=== PATIENT | male | born 1960 | race Two or more races ===

== ENCOUNTER → 2019-08-31 | Outpatient (CLI) | payer MEDICAID ==
[~2019-08-31] MED LIST: ASP81EC PO; ASPI-404 PO; BLOO1KIT60 XX; CHOL1CAP PO; COLC0.6T56 PO; DOCU100C8 PO; ERGO1CAP23 PO; ERGO50003 PO; FAM20T PO; FEBU40TA PO; FLU01T GT; FLU01T PO; GABA100C9 PO; GABA300C10 PO; HYDR-4833 PO; INSUINJ37 SC; LINE1TAB5 PO; MAGN400T21 PO; MAGN400T26 PO; MYCO250C PO; MYCO500T3 PO; PATI1POW PO; PRED20TA2 PO; SITA50TA PO; SODIPOW32 OR; SPECTAB OR; TACR1GRA PO; TACR1TAB2 PO; [UNRECOGNIZED DRUG - CODE] PO
[2019-08-31 15:15] LABS: Eosinophils # (auto) 0.2 uL; Eosinophils % (auto) 2.8 % (0.0-7.0); Lymphocytes # (auto) 0.5 uL; Monocytes # (auto) 0.4 uL
[2019-08-31 15:16] LABS: Basophils # (auto) 0 uL; Basophils % (auto) 0.5 % (0.0-2.0); Hematocrit 34.2 % (41.0-53.0); Hemoglobin 11.1 g/dL (13.5-17.5); Lymphocytes % (auto) 7.6 % (10.0-50.0); Mean Corpuscular Hemoglobin 27.4 pg (28.0-32.0); Mean Corpuscular Hgb Conc. 32.5 g/dL (32.0-36.0); Monocytes % (auto) 5.1 % (0.0-12.0); Neutrophils # (auto) 5.9 uL; Nucleated Red Blood Cells % 0.2 %; Platelet Count (auto) 89 10^3/uL (140-450); Red Blood Cells 4.07 10^6/uL (4.5-5.90); Red Cell Distribution Width 18.6 % (11.8-14.3)
[2019-08-31 15:32] LABS: Albumin 3.6 g/dL (3.4-5.0); Potassium 4.7 mmol/L (3.5-5.1)
[2019-08-31 15:36] LABS: BUN/Creatinine Ratio 25.6; Bilirubin, Total 0.3 mg/dL (0.2-1.0); Total Protein 7.7 g/dL (6.4-8.2); Uric Acid 4.8 mg/dL (3.5-7.2)
== END | disposition home or self-care (01) ==
LOC: LAB 14:43
PROVIDERS: ATTEND Internal Medicine
DX: E11.22 Type 2 diabetes mellitus with diabetic chronic kidney disease (principal); N18.3 Chronic kidney disease, stage 3 (moderate); M10.9 Gout, unspecified; D64.9 Anemia, unspecified
CPT/HCPCS: 36415; 80053; 84550; 85025

== ENCOUNTER 2019-09-07 10:51 | Emergency (ER) | payer MEDICAID ==
[~2019-09-07] VITALS: Ht 172.7 cm; Wt 84.8 kg
[2019-09-07 13:25] VITALS: BP 126/81
== END 2019-09-07 13:50 | disposition home or self-care (01) ==
LOC: ER 10:51
DX: S20.212A Contusion of left front wall of thorax, initial encounter (principal); E11.22 Type 2 diabetes mellitus with diabetic chronic kidney disease; N18.9 Chronic kidney disease, unspecified; Z94.4 Liver transplant status; Z79.899 Other long term (current) drug therapy; Z79.82 Long term (current) use of aspirin; V48.5XXA Car driver injured in noncollision transport accident in traffic accident, initial encounter; Y93.I9 Activity, other involving external motion; Y92.488 Other paved roadways as the place of occurrence of the external cause; Y99.8 Other external cause status
CPT/HCPCS: 71046; 93005

== ENCOUNTER → 2019-11-25 | Outpatient (CLI) | payer MEDICAID ==
[2019-11-25 09:13] LABS: Hemoglobin 12.9 g/dL (13.5-17.5); Lymphocytes # (auto) 0.7 10 ^3/uL (0.4-5.4); Monocytes # (auto) 0.3 10 ^3/uL (0-1.3); White Blood Cell 5.2 10^3/uL (4.4-10.8)
[2019-11-25 09:15] LABS: Basophils # (auto) 0.1 10 ^3/uL (0-0.2); Eosinophils # (auto) 0.2 10 ^3/uL (0-0.8); Eosinophils % (auto) 3.8 % (0.0-7.0); Hematocrit 38.7 % (41.0-53.0); Lymphocytes % (auto) 13.4 % (10.0-50.0); Mean Corpuscular Hemoglobin 28.1 pg (28.0-32.0); Mean Corpuscular Hgb Conc. 33.3 g/dL (32.0-36.0); Mean Corpuscular Volume 84.4 fL (80.0-100.0); Monocytes % (auto) 5.5 % (0.0-12.0); Neutrophils % (auto) 76.3 % (37.0-80.0); Nucleated Red Blood Cells % 0.4 %; Red Blood Cells 4.59 10^6/uL (4.5-5.90); Red Cell Distribution Width 16.5 % (11.8-14.3)
[2019-11-25 09:17] LABS: Platelet Count (auto) 55 10^3/uL (140-450)
[2019-11-25 09:36] LABS: INR 1.04 (0.9-1.15); Partial Thromboplastin Time 27.3 sec (23.64-32.05)
[2019-11-25 09:38] LABS: Albumin 3.9 g/dL (3.4-5.0); Calcium 8.7 mg/dL (8.5-10.1); Potassium 4.5 mmol/L (3.5-5.1)
[2019-11-25 09:44] LABS: BUN/Creatinine Ratio 23.6; Bilirubin, Total 0.5 mg/dL (0.2-1.0); Total Protein 7.5 g/dL (6.4-8.2)
== END | disposition home or self-care (01) ==
LOC: LAB 08:41
PROVIDERS: ATTEND Internal Medicine
DX: Z01.818 Encounter for other preprocedural examination (principal); M10.9 Gout, unspecified; E11.22 Type 2 diabetes mellitus with diabetic chronic kidney disease; N18.3 Chronic kidney disease, stage 3 (moderate); Z12.5 Encounter for screening for malignant neoplasm of prostate; Z12.11 Encounter for screening for malignant neoplasm of colon
CPT/HCPCS: 36415; 80053; 80061; 82043; 83036; 84153; 85025; 85610; 85730; 87086

== ENCOUNTER 2019-12-21 10:18 | Emergency (ER) | payer MEDICAID ==
[~2019-12-21] VITALS: Ht 152.4 cm; Wt 81.6 kg
[2019-12-21 11:11] LABS: Urine Bacteria NONE SEEN /hpf (None Seen); Urine Blood 1+ /uL (Negative); Urine Specific Gravity 1.019 (1.001-1.035); Urine WBC 2 /hpf (0 - 3)
[2019-12-21 11:21] LABS: Basophils # (auto) 0.1 10 ^3/uL (0-0.2); Basophils % (auto) 0.6 % (0.0-2.0); Eosinophils # (auto) 0.3 10 ^3/uL (0-0.8); Eosinophils % (auto) 3.4 % (0.0-7.0); Hematocrit 38.3 % (41.0-53.0); Hemoglobin 12.7 g/dL (13.5-17.5); Lymphocytes # (auto) 0.7 10 ^3/uL (0.4-5.4); Lymphocytes % (auto) 7.2 % (10.0-50.0); Mean Corpuscular Hemoglobin 28.3 pg (28.0-32.0); Mean Corpuscular Hgb Conc. 33.1 g/dL (32.0-36.0); Mean Corpuscular Volume 85.4 fL (80.0-100.0); Monocytes # (auto) 0.6 10 ^3/uL (0-1.3); Monocytes % (auto) 6.2 % (0.0-12.0); Neutrophils # (auto) 7.5 10 ^3/uL (1.6-8.6); Neutrophils % (auto) 82.6 % (37.0-80.0); Nucleated Red Blood Cells % 0.1 %; Platelet Count (auto) 77 10^3/uL (140-450); Red Blood Cells 4.49 10^6/uL (4.5-5.90); Red Cell Distribution Width 15.6 % (11.8-14.3); White Blood Cell 9.1 10^3/uL (4.4-10.8)
[2019-12-21 11:40] LABS: Albumin 3.7 g/dL (3.4-5.0); Calcium 9.2 mg/dL (8.5-10.1); Potassium 4.1 mmol/L (3.5-5.1)
[2019-12-21 11:42] LABS: BUN/Creatinine Ratio 20.6; Bilirubin, Total 0.3 mg/dL (0.2-1.0); Total Protein 7.9 g/dL (6.4-8.2)
[2019-12-21] MEDS ORDERED: LIDOCAINE 1% (LOCAL ANESTH.) PF 5ml SDV ID ONE (12:00)
[2019-12-21] MEDS ORDERED: LIDOCAINE 2% (LOCAL ANESTH.) PF 5ml SDV ONE (13:39)
[2019-12-21 14:56] VITALS: BP 142/84
== END 2019-12-21 15:06 | disposition home or self-care (01) ==
LOC: ER 10:18
DX: M25.462 Effusion, left knee (principal); R10.9 Unspecified abdominal pain; E11.22 Type 2 diabetes mellitus with diabetic chronic kidney disease; N18.9 Chronic kidney disease, unspecified
CPT/HCPCS: 20610; 36415; 73562; 74176; 80053; 81001; 84550; 85025; 99285; J2001

== ENCOUNTER → 2019-12-23 | Outpatient (CLI) | payer MEDICAID ==
[2019-12-23 11:35] LABS: Potassium 4.9 mmol/L (3.5-5.1)
[2019-12-23 11:40] LABS: BUN/Creatinine Ratio 20.6; Calcium 8.9 mg/dL (8.5-10.1)
[2019-12-23 11:49] LABS: CRP High Sensitivity 17.1 mg/dL (< 0.3)
== END | disposition home or self-care (01) ==
LOC: LAB 10:54
PROVIDERS: ATTEND Internal Medicine
DX: E11.21 Type 2 diabetes mellitus with diabetic nephropathy (principal); I27.20 Pulmonary hypertension, unspecified; D69.6 Thrombocytopenia, unspecified
CPT/HCPCS: 36415; 80048; 85652; 86141

== ENCOUNTER → 2020-01-06 | Outpatient (CLI) | payer MEDICAID ==
[2020-01-06 14:27] LABS: Calcium 8.4 mg/dL (8.5-10.1); Potassium 3.6 mmol/L (3.5-5.1)
[2020-01-06 14:29] LABS: BUN/Creatinine Ratio 23.6; Uric Acid 2.9 mg/dL (3.5-7.2)
== END | disposition home or self-care (01) ==
LOC: LAB 13:16
PROVIDERS: ATTEND Internal Medicine
DX: E11.9 Type 2 diabetes mellitus without complications (principal); M17.10 Unilateral primary osteoarthritis, unspecified knee
CPT/HCPCS: 36415; 80048; 84550

== ENCOUNTER → 2020-01-17 | Outpatient (CLI) | payer MEDICAID ==
[~2020-01-17] MED LIST changes: -ASP81EC PO; +ASPI-394 PO; -FAM20T PO; +FAMO20TA10 PO
[2020-01-17 09:55] LABS: Potassium 3.4 mmol/L (3.5-5.1)
[2020-01-17 10:06] LABS: BUN/Creatinine Ratio 18.8; Calcium 8.9 mg/dL (8.5-10.1)
== END | disposition home or self-care (01) ==
LOC: LAB 09:10
PROVIDERS: ATTEND Internal Medicine
DX: E11.9 Type 2 diabetes mellitus without complications (principal)
CPT/HCPCS: 36415; 80048

== ENCOUNTER 2020-02-13 10:36 | Inpatient (IN) | payer MEDICAID ==
[~2020-02-13] VITALS: Ht 172.7 cm; Wt 97.5 kg
[~2020-02-13 10:36] MED LIST changes: -ASPI-404 PO; +ASPI-543 PO
[2020-02-13 11:45] LABS: Basophils # (auto) 0 10 ^3/uL (0-0.2); Basophils % (auto) 0.6 % (0.0-2.0); Eosinophils # (auto) 0.3 10 ^3/uL (0-0.8); Eosinophils % (auto) 4.7 % (0.0-7.0); Hematocrit 38.2 % (41.0-53.0); Hemoglobin 12.5 g/dL (13.5-17.5); Lymphocytes # (auto) 0.8 10 ^3/uL (0.4-5.4); Lymphocytes % (auto) 13.4 % (10.0-50.0); Mean Corpuscular Hemoglobin 27.4 pg (28.0-32.0); Mean Corpuscular Hgb Conc. 32.8 g/dL (32.0-36.0); Mean Corpuscular Volume 83.5 fL (80.0-100.0); Monocytes # (auto) 0.3 10 ^3/uL (0-1.3); Monocytes % (auto) 5.7 % (0.0-12.0); Neutrophils # (auto) 4.6 10 ^3/uL (1.6-8.6); Neutrophils % (auto) 75.6 % (37.0-80.0); Nucleated Red Blood Cells % 0.1 %; Platelet Count (auto) 65 10^3/uL (140-450); Red Blood Cells 4.58 10^6/uL (4.5-5.90); Red Cell Distribution Width 17.1 % (11.8-14.3)
[2020-02-13 12:08] LABS: Potassium 5.2 mmol/L (3.5-5.1)
[2020-02-13 12:16] LABS: Albumin 3.8 g/dL (3.4-5.0); BUN/Creatinine Ratio 24.4; Bilirubin, Total 0.3 mg/dL (0.2-1.0); Calcium 9.1 mg/dL (8.5-10.1); Total Protein 7.4 g/dL (6.4-8.2)
[2020-02-13 13:54] LABS: Magnesium 2.1 mg/dL (1.6-2.6)
[2020-02-13] MEDS ORDERED: MORPHINE SULF INJ 2 MG/ML SYRINGE 1ML IV PRN ×2 (14:15→15:15)
[2020-02-13] MEDS ORDERED: NITROGLYCERIN 0.4 MG SL TAB SL PRN (14:15)
[2020-02-13] MEDS ORDERED: PROMETHAZINE HCL 25 MG/ML 1ML IV PRN (15:15)
[2020-02-13] MEDS ORDERED: FUROSEMIDE 20 MG/2 ML VIAL IV ONE (15:15)
[2020-02-13] MEDS ORDERED: TEMAZEPAM 15 MG CAP PO PRN (15:15)
[2020-02-13] MEDS ORDERED: DEXTROSE (50%) 50ML SYRG IV PRN (15:15)
[2020-02-13] MEDS ORDERED: SODIUM CHLORIDE 0.9% 1,000 ML IV ONE (15:15)
[2020-02-13] MEDS: SODIUM CHLORIDE 0.9% 1,000 ML IV SCH (16:06)
[2020-02-13 17:38] VITALS: BP 131/89
[2020-02-13] MEDS: InsuLIN REG 1unit/0.01ml Soln (100units/ml) SC SCH ×2 (17:40→21:59)
[2020-02-13] MEDS: ACCU-CHEK COMFORT CURVE STRIP VI SCH ×2 (17:40→21:58)
--- NOTE | 2020-02-13 19:20 | NUR ---
OPENING SHIFT NOTE: Assumed care of patient. Patient awake, alert and oriented x 4. No s/s of SOB or distress, patient denies pain. Bed in lowest locked position with two side rails raised and call black within reach. Instructed on POC and encouraged to call for assistance, all questions and concerns addressed, patient verbalizes understanding. Will continue to monitor Q1 hr and PRN.
[2020-02-13 20:00] VITALS: BP 119/86
[2020-02-13] MEDS: MYCOPHENOLATE 500 MG TAB PO SCH (21:35)
[2020-02-13] MEDS: DOCUSATE SOD 100 MG CAP PO SCH (21:36)
[2020-02-13] MEDS: COLCHICINE 0.6 MG CAP PO SCH (21:36)
[2020-02-13] MEDS: MAGNESIUM OXIDE 400 MG TAB PO SCH (21:37)
[2020-02-13] MEDS: GABAPENTIN 300 MG CAP PO SCH (21:37)
[2020-02-13] MEDS: INSULIN LANTUS (GLARGINE) 1 /0.01ml (100units/ml) SC SCH (21:58)
[2020-02-13 22:00] VITALS: BP 119/86
[2020-02-14] MEDS: SODIUM CHLORIDE 0.9% 1,000 ML IV SCH ×3 (01:12→21:41)
[2020-02-14 05:00] VITALS: BP 92/59
[2020-02-14] MEDS: ACCU-CHEK COMFORT CURVE STRIP VI SCH ×4 (06:07→22:28)
[2020-02-14] MEDS: InsuLIN REG 1unit/0.01ml Soln (100units/ml) SC SCH ×4 (06:07→22:29)
[2020-02-14] MEDS: SUCRALFATE 1 GM/10 ML ORAL SUSP PO SCH ×4 (06:26→22:27)
[2020-02-14] MEDS: MAGNESIUM OXIDE 400 MG TAB PO SCH ×4 (06:26→22:27)
[2020-02-14] MEDS: GABAPENTIN 300 MG CAP PO SCH ×3 (06:26→22:28)
[2020-02-14 08:00] VITALS: BP 110/72
[2020-02-14 08:21] LABS: Albumin 3.6 g/dL (3.4-5.0); Calcium 8.6 mg/dL (8.5-10.1); Potassium 4.4 mmol/L (3.5-5.1)
[2020-02-14 08:24] LABS: Bilirubin, Total 0.6 mg/dL (0.2-1.0); Total Protein 6.9 g/dL (6.4-8.2)
[2020-02-14 08:50] LABS: Urine Bacteria NONE SEEN /hpf (None Seen); Urine Blood 1+ /uL (Negative); Urine Specific Gravity 1.013 (1.001-1.035); Urine WBC 1 /hpf (0 - 3)
[2020-02-14 09:00] VITALS: BP 110/72
[2020-02-14] MEDS: PANTOPRAZOLE 40 MG/10 ML VIAL INJ IV SCH (09:31)
[2020-02-14] MEDS: predniSONE 5 MG TAB PO SCH (09:32)
[2020-02-14] MEDS: PATIROMER PO SCH (09:32)
[2020-02-14] MEDS: SITAGLIPTIN PHOSPHATE 50 MG PO SCH (09:32)
[2020-02-14] MEDS: SODIUM POLYSTYRENE SULF 15 GM POWDER PO SCH (09:35)
[2020-02-14] MEDS: DOCUSATE SOD 100 MG CAP PO SCH ×2 (09:35→22:27)
[2020-02-14] MEDS: FAMOTIDINE 20 MG TAB PO SCH (09:36)
[2020-02-14] MEDS: COLCHICINE 0.6 MG CAP PO SCH ×2 (09:36→22:27)
[2020-02-14] MEDS: CHOLECALCIFEROL (VITD3) 1,000UNIT=25mCg TAB PO SCH (09:37)
[2020-02-14] MEDS ORDERED: FLUDROCORTISONE ACETATE 0.1 MG TAB GT SCH (10:00)
[2020-02-14] MEDS: MYCOPHENOLATE 500 MG TAB PO SCH ×2 (10:00→11:04)
[2020-02-14] MEDS ORDERED: ATOVAQUONE 750 MG PO SCH (10:00)
--- NOTE | 2020-02-14 10:40 | NUR ---
Dr Townsend bedside with patient discussing plan of care. Orders received and carried out
[2020-02-14] MEDS ORDERED: TACROLIMUS 1 MG CAP PO SCH ×2 (11:15→22:00)
[2020-02-14] MEDS ORDERED: PRE1T PO (11:20)
[2020-02-14] MEDS ORDERED: PANT40TA2 PO (11:20)
[2020-02-14] MEDS ORDERED: ZINC100T5 PO (11:20)
--- NOTE | 2020-02-14 11:20 | NUR ---
Med Rec Patient provided me with a list of all home meds, updated in Med Rec and notified Dr Townsend of corrected dosages. Mycophenolate medication held due to wrong dosage, aware.
[2020-02-14 13:00] VITALS: BP 116/77
[2020-02-14] MEDS: SULFAMETHOX W/TRIMETH(800/160MG) DS TAB PO SCH (13:10)
--- NOTE | 2020-02-14 16:58 | NUR ---
Pharmacy Spoke with pharmacist and informed her medications and dosages have been updated in med rec. Patients Cellcept medication dose needs to be adjusted to correct dose so patient can receive med today. Per pharmacist, she will contact Dr. Townsend
[2020-02-14 17:00] VITALS: BP 131/83
[2020-02-14] MEDS: MYCOPHENOLATE 250 MG CAP PO SCH (18:35)
[2020-02-14] MEDS: TACROLIMUS 1 MG CAP PO SCH (18:35)
[2020-02-14 22:00] VITALS: BP 115/75
[2020-02-14] MEDS: INSULIN LANTUS (GLARGINE) 1 /0.01ml (100units/ml) SC SCH (22:29)
[2020-02-14] MEDS: MORPHINE SULF INJ 2 MG/ML SYRINGE 1ML IV PRN (22:39)
[2020-02-15] MEDS: MORPHINE SULF INJ 2 MG/ML SYRINGE 1ML IV PRN (04:27)
[2020-02-15 05:00] VITALS: BP 109/75
[2020-02-15] MEDS: GABAPENTIN 300 MG CAP PO SCH ×2 (06:28→13:49)
[2020-02-15] MEDS: MAGNESIUM OXIDE 400 MG TAB PO SCH ×3 (06:28→13:49)
[2020-02-15] MEDS: SUCRALFATE 1 GM/10 ML ORAL SUSP PO SCH ×2 (06:28→11:34)
[2020-02-15] MEDS: ACCU-CHEK COMFORT CURVE STRIP VI SCH ×2 (06:29→11:34)
[2020-02-15] MEDS: InsuLIN REG 1unit/0.01ml Soln (100units/ml) SC SCH ×2 (06:29→11:34)
[2020-02-15] MEDS: SODIUM CHLORIDE 0.9% 1,000 ML IV SCH (06:52)
[2020-02-15 07:07] LABS: Basophils # (auto) 0 10 ^3/uL (0-0.2); Basophils % (auto) 0.6 % (0.0-2.0); Lymphocytes # (auto) 0.9 10 ^3/uL (0.4-5.4); Monocytes # (auto) 0.3 10 ^3/uL (0-1.3); Neutrophils # (auto) 3.8 10 ^3/uL (1.6-8.6); Nucleated Red Blood Cells % 0.2 %; White Blood Cell 5.3 10^3/uL (4.4-10.8)
[2020-02-15 07:10] LABS: Eosinophils # (auto) 0.2 10 ^3/uL (0-0.8); Eosinophils % (auto) 4.4 % (0.0-7.0); Hematocrit 36.6 % (41.0-53.0); Lymphocytes % (auto) 16.7 % (10.0-50.0); Mean Corpuscular Hemoglobin 27.2 pg (28.0-32.0); Mean Corpuscular Hgb Conc. 32.9 g/dL (32.0-36.0); Mean Corpuscular Volume 82.7 fL (80.0-100.0); Monocytes % (auto) 6.4 % (0.0-12.0); Neutrophils % (auto) 71.9 % (37.0-80.0); Platelet Count (auto) 56 10^3/uL (140-450); Red Blood Cells 4.43 10^6/uL (4.5-5.90); Red Cell Distribution Width 17.2 % (11.8-14.3)
[2020-02-15 07:18] LABS: BUN/Creatinine Ratio 23.2; Calcium 8.2 mg/dL (8.5-10.1); Potassium 4.5 mmol/L (3.5-5.1)
--- NOTE | 2020-02-15 08:00 | NUR ---
Opening Shift Note Assumed care of patient, awake, alert and oriented X4. No S/S of distress/SOB, complains of right posterior flank pain, 01/13. Tele# 87, sinus rhythm @ 64 bpm. IV to right antecubital, 20 gauge, patent and infusing 0.9% NS @ 100 ml/hr. Instructed on POC and to call for assist PRN, verbalized understanding. Bed locked, in lowest position, call light within reach, will continue to monitor for changes Q1hr and PRN.
[2020-02-15 09:00] VITALS: BP 114/71
--- NOTE | 2020-02-15 09:30 | NUR ---
ROUNDS' Dr Townsend at bedside for rounds, new orders received and followed through. Patient updated on plan of care. verbalized understanding.
[2020-02-15] MEDS: PATIROMER PO SCH (10:00)
[2020-02-15] MEDS: SITAGLIPTIN PHOSPHATE 50 MG PO SCH (10:00)
[2020-02-15] MEDS: SODIUM POLYSTYRENE SULF 15 GM POWDER PO SCH (10:00)
[2020-02-15] MEDS ORDERED: PANT40TA2 PO (10:03)
[2020-02-15] MEDS ORDERED: SUCR1SUS10 PO (10:03)
[2020-02-15] MEDS: PANTOPRAZOLE 40 MG/10 ML VIAL INJ IV SCH (10:35)
[2020-02-15] MEDS: SULFAMETHOX W/TRIMETH(800/160MG) DS TAB PO SCH (10:36)
[2020-02-15] MEDS: predniSONE 5 MG TAB PO SCH (10:36)
[2020-02-15] MEDS: FAMOTIDINE 20 MG TAB PO SCH (10:37)
[2020-02-15] MEDS: CHOLECALCIFEROL (VITD3) 1,000UNIT=25mCg TAB PO SCH (10:37)
[2020-02-15] MEDS: DOCUSATE SOD 100 MG CAP PO SCH (10:37)
[2020-02-15] MEDS ORDERED: FLUDROCORTISONE ACETATE 0.1 MG TAB PO SCH (10:45)
[2020-02-15] MEDS: MYCOPHENOLATE 250 MG CAP PO SCH (11:32)
[2020-02-15] MEDS: COLCHICINE 0.6 MG CAP PO SCH (11:32)
[2020-02-15] MEDS: TACROLIMUS 1 MG CAP PO SCH (11:34)
[2020-02-15 11:57] VITALS: BP 114/71
[2020-02-15 12:00] VITALS: BP 130/79
--- NOTE | 2020-02-15 15:09 | NUR ---
GI Follow Up Dr Asif Boswell at bedside for GI follow up. No new orders received at this time.
--- NOTE | 2020-02-15 15:45 | NUR ---
Discharge instructions given as ordered. Encourage to follow up with PMD as instructed. All questions and concerns addressed. Patient verbalized understanding. Medication reconciliation form completed and copy given to patient. IV removed with catheter intact, pressure dressing applied. Telemetry unit returned to ICU. Patient taken to vehicle via wheelchair with all personal belongings, accompanied by staff member. No distress noted at time of departure.
== END 2020-02-15 16:00 | disposition home or self-care (01) | DRG 241 ==
LOC: ER 10:36 → TELE 10:37 → TELE-WESTW 17:17
PROVIDERS: ADMIT Internal Medicine; ATTEND Internal Medicine Pulmonary Disease
DX: K29.90 Gastroduodenitis, unspecified, without bleeding (principal); E11.40 Type 2 diabetes mellitus with diabetic neuropathy, unspecified; N18.3 Chronic kidney disease, stage 3 (moderate); E11.22 Type 2 diabetes mellitus with diabetic chronic kidney disease; D69.6 Thrombocytopenia, unspecified; E78.5 Hyperlipidemia, unspecified; Z94.4 Liver transplant status; E87.5 Hyperkalemia; M10.9 Gout, unspecified; E11.65 Type 2 diabetes mellitus with hyperglycemia; N28.9 Disorder of kidney and ureter, unspecified; E66.01 Morbid (severe) obesity due to excess calories; Z68.35 Body mass index [BMI] 35.0-35.9, adult; Z82.49 Family history of ischemic heart disease and other diseases of the circulatory system; Z83.3 Family history of diabetes mellitus
CPT/HCPCS: 36415; 71045; 74176; 80048; 80053; 81001; 82150; 82962; 83036; 83690; 83735; 85025; 85652; 86141; 96361; 96374; 96375; C9113; G0378; J1815; J7507; J7517

== ENCOUNTER → 2020-02-21 | Outpatient (CLI) | payer MEDICAID ==
[~2020-02-21] MED LIST changes: +PANT40TA2 PO; +PRE1T PO; +SUCR1SUS10 PO; +ZINC100T5 PO
[2020-02-21 10:05] LABS: CRP High Sensitivity 0.09 mg/dL (< 0.3); Calcium 8.8 mg/dL (8.5-10.1); Potassium 4.1 mmol/L (3.5-5.1); Uric Acid 3.7 mg/dL (3.5-7.2)
== END | disposition home or self-care (01) ==
LOC: LAB 08:58
PROVIDERS: ATTEND Internal Medicine
DX: M79.671 Pain in right foot (principal); E87.6 Hypokalemia
CPT/HCPCS: 36415; 80048; 84550; 85652; 86141

== ENCOUNTER → 2020-02-22 | Outpatient (CLI) | payer MEDICAID ==
[2020-02-22 15:38] LABS: Eosinophils # (auto) 0.3 10 ^3/uL (0-0.8); Monocytes # (auto) 0.4 10 ^3/uL (0-1.3); Neutrophils # (auto) 5.9 10 ^3/uL (1.6-8.6); Platelet Count (auto) 64 10^3/uL (140-450); White Blood Cell 7.2 10^3/uL (4.4-10.8)
[2020-02-22 15:41] LABS: Basophils # (auto) 0 10 ^3/uL (0-0.2); Basophils % (auto) 0.6 % (0.0-2.0); Eosinophils % (auto) 4.2 % (0.0-7.0); Hematocrit 38.9 % (41.0-53.0); Hemoglobin 12.6 g/dL (13.5-17.5); INR 1.04 (0.9-1.15); Lymphocytes # (auto) 0.6 10 ^3/uL (0.4-5.4); Lymphocytes % (auto) 7.7 % (10.0-50.0); Mean Corpuscular Hemoglobin 27.6 pg (28.0-32.0); Mean Corpuscular Hgb Conc. 32.5 g/dL (32.0-36.0); Monocytes % (auto) 5.5 % (0.0-12.0); Red Blood Cells 4.57 10^6/uL (4.5-5.90); Red Cell Distribution Width 17.9 % (11.8-14.3)
[2020-02-22 15:45] LABS: Urine Bacteria NONE SEEN /hpf (None Seen); Urine Blood 2+ /uL (Negative); Urine Hyaline Cast FEW /lpf (0 - 2); Urine Mucus FEW (None Seen); Urine Specific Gravity 1.023 (1.001-1.035); Urine Sperm PRESENT /hpf (None Seen); Urine WBC 2 /hpf (0 - 3)
[2020-02-22 16:06] LABS: Calcium 8.9 mg/dL (8.5-10.1); Potassium 4.9 mmol/L (3.5-5.1)
[2020-02-22 16:09] LABS: BUN/Creatinine Ratio 21.6; Bilirubin, Total 0.6 mg/dL (0.2-1.0); Total Protein 7.5 g/dL (6.4-8.2)
== END | disposition home or self-care (01) ==
LOC: LAB 15:08
PROVIDERS: ATTEND Internal Medicine
DX: Z01.818 Encounter for other preprocedural examination (principal); E11.9 Type 2 diabetes mellitus without complications; D69.6 Thrombocytopenia, unspecified
CPT/HCPCS: 36415; 80053; 81001; 83036; 85025; 85610; 85730; 86803

== ENCOUNTER 2020-04-10 14:21 | Emergency (ER) | payer MEDICAID ==
[~2020-04-10] VITALS: Ht 170.2 cm; Wt 79.4 kg
[2020-04-10 14:47] VITALS: BP 130/94
== END 2020-04-10 16:58 | disposition home or self-care (01) ==
LOC: ER 14:21
DX: F41.9 Anxiety disorder, unspecified (principal); E11.22 Type 2 diabetes mellitus with diabetic chronic kidney disease; N18.9 Chronic kidney disease, unspecified; Z79.82 Long term (current) use of aspirin; Z79.899 Other long term (current) drug therapy
CPT/HCPCS: 71045

== ENCOUNTER 2020-05-03 11:31 | Emergency (ER) | payer MEDICAID ==
[~2020-05-03] VITALS: Ht 172.7 cm; Wt 95.3 kg
[2020-05-03 11:41] VITALS: BP 147/79
[2020-05-03 13:12] LABS: Basophils # (auto) 0 10 ^3/uL (0-0.2); Basophils % (auto) 0.8 % (0.0-2.0); Eosinophils # (auto) 0.1 10 ^3/uL (0-0.8); Eosinophils % (auto) 1.5 % (0.0-7.0); Hematocrit 31.2 % (41.0-53.0); Hemoglobin 10.6 g/dL (13.5-17.5); Lymphocytes # (auto) 0.5 10 ^3/uL (0.4-5.4); Lymphocytes % (auto) 7.8 % (10.0-50.0); Mean Corpuscular Hemoglobin 27.9 pg (28.0-32.0); Mean Corpuscular Hgb Conc. 34.2 g/dL (32.0-36.0); Mean Corpuscular Volume 81.8 fL (80.0-100.0); Monocytes # (auto) 0.5 10 ^3/uL (0-1.3); Monocytes % (auto) 7.9 % (0.0-12.0); Neutrophils # (auto) 4.8 10 ^3/uL (1.6-8.6); Platelet Count (auto) 70 10^3/uL (140-450); Red Blood Cells 3.81 10^6/uL (4.5-5.90); White Blood Cell 5.8 10^3/uL (4.4-10.8)
[2020-05-03 13:55] LABS: BUN/Creatinine Ratio 14.4; Calcium 8.6 mg/dL (8.5-10.1); Potassium 3.9 mmol/L (3.5-5.1); Uric Acid 3.4 mg/dL (3.5-7.2)
[2020-05-03] MEDS ORDERED: methylPREDNISolone SOD SUCC 125 MG/2 ML VL IM ONE (14:00)
[2020-05-03] MEDS ORDERED: traMADol HCL 50 MG TAB PO ONE (14:00)
== END 2020-05-03 14:19 | disposition home or self-care (01) ==
LOC: ER 11:31
DX: M10.9 Gout, unspecified (principal); M25.571 Pain in right ankle and joints of right foot; M25.561 Pain in right knee; E11.22 Type 2 diabetes mellitus with diabetic chronic kidney disease; N18.9 Chronic kidney disease, unspecified; E78.00 Pure hypercholesterolemia, unspecified; Z79.899 Other long term (current) drug therapy
CPT/HCPCS: 36415; 80048; 84550; 85025; 96372; 99283; J2930

== ENCOUNTER 2020-09-03 15:33 | Emergency (ER) | payer MEDICAID ==
[~2020-09-03] VITALS: Ht 165.1 cm; Wt 99.8 kg
[~2020-09-03 15:33] MED LIST changes: +DOCU100C10 PO; -DOCU100C8 PO; +MAGN241.4 PO; -MAGN400T21 PO
[2020-09-03] MEDS ORDERED: cloNIDine HCL 0.1 MG TAB PO ONE (15:45)
[2020-09-03] MEDS ORDERED: LABETALOL HCL 5 MG/ML 4ML SYRINGE IV ONE (16:15)
[2020-09-03] MEDS ORDERED: SODIUM CHLORIDE 0.9% 1,000 ML IV ONE (16:15)
[2020-09-03 16:23] LABS: Basophils # (auto) 0 10 ^3/uL (0-0.2); Basophils % (auto) 0.9 % (0.0-2.0); Eosinophils # (auto) 0.1 10 ^3/uL (0-0.8); Eosinophils % (auto) 3.4 % (0.0-7.0); Hematocrit 33.4 % (41.0-53.0); Hemoglobin 11.5 g/dL (13.5-17.5); Lymphocytes # (auto) 0.4 10 ^3/uL (0.4-5.4); Lymphocytes % (auto) 10.4 % (10.0-50.0); Mean Corpuscular Hemoglobin 28.2 pg (28.0-32.0); Mean Corpuscular Hgb Conc. 34.5 g/dL (32.0-36.0); Mean Corpuscular Volume 81.6 fL (80.0-100.0); Monocytes # (auto) 0.2 10 ^3/uL (0-1.3); Monocytes % (auto) 5.2 % (0.0-12.0); Neutrophils # (auto) 3.1 10 ^3/uL (1.6-8.6); Neutrophils % (auto) 80.1 % (37.0-80.0); Nucleated Red Blood Cells % 0.1 %; Platelet Count (auto) 71 10^3/uL (140-450); Red Cell Distribution Width 15.6 % (11.8-14.3); White Blood Cell 3.9 10^3/uL (4.4-10.8)
[2020-09-03 16:41] LABS: Albumin 2.8 g/dL (3.4-5.0); Calcium 8.1 mg/dL (8.5-10.1); Potassium 3.3 mmol/L (3.5-5.1)
[2020-09-03 16:44] LABS: BUN/Creatinine Ratio 14.3; Bilirubin, Total 0.4 mg/dL (0.2-1.0)
[2020-09-03 17:06] LABS: Magnesium 1.7 mg/dL (1.6-2.6)
[2020-09-03] MEDS ORDERED: POTASSIUM EFFERVESENT TAB 25 MEQ PO ONE (17:45)
[2020-09-03 18:34] VITALS: BP 135/92
== END 2020-09-03 19:16 | disposition home or self-care (01) ==
LOC: ER 15:33
DX: E11.22 Type 2 diabetes mellitus with diabetic chronic kidney disease (principal); I12.9 Hypertensive chronic kidney disease with stage 1 through stage 4 chronic kidney disease, or unspecified chronic kidney disease; N18.9 Chronic kidney disease, unspecified; R51.9 Headache, unspecified; E87.6 Hypokalemia; E11.21 Type 2 diabetes mellitus with diabetic nephropathy; E44.0 Moderate protein-calorie malnutrition; E03.9 Hypothyroidism, unspecified; E78.5 Hyperlipidemia, unspecified; Z94.4 Liver transplant status; Z68.36 Body mass index [BMI] 36.0-36.9, adult
CPT/HCPCS: 36415; 70450; 71046; 80053; 83735; 84443; 84484; 85025; 93005; 96361; 96374; 99285; J3490; J7030

== ENCOUNTER 2020-09-24 13:03 | Emergency (ER) | payer MEDICAID ==
[~2020-09-24] VITALS: Ht 175.3 cm; Wt 95.3 kg
[2020-09-24] MEDS ORDERED: amLODIPine BESYLATE 5 MG TAB PO ONE (13:15)
[2020-09-24 14:57] LABS: Basophils # (auto) 0 10 ^3/uL (0-0.2); Basophils % (auto) 0.7 % (0.0-2.0); Eosinophils # (auto) 0.2 10 ^3/uL (0-0.8); Eosinophils % (auto) 4.8 % (0.0-7.0); Hematocrit 26.1 % (41.0-53.0); Hemoglobin 9.1 g/dL (13.5-17.5); Lymphocytes # (auto) 0.6 10 ^3/uL (0.4-5.4); Lymphocytes % (auto) 19.3 % (10.0-50.0); Mean Corpuscular Hemoglobin 28.7 pg (28.0-32.0); Mean Corpuscular Hgb Conc. 34.9 g/dL (32.0-36.0); Mean Corpuscular Volume 82.1 fL (80.0-100.0); Monocytes # (auto) 0.2 10 ^3/uL (0-1.3); Neutrophils # (auto) 2.2 10 ^3/uL (1.6-8.6); Neutrophils % (auto) 68.2 % (37.0-80.0); Nucleated Red Blood Cells % 0.1 %; Platelet Count (auto) 73 10^3/uL (140-450); Red Blood Cells 3.18 10^6/uL (4.5-5.90); Red Cell Distribution Width 15.7 % (11.8-14.3); White Blood Cell 3.2 10^3/uL (4.4-10.8)
[2020-09-24 15:13] LABS: Albumin 2.1 g/dL (3.4-5.0); Anion Gap 8 (5-15); Blood Urea Nitrogen 32 mg/dL (7-18); Calcium 6.9 mg/dL (8.5-10.1); Carbon Dioxide 25 mmol/L (21-32); Chloride 114 mmol/L (98-107); Glucose 100 mg/dL (74-106); Potassium 3.6 mmol/L (3.5-5.1); Sodium 147 mmol/L (136-145)
[2020-09-24 15:15] LABS: Alanine Aminotransferase 21 U/L (16-61); Aspartate Aminotransferase 32 U/L (15-37); BUN/Creatinine Ratio 15.9; GFR African American 44 mL/min; GFR Non-African American 36 mL/min
[2020-09-24 15:19] LABS: Alkaline Phosphatase 77 U/L (45-117); Bilirubin, Total 0.4 mg/dL (0.2-1.0); Total Protein 5.2 g/dL (6.4-8.2)
[2020-09-24] MEDS ORDERED: CALCIUM ACETATE 667 MG CAP PO ONE (15:45)
[2020-09-24 16:00] VITALS: BP 147/62
[2020-09-24] MEDS ORDERED: HYDROcodone-ACET 10/325MG TAB PO ONE (16:00)
== END 2020-09-24 16:24 | disposition admitted as inpatient to this hospital (09) ==
LOC: ER 13:03
DX: I12.9 Hypertensive chronic kidney disease with stage 1 through stage 4 chronic kidney disease, or unspecified chronic kidney disease (principal); E11.22 Type 2 diabetes mellitus with diabetic chronic kidney disease; N18.9 Chronic kidney disease, unspecified; E43 Unspecified severe protein-calorie malnutrition; E83.51 Hypocalcemia; E87.0 Hyperosmolality and hypernatremia; E78.5 Hyperlipidemia, unspecified; D64.9 Anemia, unspecified; Z79.899 Other long term (current) drug therapy; Z79.82 Long term (current) use of aspirin
CPT/HCPCS: 36415; 70450; 80053; 84484; 85025; 93005

== ENCOUNTER 2020-09-29 10:59 | Inpatient (IN) | payer MEDICAID ==
[~2020-09-29] VITALS: Ht 177.8 cm; Wt 105.7 kg
[2020-09-29] MEDS ORDERED: MORPHINE SULFATE 4 MG/ML SYR/VIAL IV ONE (11:15)
[2020-09-29] MEDS ORDERED: ONDANSETRON HCL 4 MG/2 ML VIAL IV ONE (11:15)
[2020-09-29] MEDS ORDERED: ASPirin 81 mg TAB PO ONE (11:15)
[2020-09-29 11:36] LABS: Basophils # (auto) 0 10 ^3/uL (0-0.2); Basophils % (auto) 0.5 % (0.0-2.0); Eosinophils # (auto) 0.2 10 ^3/uL (0-0.8); Eosinophils % (auto) 3.6 % (0.0-7.0); Hemoglobin 9.9 g/dL (13.5-17.5); Lymphocytes # (auto) 0.5 10 ^3/uL (0.4-5.4); Lymphocytes % (auto) 10.7 % (10.0-50.0); Mean Corpuscular Hemoglobin 28.1 pg (28.0-32.0); Mean Corpuscular Hgb Conc. 34.3 g/dL (32.0-36.0); Mean Corpuscular Volume 81.9 fL (80.0-100.0); Monocytes # (auto) 0.3 10 ^3/uL (0-1.3); Monocytes % (auto) 5.6 % (0.0-12.0); Neutrophils # (auto) 3.8 10 ^3/uL (1.6-8.6); Neutrophils % (auto) 79.6 % (37.0-80.0); Nucleated Red Blood Cells % 0.1 %; Platelet Count (auto) 76 10^3/uL (140-450); Red Blood Cells 3.54 10^6/uL (4.5-5.90); Red Cell Distribution Width 15.5 % (11.8-14.3); White Blood Cell 4.8 10^3/uL (4.4-10.8)
[2020-09-29 11:56] LABS: Alanine Aminotransferase 19 U/L (16-61); Albumin 2.4 g/dL (3.4-5.0); Anion Gap 6 (5-15); Blood Urea Nitrogen 30 mg/dL (7-18); Calcium 7.4 mg/dL (8.5-10.1); Carbon Dioxide 28 mmol/L (21-32); Chloride 112 mmol/L (98-107); Glucose 171 mg/dL (74-106); Magnesium 1.7 mg/dL (1.6-2.6); Potassium 3.9 mmol/L (3.5-5.1); Sodium 146 mmol/L (136-145)
[2020-09-29 12:06] LABS: Alkaline Phosphatase 90 U/L (45-117); Aspartate Aminotransferase 16 U/L (15-37); BUN/Creatinine Ratio 14.5; Bilirubin, Total 0.3 mg/dL (0.2-1.0); GFR African American 42 mL/min; GFR Non-African American 35 mL/min; Total Protein 5.7 g/dL (6.4-8.2)
[2020-09-29] MEDS ORDERED: MORPHINE SULF INJ 2 MG/ML SYRINGE 1ML IV PRN ×3 (13:45→16:00)
[2020-09-29] MEDS ORDERED: NITROGLYCERIN 0.4 MG SL TAB SL PRN ×2 (13:45→16:00)
[2020-09-29] MEDS ORDERED: DOCUSATE SOD 100 MG CAP PO PRN (16:00)
[2020-09-29] MEDS ORDERED: ALUM & MAG HYDROX-SIMETH LIQ(MAALOX) 30 ML PO PRN (16:00)
[2020-09-29] MEDS ORDERED: ONDANSETRON HCL 4 MG/2 ML VIAL IV PRN (16:00)
[2020-09-29] MEDS ORDERED: ENOXAPARIN SOD 40 MG/0.4 ML SYRINGE SC ONE (16:00)
[2020-09-29] MEDS ORDERED: HYDROcodone-ACET 5/325MG TAB PO PRN (16:00)
[2020-09-29] MEDS ORDERED: MYCO250C4 PO (16:10)
[2020-09-29] MEDS ORDERED: FEBU80TA3 PO (16:11)
[2020-09-29] MEDS ORDERED: AML5T PO (16:13)
[2020-09-29] MEDS ORDERED: IBUP600T28 PO (16:13)
[2020-09-29] MEDS ORDERED: CYCL5TAB PO (16:14)
[2020-09-29] MEDS ORDERED: GABA100C9 PO (16:15)
[2020-09-29] MEDS ORDERED: TACR1CAP4 PO (16:16)
[2020-09-29] MEDS ORDERED: COLC0.6T56 PO (16:17)
[2020-09-29] MEDS ORDERED: FLU01T PO (16:19)
[2020-09-29] MEDS ORDERED: LIDO5DIS21 TOP (16:20)
[2020-09-29] MEDS ORDERED: ERGO1CAP23 PO (16:21)
[2020-09-29] MEDS ORDERED: MAGN241.4 PO (16:22)
[2020-09-29] MEDS ORDERED: ZINC50TA20 PO (16:22)
[2020-09-29] MEDS ORDERED: OMEG1CAP59 PO (16:24)
[2020-09-29] MEDS ORDERED: ASPI-498 PO (16:25)
[2020-09-29] MEDS ORDERED: SODIUM POLYSTYRENE SULF 15 GM POWDER PO PRN (17:00)
[2020-09-29] MEDS: SODIUM CHLORIDE 0.9% 1,000 ML IV SCH (18:08)
[2020-09-29] MEDS: SUCRALFATE 1 GM/10 ML ORAL SUSP PO SCH ×2 (18:17→22:28)
[2020-09-29 18:24] VITALS: BP 168/106
[2020-09-29] MEDS: hydrALAZINE HCL 20 MG/ML VL IV PRN (18:37)
[2020-09-29 22:00] VITALS: BP 159/94
[2020-09-29] MEDS: GABAPENTIN 100 MG CAP PO SCH (22:28)
[2020-09-29] MEDS: MYCOPHENOLATE 500 MG TAB PO SCH (22:28)
[2020-09-30 02:26] LABS: Basophils # (auto) 0 10 ^3/uL (0-0.2); Basophils % (auto) 0.4 % (0.0-2.0); Eosinophils # (auto) 0.1 10 ^3/uL (0-0.8); Eosinophils % (auto) 3.5 % (0.0-7.0); Hematocrit 25.5 % (41.0-53.0); Hemoglobin 8.8 g/dL (13.5-17.5); Lymphocytes # (auto) 0.4 10 ^3/uL (0.4-5.4); Lymphocytes % (auto) 11.1 % (10.0-50.0); Mean Corpuscular Hemoglobin 28.3 pg (28.0-32.0); Mean Corpuscular Hgb Conc. 34.6 g/dL (32.0-36.0); Mean Corpuscular Volume 81.7 fL (80.0-100.0); Monocytes # (auto) 0.3 10 ^3/uL (0-1.3); Monocytes % (auto) 6.5 % (0.0-12.0); Neutrophils # (auto) 3.1 10 ^3/uL (1.6-8.6); Neutrophils % (auto) 78.5 % (37.0-80.0); Platelet Count (auto) 71 10^3/uL (140-450); Red Blood Cells 3.12 10^6/uL (4.5-5.90); Red Cell Distribution Width 15.7 % (11.8-14.3); White Blood Cell 3.9 10^3/uL (4.4-10.8)
[2020-09-30 02:41] LABS: Albumin 2.2 g/dL (3.4-5.0); Magnesium 1.6 mg/dL (1.6-2.6); Potassium 3.4 mmol/L (3.5-5.1)
[2020-09-30 02:44] LABS: Bilirubin, Total 0.4 mg/dL (0.2-1.0); Phosphorus 2.8 mg/dL (2.5-4.90)
[2020-09-30 02:48] LABS: INR 1.03 (0.9-1.15)
[2020-09-30 05:00] VITALS: BP 160/95
[2020-09-30] MEDS: SUCRALFATE 1 GM/10 ML ORAL SUSP PO SCH ×4 (05:50→21:26)
[2020-09-30] MEDS: GABAPENTIN 100 MG CAP PO SCH ×3 (05:50→21:27)
[2020-09-30 08:00] VITALS: BP 151/77
[2020-09-30] MEDS: SODIUM CHLORIDE 0.9% 1,000 ML IV SCH (08:40)
[2020-09-30] MEDS: MYCOPHENOLATE 500 MG TAB PO SCH ×2 (09:55→21:26)
[2020-09-30] MEDS: FLUDROCORTISONE ACETATE 0.1 MG TAB PO SCH (09:56)
[2020-09-30] MEDS: FAMOTIDINE 20 MG TAB PO SCH (09:56)
[2020-09-30] MEDS ORDERED: FAMOTIDINE 20 MG TAB PO SCH (10:00)
[2020-09-30] MEDS ORDERED: predniSONE 1 MG TAB PO SCH (10:00)
[2020-09-30] MEDS: hydrALAZINE HCL 20 MG/ML VL IV PRN (10:21)
[2020-09-30 12:00] VITALS: BP 147/84
[2020-09-30] MEDS ORDERED: LIDOCAINE 1% HCL (LOCAL ANESTH.) INJ 20ML MDV IJ ONE (12:45)
[2020-09-30 16:00] VITALS: BP 146/89
[2020-09-30] MEDS ORDERED: VANCOMYCIN PER PHARMACY 0 MG IV SCH (18:15)
[2020-09-30] MEDS: LORazepam 0.5 MG TAB PO PRN (18:20)
[2020-09-30] MEDS ORDERED: VANCOMYCIN 1GM/250ML 250 ML IV ONE (20:00)
[2020-09-30 20:06] LABS: Urine Bacteria NONE SEEN /hpf (None Seen); Urine Blood 2+ /uL (Negative); Urine Hyaline Cast FEW /lpf (0 - 2); Urine Specific Gravity 1.023 (1.001-1.035); Urine WBC 3 /hpf (0 - 3)
[2020-09-30 20:29] LABS: Protein, Urine 1566.4 mg/dL (0.0-11.9)
[2020-09-30 22:00] VITALS: BP 142/75
[2020-09-30] MEDS: PIPERACILLIN-TAZOB 2.25GM 50 ML IV SCH (23:43)
[2020-10-01] MEDS: SODIUM CHLORIDE 0.9% 1,000 ML IV SCH (01:45)
[2020-10-01 05:00] VITALS: BP 156/83
[2020-10-01] MEDS: PIPERACILLIN-TAZOB 2.25GM 50 ML IV SCH ×3 (05:52→17:41)
[2020-10-01] MEDS: hydrALAZINE HCL 20 MG/ML VL IV PRN (05:53)
[2020-10-01] MEDS: SUCRALFATE 1 GM/10 ML ORAL SUSP PO SCH ×4 (06:10→21:42)
[2020-10-01] MEDS: GABAPENTIN 100 MG CAP PO SCH ×3 (06:10→21:42)
[2020-10-01 07:57] LABS: Basophils # (auto) 0 10 ^3/uL (0-0.2); Basophils % (auto) 0.6 % (0.0-2.0); Eosinophils # (auto) 0.2 10 ^3/uL (0-0.8); Eosinophils % (auto) 4.1 % (0.0-7.0); Hematocrit 26.5 % (41.0-53.0); Hemoglobin 9.2 g/dL (13.5-17.5); Lymphocytes # (auto) 0.5 10 ^3/uL (0.4-5.4); Lymphocytes % (auto) 11.5 % (10.0-50.0); Mean Corpuscular Hemoglobin 28.2 pg (28.0-32.0); Mean Corpuscular Hgb Conc. 34.9 g/dL (32.0-36.0); Mean Corpuscular Volume 80.7 fL (80.0-100.0); Monocytes # (auto) 0.3 10 ^3/uL (0-1.3); Neutrophils # (auto) 3.4 10 ^3/uL (1.6-8.6); Neutrophils % (auto) 77.8 % (37.0-80.0); Nucleated Red Blood Cells % 0.2 %; Platelet Count (auto) 70 10^3/uL (140-450); Red Blood Cells 3.28 10^6/uL (4.5-5.90); Red Cell Distribution Width 15.7 % (11.8-14.3); White Blood Cell 4.3 10^3/uL (4.4-10.8)
[2020-10-01 08:00] VITALS: BP 156/87
[2020-10-01 08:09] LABS: Potassium 3.6 mmol/L (3.5-5.1)
[2020-10-01 08:17] LABS: Albumin 1.5 g/dL (3.4-5.0); BUN/Creatinine Ratio 12.2; Bilirubin, Total 0.4 mg/dL (0.2-1.0); Calcium 7.6 mg/dL (8.5-10.1); Magnesium 1.5 mg/dL (1.6-2.6); Phosphorus 2.8 mg/dL (2.5-4.90); Total Protein 5.2 g/dL (6.4-8.2)
[2020-10-01] MEDS ORDERED: SOD CHL 0.45% 1,000 ML IV SCH (09:30)
[2020-10-01] MEDS: FLUDROCORTISONE ACETATE 0.1 MG TAB PO SCH (10:21)
[2020-10-01] MEDS: predniSONE 5 MG TAB PO SCH (10:22)
[2020-10-01] MEDS: FAMOTIDINE 20 MG TAB PO SCH (10:22)
[2020-10-01] MEDS: amLODIPine BESYLATE 5 MG TAB PO SCH (10:22)
[2020-10-01] MEDS: MYCOPHENOLATE 500 MG TAB PO SCH ×2 (10:23→21:42)
[2020-10-01] MEDS: DOCUSATE SOD 100 MG CAP PO PRN (10:35)
[2020-10-01 12:00] VITALS: BP 148/86
[2020-10-01 12:43] LABS: Amphetamine Screen, Urine NEGATIVE (NEGATIVE); Barbiturate Scree,Urine NEGATIVE (NEGATIVE); Benzodiazephine Screen, Urine NEGATIVE (NEGATIVE); Cannabinoid Screen, Urine NEGATIVE (NEGATIVE); Cocaine Screen, Urine NEGATIVE (NEGATIVE); Opiate Scree,Urine NEGATIVE (NEGATIVE); Phencyclidine Screen, Urine NEGATIVE (NEGATIVE)
[2020-10-01 16:00] VITALS: BP 132/80
[2020-10-01] MEDS ORDERED: VANCOMYCIN 1GM/250ML 250 ML IV ONE (16:00)
[2020-10-01] MEDS: LORazepam 0.5 MG TAB PO PRN ×2 (18:34→21:43)
[2020-10-01 22:00] VITALS: BP 142/80
[2020-10-02] MEDS: PIPERACILLIN-TAZOB 2.25GM 50 ML IV SCH ×3 (00:03→11:12)
[2020-10-02 05:00] VITALS: BP 136/94
[2020-10-02] MEDS: GABAPENTIN 100 MG CAP PO SCH ×3 (06:08→21:53)
[2020-10-02] MEDS: SUCRALFATE 1 GM/10 ML ORAL SUSP PO SCH ×4 (06:38→21:52)
[2020-10-02 08:00] VITALS: BP_SYST 132; BP_DIAS 70; BP_DIAS 87
[2020-10-02 08:19] LABS: Potassium 3.6 mmol/L (3.5-5.1)
[2020-10-02 08:24] LABS: BUN/Creatinine Ratio 10.2; Calcium 7.4 mg/dL (8.5-10.1)
[2020-10-02 10:00] VITALS: BP 132/87
[2020-10-02] MEDS: FAMOTIDINE 20 MG TAB PO SCH (11:10)
[2020-10-02] MEDS: DOCUSATE SOD 100 MG CAP PO PRN (11:10)
[2020-10-02] MEDS: predniSONE 5 MG TAB PO SCH (11:10)
[2020-10-02] MEDS: amLODIPine BESYLATE 5 MG TAB PO SCH (11:11)
[2020-10-02] MEDS: MYCOPHENOLATE 500 MG TAB PO SCH ×2 (11:11→21:52)
[2020-10-02] MEDS: FLUDROCORTISONE ACETATE 0.1 MG TAB PO SCH (11:12)
[2020-10-02 12:00] VITALS: BP 135/85
[2020-10-02] MEDS ORDERED: predniSONE 20 MG TAB PO ONE (15:00)
[2020-10-02 15:43] LABS: Free T3 2.43 pg/mL (2.3-4.2); Free T4 (Free Thyroxine) 0.95 ng/dL (0.89-1.76)
[2020-10-02 16:00] VITALS: BP 149/84
[2020-10-02 22:00] VITALS: BP 142/92
[2020-10-03 05:00] VITALS: BP 156/90
[2020-10-03 06:13] LABS: Basophils # (auto) 0 10 ^3/uL (0-0.2); Basophils % (auto) 0.3 % (0.0-2.0); Eosinophils # (auto) 0 10 ^3/uL (0-0.8); Eosinophils % (auto) 0.1 % (0.0-7.0); Hemoglobin 9.5 g/dL (13.5-17.5); Lymphocytes # (auto) 0.4 10 ^3/uL (0.4-5.4); Lymphocytes % (auto) 8.8 % (10.0-50.0); Mean Corpuscular Hemoglobin 28.2 pg (28.0-32.0); Mean Corpuscular Hgb Conc. 35.3 g/dL (32.0-36.0); Mean Corpuscular Volume 79.9 fL (80.0-100.0); Monocytes # (auto) 0.1 10 ^3/uL (0-1.3); Monocytes % (auto) 2.3 % (0.0-12.0); Neutrophils # (auto) 3.6 10 ^3/uL (1.6-8.6); Neutrophils % (auto) 88.5 % (37.0-80.0); Nucleated Red Blood Cells % 0.2 %; Platelet Count (auto) 86 10^3/uL (140-450); Red Blood Cells 3.37 10^6/uL (4.5-5.90); Red Cell Distribution Width 15.2 % (11.8-14.3); White Blood Cell 4.1 10^3/uL (4.4-10.8)
[2020-10-03 06:29] LABS: BUN/Creatinine Ratio 11.4; Calcium 7.7 mg/dL (8.5-10.1); Potassium 3.4 mmol/L (3.5-5.1)
[2020-10-03] MEDS: SUCRALFATE 1 GM/10 ML ORAL SUSP PO SCH ×2 (06:39→11:30)
[2020-10-03] MEDS: GABAPENTIN 100 MG CAP PO SCH (06:39)
[2020-10-03 08:56] VITALS: BP 132/96
[2020-10-03 09:06] LABS: Immunoglobulin G, Serum 481 mg/dL (603-1613)
[2020-10-03] MEDS ORDERED: PANT40TA2 PO (09:34)
[2020-10-03] MEDS ORDERED: METH4PAK PO (09:34)
[2020-10-03] MEDS ORDERED: POTASSIUM CHL 10 Meq TABLET PO ONE (09:45)
[2020-10-03] MEDS ORDERED: predniSONE 20 MG TAB PO SCH (10:00)
[2020-10-03] MEDS: FLUDROCORTISONE ACETATE 0.1 MG TAB PO SCH (10:00)
[2020-10-03] MEDS ORDERED: METOPROLOL SUCCINATE XL 50 MG TAB PO SCH (10:00)
[2020-10-03] MEDS ORDERED: AML5T PO (10:04)
[2020-10-03] MEDS ORDERED: METO25TA5 PO (10:04)
[2020-10-03] MEDS: MYCOPHENOLATE 500 MG TAB PO SCH (10:12)
[2020-10-03] MEDS: FAMOTIDINE 20 MG TAB PO SCH (10:13)
[2020-10-03] MEDS: amLODIPine BESYLATE 5 MG TAB PO SCH (10:13)
[2020-10-03] MEDS: hydrALAZINE HCL 20 MG/ML VL IV PRN (12:51)
[2020-10-03 13:08] VITALS: BP 155/91
== END 2020-10-03 14:15 | disposition home or self-care (01) | DRG 351 ==
LOC: ER 10:59 → TELE 11:00 → TELE-EAST 18:10
PROVIDERS: ADMIT Hospitalist; ATTEND Internal Medicine
PROC: 0S9C3ZZ Drainage of Right Knee Joint, Percutaneous Approach (ICD-10-PCS; principal; 2020-09-30)
DX: M25.461 Effusion, right knee (principal); E43 Unspecified severe protein-calorie malnutrition; N17.0 Acute kidney failure with tubular necrosis; J90 Pleural effusion, not elsewhere classified; D84.821 Immunodeficiency due to drugs; Z94.4 Liver transplant status; D61.818 Other pancytopenia; E87.0 Hyperosmolality and hypernatremia; E87.8 Other disorders of electrolyte and fluid balance, not elsewhere classified; E11.22 Type 2 diabetes mellitus with diabetic chronic kidney disease; E88.09 Other disorders of plasma-protein metabolism, not elsewhere classified; N18.32 Chronic kidney disease, stage 3b; M10.9 Gout, unspecified; K74.60 Unspecified cirrhosis of liver; Z20.822 Contact with and (suspected) exposure to COVID-19; B19.20 Unspecified viral hepatitis C without hepatic coma; D63.8 Anemia in other chronic diseases classified elsewhere; I16.9 Hypertensive crisis, unspecified; M11.261 Other chondrocalcinosis, right knee; E66.9 Obesity, unspecified; Z68.33 Body mass index [BMI] 33.0-33.9, adult; E03.9 Hypothyroidism, unspecified; E78.5 Hyperlipidemia, unspecified; I12.9 Hypertensive chronic kidney disease with stage 1 through stage 4 chronic kidney disease, or unspecified chronic kidney disease; Z79.4 Long term (current) use of insulin; Z79.52 Long term (current) use of systemic steroids; Z79.82 Long term (current) use of aspirin; Z79.899 Other long term (current) drug therapy; Z83.3 Family history of diabetes mellitus
CPT/HCPCS: 36415; 71045; 71250; 73562; 76775; 78582; 80048; 80053; 80061; 80202; 80307; 81001; 82570; 82728; 82784; 83036; 83735; 83880; 84100; 84156; 84300; 84439; 84443; 84481; 84484; 84550; 85025; 85379; 85610; 86141; 86334; 86335; 87040; 87086; 87205; 87426; 89051; 89060; 93005; 93306; 96372; 96374; 96375; G0378; J2405; J2543; J7517

== ENCOUNTER → 2020-10-09 | Outpatient (CLI) | payer MEDICAID ==
[~2020-10-09] MED LIST changes: +AML5T PO; -ASPI-543 PO; -COLC0.6T56 PO; -DOCU100C10 PO; -ERGO50003 PO; -FAMO20TA10 PO; -FEBU40TA PO; +FEBU80TA3 PO; -FLU01T GT; -FLU01T PO; -GABA300C10 PO; -HYDR-4833 PO; -INSUINJ37 SC; -LINE1TAB5 PO; -MAGN241.4 PO; -MAGN400T26 PO; +METH4PAK PO; +METO25TA5 PO; -MYCO250C PO; +MYCO250C4 PO; -MYCO500T3 PO; +OMEG1CAP59 PO; -PATI1POW PO; -PRE1T PO; -PRED20TA2 PO; -SODIPOW32 OR; -SPECTAB OR; -SUCR1SUS10 PO; +TACR1CAP4 PO; -TACR1GRA PO; -TACR1TAB2 PO; -ZINC100T5 PO; +ZINC50TA20 PO; -[UNRECOGNIZED DRUG - CODE] PO
[2020-10-09 11:42] LABS: BUN/Creatinine Ratio 16.6
== END | disposition home or self-care (01) ==
LOC: LAB 10:10
PROVIDERS: ATTEND Internal Medicine
DX: I12.9 Hypertensive chronic kidney disease with stage 1 through stage 4 chronic kidney disease, or unspecified chronic kidney disease (principal); E11.22 Type 2 diabetes mellitus with diabetic chronic kidney disease; N18.30 Chronic kidney disease, stage 3 unspecified
CPT/HCPCS: 36415; 80048

== ENCOUNTER → 2020-11-02 | Outpatient (CLI) | payer MEDICAID | END | disposition home or self-care (01) | LOC: LAB 16:02 | PROVIDERS: ATTEND Nurse Practitioner Family | DX: Z20.822 Contact with and (suspected) exposure to COVID-19 (principal) | CPT/HCPCS: 36415; C9803; U0003 ==

== ENCOUNTER → 2020-12-21 | Outpatient (CLI) | payer MEDICAID ==
[2020-12-21 11:02] LABS: Basophils # (auto) 0 10 ^3/uL (0-0.2); Basophils % (auto) 0.6 % (0.0-2.0); Eosinophils # (auto) 0.2 10 ^3/uL (0-0.8); Eosinophils % (auto) 4.3 % (0.0-7.0); Hematocrit 30.8 % (41.0-53.0); Hemoglobin 10.1 g/dL (13.5-17.5); Lymphocytes # (auto) 0.6 10 ^3/uL (0.4-5.4); Lymphocytes % (auto) 10.9 % (10.0-50.0); Mean Corpuscular Hgb Conc. 32.8 g/dL (32.0-36.0); Mean Corpuscular Volume 85.4 fL (80.0-100.0); Monocytes # (auto) 0.3 10 ^3/uL (0-1.3); Monocytes % (auto) 4.5 % (0.0-12.0); Neutrophils # (auto) 4.6 10 ^3/uL (1.6-8.6); Neutrophils % (auto) 79.7 % (37.0-80.0); Nucleated Red Blood Cells % 0.1 %; Platelet Count (auto) 88 10^3/uL (140-450); Red Cell Distribution Width 16.4 % (11.8-14.3); White Blood Cell 5.8 10^3/uL (4.4-10.8)
[2020-12-21 11:48] LABS: Potassium 5.2 mmol/L (3.5-5.1)
[2020-12-21 11:56] LABS: Albumin 3.1 g/dL (3.4-5.0); BUN/Creatinine Ratio 13.2; Bilirubin, Total 0.4 mg/dL (0.2-1.0); Calcium 8.1 mg/dL (8.5-10.1); Total Protein 6.4 g/dL (6.4-8.2)
== END | disposition home or self-care (01) ==
LOC: LAB 10:25
PROVIDERS: ATTEND Student in an Organized Health Care Education/Training Program
DX: I12.9 Hypertensive chronic kidney disease with stage 1 through stage 4 chronic kidney disease, or unspecified chronic kidney disease (principal); E11.22 Type 2 diabetes mellitus with diabetic chronic kidney disease; N18.32 Chronic kidney disease, stage 3b; N39.0 Urinary tract infection, site not specified
CPT/HCPCS: 36415; 80053; 80061; 82043; 83036; 84153; 84443; 85025; 87086

== ENCOUNTER 2021-03-16 11:13 | Emergency (ER) | payer MEDICAID ==
[~2021-03-16] VITALS: Ht 175.3 cm; Wt 90.7 kg
[2021-03-16 11:24] VITALS: BP 161/91
== END 2021-03-16 13:02 | disposition home or self-care (01) ==
LOC: ER 11:13
DX: M79.10 Myalgia, unspecified site (principal); R51.9 Headache, unspecified; I12.9 Hypertensive chronic kidney disease with stage 1 through stage 4 chronic kidney disease, or unspecified chronic kidney disease; E11.22 Type 2 diabetes mellitus with diabetic chronic kidney disease; N18.9 Chronic kidney disease, unspecified; E78.5 Hyperlipidemia, unspecified; M10.9 Gout, unspecified; Z79.82 Long term (current) use of aspirin; Z79.899 Other long term (current) drug therapy

== ENCOUNTER 2021-05-24 09:49 | Inpatient (IN) | payer MEDICAID ==
[~2021-05-24] VITALS: Ht 175.3 cm; Wt 101.0 kg
[2021-05-24 10:54] LABS: Basophils # (auto) 0.1 10 ^3/uL (0-0.2); Basophils % (auto) 1.5 % (0.0-2.0); Eosinophils # (auto) 0.2 10 ^3/uL (0-0.8); Eosinophils % (auto) 4.5 % (0.0-7.0); Hematocrit 32.1 % (41.0-53.0); Hemoglobin 10.2 g/dL (13.5-17.5); Lymphocytes # (auto) 0.4 10 ^3/uL (0.4-5.4); Lymphocytes % (auto) 10.2 % (10.0-50.0); Mean Corpuscular Hemoglobin 28.4 pg (28.0-32.0); Mean Corpuscular Hgb Conc. 31.9 g/dL (32.0-36.0); Monocytes # (auto) 0.2 10 ^3/uL (0-1.3); Monocytes % (auto) 5.6 % (0.0-12.0); Neutrophils # (auto) 3.2 10 ^3/uL (1.6-8.6); Neutrophils % (auto) 78.2 % (37.0-80.0); Nucleated Red Blood Cells % 0.1 %; Red Blood Cells 3.61 10^6/uL (4.5-5.90); Red Cell Distribution Width 15.7 % (11.8-14.3); White Blood Cell 4.1 10^3/uL (4.4-10.8)
[2021-05-24 11:12] LABS: Albumin 2.5 g/dL (3.4-5.0); Calcium 7.1 mg/dL (8.5-10.1)
[2021-05-24 11:15] LABS: BUN/Creatinine Ratio 15.6; Bilirubin, Total 0.2 mg/dL (0.2-1.0); Total Protein 5.9 g/dL (6.4-8.2)
[2021-05-24] MEDS ORDERED: SODIUM ZIRCONIUM CYCL 10 GM PAK PO ONE (11:30)
[2021-05-24] MEDS ORDERED: ALBUTEROL SULF 2.5 MG/0.5ML(0.5%) NEB SOLN NEB ONE (11:30)
[2021-05-24] MEDS ORDERED: DEXTROSE (50%) 50ML SYRG IV ONE (11:30)
[2021-05-24] MEDS ORDERED: InsuLIN REG 1unit/0.01ml Soln (100units/ml) IV ONE (11:30)
[2021-05-24] MEDS ORDERED: SODIUM BICARBONATE 8.4% INJ 50ML SYRINGE IV ONE (11:30)
[2021-05-24] MEDS ORDERED: FUROSEMIDE 20 MG/2 ML VIAL IV ONE (11:30)
[2021-05-24] MEDS ORDERED: CALCIUM GLUC 1,000mg/50ml-NS 50 ML IV ONE (11:30)
[2021-05-24] MEDS ORDERED: NITROGLYCERIN 0.4 MG SL TAB SL PRN (18:00)
[2021-05-24] MEDS ORDERED: LORazepam 0.5 MG TAB PO PRN (18:00)
[2021-05-24] MEDS ORDERED: MORPHINE SULFATE INJECTION 2 MG/ML SYRG IV PRN ×2 (18:00)
[2021-05-24] MEDS ORDERED: SODIUM CHLORIDE 0.9% 1,000 ML IV ONE (18:00)
[2021-05-24] MEDS ORDERED: DOCUSATE CALCIUM 240 MG CAP PO PRN (18:00)
[2021-05-24] MEDS ORDERED: DEXTROSE (50%) 50ML SYRG IV PRN (18:00)
[2021-05-24] MEDS ORDERED: ACETAMINOPHEN 325 MG TAB PO PRN (18:00)
[2021-05-24] MEDS ORDERED: TACROLIMUS 1 MG CAP PO SCH (18:38)
[2021-05-24 20:05] VITALS: BP 144/84
[2021-05-24 21:07] LABS: BUN/Creatinine Ratio 15.6; Calcium 7.1 mg/dL (8.5-10.1); Potassium 5.5 mmol/L (3.5-5.1)
[2021-05-24] MEDS: MYCOPHENOLATE 250 MG CAP PO SCH (21:41)
[2021-05-24] MEDS: InsuLIN REG 1unit/0.01ml Soln (100units/ml) SC SCH (21:47)
[2021-05-24] MEDS: ACCU-CHEK COMFORT CURVE STRIP VI SCH (21:48)
[2021-05-24 22:00] VITALS: BP 135/76
[2021-05-25 05:00] VITALS: BP 141/89
[2021-05-25 05:31] LABS: Basophils # (auto) 0 10 ^3/uL (0-0.2); Basophils % (auto) 0.9 % (0.0-2.0); Hemoglobin 9.4 g/dL (13.5-17.5); Lymphocytes # (auto) 0.4 10 ^3/uL (0.4-5.4); Mean Corpuscular Hemoglobin 28.6 pg (28.0-32.0); Monocytes # (auto) 0.2 10 ^3/uL (0-1.3); Neutrophils # (auto) 2.3 10 ^3/uL (1.6-8.6); Red Blood Cells 3.27 10^6/uL (4.5-5.90); White Blood Cell 3.1 10^3/uL (4.4-10.8)
[2021-05-25 05:31] LABS: Urine Bacteria NONE SEEN /hpf (None Seen); Urine Blood 1+ /uL (Negative); Urine Specific Gravity 1.011 (1.001-1.035); Urine WBC 1 /hpf (0 - 3)
[2021-05-25] MEDS: InsuLIN REG 1unit/0.01ml Soln (100units/ml) SC SCH ×6 (05:32→22:00)
[2021-05-25 05:33] LABS: Eosinophils # (auto) 0.2 10 ^3/uL (0-0.8); Eosinophils % (auto) 5.1 % (0.0-7.0); Hematocrit 29.1 % (41.0-53.0); Lymphocytes % (auto) 13.2 % (10.0-50.0); Mean Corpuscular Hgb Conc. 32.2 g/dL (32.0-36.0); Mean Corpuscular Volume 88.9 fL (80.0-100.0); Monocytes % (auto) 5.6 % (0.0-12.0); Neutrophils % (auto) 75.2 % (37.0-80.0)
[2021-05-25] MEDS: ACCU-CHEK COMFORT CURVE STRIP VI SCH ×6 (05:33→22:23)
[2021-05-25 05:42] LABS: INR 1.07 (0.9-1.15)
[2021-05-25 05:43] LABS: Albumin 2.3 g/dL (3.4-5.0); Calcium 6.8 mg/dL (8.5-10.1)
[2021-05-25 05:48] LABS: BUN/Creatinine Ratio 16.1; Bilirubin, Total 0.2 mg/dL (0.2-1.0); Total Protein 5.2 g/dL (6.4-8.2)
[2021-05-25 06:17] LABS: Potassium 6.7 mmol/L (3.5-5.1)
[2021-05-25] MEDS ORDERED: DEXTROSE (50%) 50ML SYRG IV ONE (07:00)
[2021-05-25] MEDS ORDERED: SODIUM ZIRCONIUM CYCL 10 GM PAK PO ONE ×2 (07:00→10:30)
[2021-05-25] MEDS ORDERED: FUROSEMIDE 20 MG/2 ML VIAL IV ONE (07:00)
[2021-05-25] MEDS ORDERED: CALCIUM GLUC 1,000mg/50ml-NS 50 ML IV ONE ×2 (07:00→10:30)
[2021-05-25] MEDS ORDERED: TACROLIMUS 1 MG CAP PO SCH (07:00)
[2021-05-25] MEDS ORDERED: SODIUM BICARBONATE 8.4 % INJ 50ML VIAL IV ONE (07:00)
[2021-05-25] MEDS: SODIUM BICARBONATE 8.4 % INJ 50ML VIAL IV ONE ×2 (07:59→08:01)
[2021-05-25 08:00] VITALS: BP 151/90
[2021-05-25] MEDS: MYCOPHENOLATE 250 MG CAP PO SCH ×2 (08:56→22:22)
[2021-05-25] MEDS: PANTOPRAZOLE 40 MG TAB PO SCH (08:56)
[2021-05-25 09:48] VITALS: BP 151/90
[2021-05-25] MEDS: LABETALOL HCL 5 MG/ML 4ML SYRINGE IV PRN ×2 (09:50→14:29)
[2021-05-25] MEDS ORDERED: ENOXAPARIN SOD 30 MG/0.3 ML SYRINGE SC SCH (10:00)
[2021-05-25] MEDS ORDERED: SODIUM BICARBONATE 8.4% INJ 50ML SYRINGE IV ONE (10:30)
[2021-05-25] MEDS ORDERED: LOS25T PO (11:21)
[2021-05-25] MEDS ORDERED: SODI650T PO (11:21)
[2021-05-25] MEDS ORDERED: HYDR50TA15 PO (11:21)
[2021-05-25] MEDS ORDERED: FLUD0.1T2 PO (11:21)
[2021-05-25] MEDS ORDERED: CALC0.5C PO (11:21)
[2021-05-25] MEDS ORDERED: [UNRECOGNIZED DRUG - CODE] PO (11:21)
[2021-05-25] MEDS ORDERED: GAB100C PO (11:21)
[2021-05-25 12:07] LABS: BUN/Creatinine Ratio 15.3; Calcium 6.8 mg/dL (8.5-10.1); Potassium 5.5 mmol/L (3.5-5.1)
[2021-05-25] MEDS: SODIUM BICARBONATE 50ML VIAL 150 ML in D5W 5% 1,000 ML IV SCH ×2 (14:01→21:45)
[2021-05-25 14:04] VITALS: BP 158/97
[2021-05-25] MEDS: SODIUM ZIRCONIUM CYCL 10 GM PAK PO SCH ×2 (14:28→22:22)
[2021-05-25] MEDS ORDERED: hydrALAZINE HCL 20 MG/ML VL IV PRN (16:00)
[2021-05-25 16:35] VITALS: BP 161/98
[2021-05-25 22:51] VITALS: BP 147/83
[2021-05-26] MEDS: SODIUM BICARBONATE 50ML VIAL 150 ML in D5W 5% 1,000 ML IV SCH ×2 (01:05→18:06)
[2021-05-26 05:16] VITALS: BP 146/90
[2021-05-26 05:18] LABS: Basophils # (auto) 0 10 ^3/uL (0-0.2); Eosinophils # (auto) 0.2 10 ^3/uL (0-0.8); Lymphocytes # (auto) 0.4 10 ^3/uL (0.4-5.4); Mean Corpuscular Hgb Conc. 33.1 g/dL (32.0-36.0); Monocytes # (auto) 0.2 10 ^3/uL (0-1.3); Neutrophils # (auto) 2.3 10 ^3/uL (1.6-8.6); White Blood Cell 3.1 10^3/uL (4.4-10.8)
[2021-05-26 05:21] LABS: Basophils % (auto) 0.6 % (0.0-2.0); Eosinophils % (auto) 6.7 % (0.0-7.0); Hematocrit 27.6 % (41.0-53.0); Hemoglobin 9.1 g/dL (13.5-17.5); Lymphocytes % (auto) 13.8 % (10.0-50.0); Mean Corpuscular Hemoglobin 28.7 pg (28.0-32.0); Mean Corpuscular Volume 86.8 fL (80.0-100.0); Monocytes % (auto) 5.5 % (0.0-12.0); Neutrophils % (auto) 73.4 % (37.0-80.0); Nucleated Red Blood Cells % 0.1 %; Red Blood Cells 3.18 10^6/uL (4.5-5.90); Red Cell Distribution Width 15.5 % (11.8-14.3)
[2021-05-26 05:51] LABS: Potassium 4.5 mmol/L (3.5-5.1)
[2021-05-26 05:58] LABS: BUN/Creatinine Ratio 14.8; Calcium 6.4 mg/dL (8.5-10.1)
[2021-05-26] MEDS: SODIUM ZIRCONIUM CYCL 10 GM PAK PO SCH (06:00)
[2021-05-26] MEDS: ACCU-CHEK COMFORT CURVE STRIP VI SCH ×4 (06:40→21:17)
[2021-05-26] MEDS: InsuLIN REG 1unit/0.01ml Soln (100units/ml) SC SCH ×4 (06:40→21:11)
[2021-05-26 09:00] VITALS: BP 146/91
[2021-05-26] MEDS: PANTOPRAZOLE 40 MG TAB PO SCH (10:14)
[2021-05-26] MEDS: MYCOPHENOLATE 250 MG CAP PO SCH ×2 (10:15→21:17)
[2021-05-26 13:00] VITALS: BP 145/63
[2021-05-26 14:36] LABS: Protein, Urine 399.4 mg/dL (0.0-11.9)
[2021-05-26 17:00] VITALS: BP 149/85
[2021-05-26 21:52] VITALS: BP 156/86
[2021-05-26 22:10] VITALS: BP 142/76
[2021-05-27] MEDS: SODIUM BICARBONATE 50ML VIAL 150 ML in D5W 5% 1,000 ML IV SCH (04:14)
[2021-05-27 05:00] VITALS: BP 146/89
[2021-05-27 05:29] LABS: Basophils # (auto) 0 10 ^3/uL (0-0.2); Basophils % (auto) 0.7 % (0.0-2.0); Eosinophils # (auto) 0.2 10 ^3/uL (0-0.8); Eosinophils % (auto) 6.8 % (0.0-7.0); Hematocrit 26.9 % (41.0-53.0); Lymphocytes # (auto) 0.5 10 ^3/uL (0.4-5.4); Lymphocytes % (auto) 15.4 % (10.0-50.0); Mean Corpuscular Hemoglobin 28.9 pg (28.0-32.0); Mean Corpuscular Hgb Conc. 33.5 g/dL (32.0-36.0); Mean Corpuscular Volume 86.3 fL (80.0-100.0); Monocytes # (auto) 0.2 10 ^3/uL (0-1.3); Monocytes % (auto) 5.7 % (0.0-12.0); Neutrophils # (auto) 2.2 10 ^3/uL (1.6-8.6); Neutrophils % (auto) 71.4 % (37.0-80.0); Red Blood Cells 3.11 10^6/uL (4.5-5.90); Red Cell Distribution Width 15.3 % (11.8-14.3)
[2021-05-27 05:41] LABS: Calcium 6.1 mg/dL (8.5-10.1); Potassium 4.2 mmol/L (3.5-5.1)
[2021-05-27 05:44] LABS: BUN/Creatinine Ratio 13.2
[2021-05-27] MEDS: InsuLIN REG 1unit/0.01ml Soln (100units/ml) SC SCH ×3 (06:33→17:00)
[2021-05-27] MEDS: ACCU-CHEK COMFORT CURVE STRIP VI SCH ×3 (06:34→17:00)
[2021-05-27] MEDS: ONDANSETRON HCL 4 MG/2 ML VIAL IV PRN ×2 (07:49→14:38)
[2021-05-27 09:00] VITALS: BP 151/92
[2021-05-27] MEDS: PANTOPRAZOLE 40 MG TAB PO SCH (09:08)
[2021-05-27] MEDS: LABETALOL HCL 5 MG/ML 4ML SYRINGE IV PRN ×2 (09:09→13:06)
[2021-05-27] MEDS: MYCOPHENOLATE 250 MG CAP PO SCH (09:09)
[2021-05-27 13:00] VITALS: BP 158/93
[2021-05-27] MEDS ORDERED: amLODIPine BESYLATE 5 MG TAB PO ONE (13:30)
[2021-05-27 17:00] VITALS: BP 154/84
[2021-05-28] MEDS ORDERED: amLODIPine BESYLATE 5 MG TAB PO SCH (10:00)
== END 2021-05-27 18:45 | disposition short-term general hospital (02) | DRG 469 ==
LOC: ER 09:49 → TELE 17:54 → TELE-CENTR 19:20
PROVIDERS: ADMIT Family Medicine; ATTEND Internal Medicine Pulmonary Disease
DX: N17.9 Acute kidney failure, unspecified (principal); E11.22 Type 2 diabetes mellitus with diabetic chronic kidney disease; E83.51 Hypocalcemia; Z94.4 Liver transplant status; D64.9 Anemia, unspecified; E78.5 Hyperlipidemia, unspecified; E87.5 Hyperkalemia; N18.4 Chronic kidney disease, stage 4 (severe); I12.9 Hypertensive chronic kidney disease with stage 1 through stage 4 chronic kidney disease, or unspecified chronic kidney disease; T45.1X5A Adverse effect of antineoplastic and immunosuppressive drugs, initial encounter; K21.9 Gastro-esophageal reflux disease without esophagitis; Z20.822 Contact with and (suspected) exposure to COVID-19; Z68.32 Body mass index [BMI] 32.0-32.9, adult; Z79.4 Long term (current) use of insulin; Z83.3 Family history of diabetes mellitus; Y92.89 Other specified places as the place of occurrence of the external cause
CPT/HCPCS: 36415; 70450; 76775; 80048; 80053; 80197; 81001; 82542; 82570; 82962; 83036; 84132; 84156; 84300; 84443; 84550; 85025; 85610; 87426; 93005; 94644; 96365; 96375; 99291; G0378; J1815; J2405; J3490; J7507; J7517

== ENCOUNTER → 2021-06-11 | Outpatient (CLI) | payer MEDICAID ==
[~2021-06-11] MED LIST changes: +CALC0.5C PO; -ERGO1CAP23 PO; +FLUD0.1T2 PO; +GAB100C PO; -GABA100C9 PO; +HYDR50TA15 PO; +LOS25T PO; -METH4PAK PO; -METO25TA5 PO; -OMEG1CAP59 PO; +SODI650T PO; -ZINC50TA20 PO; +[UNRECOGNIZED DRUG - CODE] PO
[2021-06-11 11:27] LABS: Basophils # (auto) 0 10 ^3/uL (0-0.2); Eosinophils # (auto) 0.3 10 ^3/uL (0-0.8); Eosinophils % (auto) 7.2 % (0.0-7.0); Hematocrit 28.1 % (41.0-53.0); Hemoglobin 9.3 g/dL (13.5-17.5); Lymphocytes # (auto) 0.6 10 ^3/uL (0.4-5.4); Lymphocytes % (auto) 14.9 % (10.0-50.0); Mean Corpuscular Hemoglobin 28.4 pg (28.0-32.0); Mean Corpuscular Hgb Conc. 33.1 g/dL (32.0-36.0); Mean Corpuscular Volume 85.7 fL (80.0-100.0); Monocytes # (auto) 0.2 10 ^3/uL (0-1.3); Monocytes % (auto) 5.9 % (0.0-12.0); Neutrophils # (auto) 2.8 10 ^3/uL (1.6-8.6); Nucleated Red Blood Cells % 0.3 %; Red Blood Cells 3.28 10^6/uL (4.5-5.90); Red Cell Distribution Width 14.7 % (11.8-14.3); White Blood Cell 3.9 10^3/uL (4.4-10.8)
[2021-06-11 11:29] LABS: Urine Bacteria FEW /hpf (None Seen); Urine Blood 2+ /uL (Negative); Urine Specific Gravity 1.013 (1.001-1.035); Urine Sperm PRESENT /hpf (None Seen); Urine WBC 1 /hpf (0 - 3)
[2021-06-11 12:22] LABS: Potassium 5.2 mmol/L (3.5-5.1)
[2021-06-11 12:23] LABS: Albumin 2.8 g/dL (3.4-5.0); BUN/Creatinine Ratio 11.5; Bilirubin, Total 0.3 mg/dL (0.2-1.0); Calcium 6.8 mg/dL (8.5-10.1); Total Protein 5.9 g/dL (6.4-8.2)
== END | disposition home or self-care (01) ==
LOC: LAB 11:00
PROVIDERS: ATTEND Student in an Organized Health Care Education/Training Program
DX: E11.9 Type 2 diabetes mellitus without complications (principal); I10 Essential (primary) hypertension; E55.9 Vitamin D deficiency, unspecified
CPT/HCPCS: 36415; 80053; 80061; 81001; 82043; 82306; 83036; 84443; 85025

== ENCOUNTER 2021-06-15 08:02 | Emergency (ER) | payer MEDICAID ==
[~2021-06-15] VITALS: Ht 175.3 cm; Wt 90.7 kg
[2021-06-15 08:52] LABS: Basophils # (auto) 0 10 ^3/uL (0-0.2); Basophils % (auto) 0.8 % (0.0-2.0); Eosinophils # (auto) 0.3 10 ^3/uL (0-0.8); Hematocrit 26.7 % (41.0-53.0); Hemoglobin 8.8 g/dL (13.5-17.5); Lymphocytes # (auto) 0.6 10 ^3/uL (0.4-5.4); Mean Corpuscular Hemoglobin 28.1 pg (28.0-32.0); Mean Corpuscular Volume 84.9 fL (80.0-100.0); Monocytes # (auto) 0.2 10 ^3/uL (0-1.3); Monocytes % (auto) 5.4 % (0.0-12.0); Neutrophils # (auto) 2.8 10 ^3/uL (1.6-8.6); Neutrophils % (auto) 71.8 % (37.0-80.0); Nucleated Red Blood Cells % 0.1 %; Red Blood Cells 3.14 10^6/uL (4.5-5.90); Red Cell Distribution Width 14.5 % (11.8-14.3)
[2021-06-15 08:55] LABS: Urine Bacteria FEW /hpf (None Seen); Urine Blood 2+ /uL (Negative); Urine Hyaline Cast FEW /lpf (0 - 2); Urine Specific Gravity 1.015 (1.001-1.035); Urine WBC 4 /hpf (0 - 3)
[2021-06-15 09:10] LABS: Albumin 2.6 g/dL (3.4-5.0); Calcium 6.8 mg/dL (8.5-10.1); Potassium 5.3 mmol/L (3.5-5.1)
[2021-06-15 09:15] LABS: BUN/Creatinine Ratio 9.5; Bilirubin, Total 0.3 mg/dL (0.2-1.0); Total Protein 6.1 g/dL (6.4-8.2)
[2021-06-15] MEDS ORDERED: DEXTROSE (50%) 50ML SYRG IV ONE (11:30)
[2021-06-15] MEDS ORDERED: InsuLIN REG 1unit/0.01ml Soln (100units/ml) IV ONE (11:30)
[2021-06-15] MEDS ORDERED: SODIUM BICARBONATE 8.4% INJ 50ML SYRINGE IV ONE (11:30)
[2021-06-15] MEDS ORDERED: FUROSEMIDE 20 MG/2 ML VIAL IV ONE (11:30)
[2021-06-15] MEDS ORDERED: ALBUTEROL SULF 2.5 MG/0.5ML(0.5%) NEB SOLN NEB ONE (11:30)
[2021-06-15] MEDS ORDERED: CALCIUM GLUC 1,000mg/50ml-NS 50 ML IV ONE (11:30)
[2021-06-15] MEDS ORDERED: SODIUM ZIRCONIUM CYCL 10 GM PAK PO ONE (11:30)
[2021-06-15 13:17] VITALS: BP 148/84
== END 2021-06-15 15:16 | disposition home or self-care (01) ==
LOC: ER 08:02
DX: I12.9 Hypertensive chronic kidney disease with stage 1 through stage 4 chronic kidney disease, or unspecified chronic kidney disease (principal); E11.22 Type 2 diabetes mellitus with diabetic chronic kidney disease; N18.9 Chronic kidney disease, unspecified; D64.9 Anemia, unspecified; M10.9 Gout, unspecified; Z79.899 Other long term (current) drug therapy; Z20.822 Contact with and (suspected) exposure to COVID-19
CPT/HCPCS: 36415; 70450; 71045; 80053; 81001; 84132; 84484; 85025; 87426; 93005; 94640; 96365; 96375; 99285; J0610; J1815; J1940; J7042

== ENCOUNTER → 2021-06-25 | Outpatient (CLI) | payer MEDICAID | END | disposition home or self-care (01) | LOC: LAB 11:00 | PROVIDERS: ATTEND Physician Assistant | DX: Z11.52 Encounter for screening for COVID-19 (principal); Z20.822 Contact with and (suspected) exposure to COVID-19 | CPT/HCPCS: C9803; U0003 ==

== ENCOUNTER 2021-08-03 09:30 | Inpatient (IN) | payer MEDICAID ==
[~2021-08-03] VITALS: Ht 172.7 cm; Wt 96.8 kg
[2021-08-03 10:14] LABS: Basophils # (auto) 0 10 ^3/uL (0-0.2); Eosinophils # (auto) 0.2 10 ^3/uL (0-0.8); Monocytes # (auto) 0.2 10 ^3/uL (0-1.3); Neutrophils # (auto) 3.1 10 ^3/uL (1.6-8.6)
[2021-08-03 10:15] LABS: Basophils % (auto) 0.5 % (0.0-2.0); Eosinophils % (auto) 5.1 % (0.0-7.0); Hematocrit 23.9 % (41.0-53.0); Hemoglobin 7.7 g/dL (13.5-17.5); Lymphocytes # (auto) 0.5 10 ^3/uL (0.4-5.4); Lymphocytes % (auto) 13.5 % (10.0-50.0); Mean Corpuscular Hemoglobin 27.9 pg (28.0-32.0); Mean Corpuscular Hgb Conc. 32.4 g/dL (32.0-36.0); Monocytes % (auto) 4.8 % (0.0-12.0); Neutrophils % (auto) 76.1 % (37.0-80.0); Nucleated Red Blood Cells % 0.1 %; Red Blood Cells 2.78 10^6/uL (4.5-5.90); Red Cell Distribution Width 15.2 % (11.8-14.3)
[2021-08-03 10:22] LABS: Urine Bacteria FEW /hpf (None Seen); Urine Blood 2+ /uL (Negative); Urine Specific Gravity 1.016 (1.001-1.035); Urine WBC 3 /hpf (0 - 3)
[2021-08-03 10:45] LABS: Albumin 2.7 g/dL (3.4-5.0); Calcium 6.3 mg/dL (8.5-10.1)
[2021-08-03 10:48] LABS: BUN/Creatinine Ratio 12.4; Bilirubin, Total 0.2 mg/dL (0.2-1.0); Total Protein 6.4 g/dL (6.4-8.2)
[2021-08-03 11:12] LABS: Potassium 6.2 mmol/L (3.5-5.1)
[2021-08-03] MEDS ORDERED: ALBUTEROL SULF 2.5 MG/0.5ML(0.5%) NEB SOLN NEB ONE (11:15)
[2021-08-03] MEDS ORDERED: InsuLIN REG 1unit/0.01ml Soln (100units/ml) IV ONE (11:15)
[2021-08-03] MEDS ORDERED: SODIUM ZIRCONIUM CYCL 10 GM PAK PO ONE (11:15)
[2021-08-03] MEDS ORDERED: CALCIUM GLUC 1,000mg/50ml-NS 50 ML IV ONE (11:15)
[2021-08-03] MEDS ORDERED: DEXTROSE (50%) 50ML SYRG IV ONE (11:15)
[2021-08-03] MEDS ORDERED: SODIUM BICARBONATE 8.4% INJ 50ML SYRINGE IV ONE (11:15)
[2021-08-03] MEDS ORDERED: DEXTROSE 10% 250 ML IV ONE (12:15)
[2021-08-03] MEDS: FUROSEMIDE 20 MG/2 ML VIAL IV ONE (12:27)
[2021-08-03] MEDS ORDERED: FUROSEMIDE 20 MG/2 ML VIAL IV ONE ×2 (13:30→13:45)
[2021-08-03] MEDS ORDERED: MORPHINE SULFATE INJECTION 2 MG/ML SYRG IV PRN ×3 (14:30→16:00)
[2021-08-03] MEDS ORDERED: NITROGLYCERIN 0.4 MG SL TAB SL PRN ×2 (14:30→16:00)
[2021-08-03] MEDS ORDERED: LACTULOSE 20Gm/30ML SOLN PO ONE (14:45)
[2021-08-03] MEDS ORDERED: LACTULOSE 20Gm/30ML SOLN PO SCH (14:45)
[2021-08-03] MEDS ORDERED: LACTULOSE 10g/15ml SOLN PR ONE (14:45)
[2021-08-03] MEDS ORDERED: DEXTROSE (50%) 50ML SYRG IV PRN (15:30)
[2021-08-03] MEDS ORDERED: cefTRIAXone 1GM/50ML D5W 50 ML IV ONE (15:45)
[2021-08-03] MEDS ORDERED: METOPROLOL SUCCINATE XL 50 MG TAB PO ONE (15:45)
[2021-08-03] MEDS ORDERED: hydrALAZINE HCL 20 MG/ML VL IV PRN (15:45)
[2021-08-03] MEDS ORDERED: ISOSORBIDE MONONITRATE ER 60 MG TAB PO ONE (15:45)
[2021-08-03] MEDS ORDERED: LABETALOL HCL 5 MG/ML 4ML SYRINGE IV PRN (15:45)
[2021-08-03] MEDS ORDERED: LORazepam 0.5 MG TAB PO PRN (16:00)
[2021-08-03] MEDS ORDERED: METOCLOPRAMIDE HCL 5MG/ml INJ 2ml VIAL IV PRN (16:00)
[2021-08-03] MEDS ORDERED: ALUM & MAG HYDROX-SIMETH LIQ(MAALOX) 30 ML PO PRN (16:00)
[2021-08-03] MEDS ORDERED: DOCUSATE SOD 100 MG CAP PO PRN (16:00)
[2021-08-03] MEDS ORDERED: HYDROcodone-ACET 5/325MG TAB PO PRN (16:00)
[2021-08-03 16:11] LABS: % Iron Saturation 32.7 % (20-55)
[2021-08-03 16:16] LABS: Phosphorus 4.2 mg/dL (2.5-4.90)
[2021-08-03 16:30] LABS: Cholesterol 111 mg/dL (< 200); Triglycerides 62 mg/dL (< 150)
[2021-08-03] MEDS ORDERED: ALBUMIN 25% 100 ML IV ONE ×2 (16:30→17:35)
[2021-08-03 16:32] LABS: HDL Cholesterol 35 mg/dL (40-59); LDL Cholesterol 63 mg/dL (< 100)
[2021-08-03 16:40] LABS: INR 1.1 (0.9-1.15); Partial Thromboplastin Time 29.4 sec (23.6-33.0)
[2021-08-03] MEDS ORDERED: BUMETANIDE 2.5mg/10ml (0.25 mg/ml) INJ IV ONE (16:45)
[2021-08-03] MEDS: ACCU-CHEK COMFORT CURVE STRIP VI SCH ×2 (17:00→22:08)
[2021-08-03] MEDS: InsuLIN REG 1unit/0.01ml Soln (100units/ml) SC SCH ×2 (17:00→22:00)
[2021-08-03 17:03] LABS: Urine Bacteria NONE SEEN /hpf (None Seen); Urine Blood 1+ /uL (Negative); Urine Hyaline Cast FEW /lpf (0 - 2); Urine Specific Gravity 1.008 (1.001-1.035); Urine WBC 1 /hpf (0 - 3)
[2021-08-03] MEDS ORDERED: AZITHROMYCIN 500MG/ 250ML 250 ML IV ONE (17:30)
[2021-08-03 17:49] LABS: Alcohol, Urine < 3.0 mg/dL (0-10); Amphetamine Screen, Urine NEGATIVE (NEGATIVE); Barbiturate Scree,Urine NEGATIVE (NEGATIVE); Benzodiazephine Screen, Urine NEGATIVE (NEGATIVE); Cannabinoid Screen, Urine NEGATIVE (NEGATIVE); Cocaine Screen, Urine NEGATIVE (NEGATIVE); Opiate Scree,Urine NEGATIVE (NEGATIVE); Phencyclidine Screen, Urine NEGATIVE (NEGATIVE)
[2021-08-03] MEDS: TACROLIMUS 1 MG CAP PO SCH (18:29)
[2021-08-03] MEDS: CALCIUM CARB 500 MG CHEW TAB PO SCH (18:31)
[2021-08-03] MEDS: LACTULOSE 20Gm/30ML SOLN PO SCH ×2 (19:11→22:09)
[2021-08-03] MEDS ORDERED: TACROLIMUS 1 MG CAP PO SCH (22:00)
[2021-08-03] MEDS: MYCOPHENOLATE 250 MG CAP PO SCH (22:05)
[2021-08-03] MEDS: ISOSORBIDE MONONITRATE 20 MG TAB PO SCH (22:05)
[2021-08-03] MEDS: ATORVASTATIN 20 MG TAB PO SCH (22:08)
[2021-08-03] MEDS: SODIUM BICARBONATE 650 MG TAB PO SCH (22:40)
[2021-08-04] MEDS: ALBUMIN 25% 100 ML IV SCH ×3 (00:52→16:39)
[2021-08-04] MEDS: LACTULOSE 20Gm/30ML SOLN PO SCH ×6 (03:00→21:34)
[2021-08-04 05:22] LABS: Basophils # (auto) 0 10 ^3/uL (0-0.2); Basophils % (auto) 0.6 % (0.0-2.0); Eosinophils # (auto) 0.1 10 ^3/uL (0-0.8); Lymphocytes # (auto) 0.4 10 ^3/uL (0.4-5.4); Mean Corpuscular Hemoglobin 27.8 pg (28.0-32.0); Mean Corpuscular Hgb Conc. 32.6 g/dL (32.0-36.0); Mean Corpuscular Volume 85.3 fL (80.0-100.0); Monocytes # (auto) 0.2 10 ^3/uL (0-1.3); Monocytes % (auto) 5.4 % (0.0-12.0); Neutrophils # (auto) 2.2 10 ^3/uL (1.6-8.6); White Blood Cell 2.9 10^3/uL (4.4-10.8)
[2021-08-04 05:25] LABS: Eosinophils % (auto) 4.4 % (0.0-7.0); Hematocrit 18.5 % (41.0-53.0); Lymphocytes % (auto) 13.9 % (10.0-50.0); Neutrophils % (auto) 75.7 % (37.0-80.0); Red Blood Cells 2.17 10^6/uL (4.5-5.90); Red Cell Distribution Width 15.1 % (11.8-14.3)
[2021-08-04] MEDS: SODIUM BICARBONATE 650 MG TAB PO SCH (05:29)
[2021-08-04] MEDS: BUMETANIDE 2.5mg/10ml (0.25 mg/ml) INJ IV SCH ×2 (05:29→19:28)
[2021-08-04 05:31] LABS: INR 1.16 (0.9-1.15); Partial Thromboplastin Time 30.7 sec (23.6-33.0)
[2021-08-04 05:41] LABS: Albumin 2.7 g/dL (3.4-5.0); Calcium 6.2 mg/dL (8.5-10.1); Magnesium 1.6 mg/dL (1.6-2.6); Potassium 5.2 mmol/L (3.5-5.1)
[2021-08-04 05:47] LABS: BUN/Creatinine Ratio 11.4; Bilirubin, Total 0.2 mg/dL (0.2-1.0); CRP High Sensitivity 0.62 mg/dL (< 0.3); Phosphorus 5.2 mg/dL (2.5-4.90); Total Protein 5.4 g/dL (6.4-8.2); Uric Acid 6.8 mg/dL (3.5-7.2)
[2021-08-04 05:53] LABS: Hemoglobin 6.1 g/dL (13.5-17.5)
[2021-08-04] MEDS: InsuLIN REG 1unit/0.01ml Soln (100units/ml) SC SCH ×4 (06:31→21:33)
[2021-08-04] MEDS: ACCU-CHEK COMFORT CURVE STRIP VI SCH ×4 (06:31→21:34)
[2021-08-04] MEDS: TACROLIMUS 1 MG CAP PO SCH ×2 (06:32→17:00)
[2021-08-04] MEDS: CALCIUM CARB 500 MG CHEW TAB PO SCH ×3 (09:31→19:26)
[2021-08-04] MEDS: cefTRIAXone 1GM/50ML D5W 50 ML IV SCH (09:31)
[2021-08-04] MEDS: MYCOPHENOLATE 250 MG CAP PO SCH ×2 (09:33→22:00)
[2021-08-04] MEDS: ISOSORBIDE MONONITRATE 20 MG TAB PO SCH ×2 (09:34→21:42)
[2021-08-04] MEDS: CALCITRIOL 0.25 MCG CAP PO SCH (09:34)
[2021-08-04] MEDS: CHOLECALCIFEROL (VITD3) 2,000 UNIT CAP/TAB PO SCH (09:35)
[2021-08-04] MEDS: METOPROLOL SUCCINATE XL 50 MG TAB PO SCH (09:35)
[2021-08-04] MEDS: FEBUXOSTAT PO SCH (09:35)
[2021-08-04 10:43] VITALS: BP 140/81
[2021-08-04] MEDS: AZITHROMYCIN 500MG/ 250ML 250 ML IV SCH (10:56)
[2021-08-04 12:41] VITALS: BP 148/78
[2021-08-04 13:00] VITALS: BP 140/79
[2021-08-04 17:17] VITALS: BP 160/90
[2021-08-04 17:35] LABS: Hemoglobin 6.8 g/dL (13.5-17.5)
[2021-08-04] MEDS: SODIUM BICARBONATE 50ML VIAL 50 ML in SOD CHL 0.45% 1,000 ML IV SCH ×2 (19:00→19:24)
[2021-08-04 20:00] VITALS: BP 145/80
[2021-08-04] MEDS: ATORVASTATIN 20 MG TAB PO SCH (21:42)
[2021-08-05] MEDS: LACTULOSE 20Gm/30ML SOLN PO SCH ×6 (03:00→22:35)
[2021-08-05 06:31] LABS: Basophils # (auto) 0 10 ^3/uL (0-0.2); Eosinophils # (auto) 0.1 10 ^3/uL (0-0.8); Hematocrit 21.7 % (41.0-53.0); Lymphocytes # (auto) 0.4 10 ^3/uL (0.4-5.4); Monocytes # (auto) 0.2 10 ^3/uL (0-1.3); White Blood Cell 3.2 10^3/uL (4.4-10.8)
[2021-08-05 06:33] LABS: Basophils % (auto) 0.7 % (0.0-2.0); Eosinophils % (auto) 4.1 % (0.0-7.0); Hemoglobin 7.1 g/dL (13.5-17.5); Lymphocytes % (auto) 12.3 % (10.0-50.0); Mean Corpuscular Hemoglobin 27.6 pg (28.0-32.0); Mean Corpuscular Hgb Conc. 32.7 g/dL (32.0-36.0); Mean Corpuscular Volume 84.2 fL (80.0-100.0); Monocytes % (auto) 5.7 % (0.0-12.0); Neutrophils # (auto) 2.5 10 ^3/uL (1.6-8.6); Neutrophils % (auto) 77.2 % (37.0-80.0); Red Blood Cells 2.57 10^6/uL (4.5-5.90)
[2021-08-05 06:47] LABS: Potassium 5.1 mmol/L (3.5-5.1)
[2021-08-05] MEDS: InsuLIN REG 1unit/0.01ml Soln (100units/ml) SC SCH ×4 (07:00→22:32)
[2021-08-05 07:04] LABS: Albumin 2.8 g/dL (3.4-5.0); Bilirubin, Total 0.2 mg/dL (0.2-1.0); Calcium 6.3 mg/dL (8.5-10.1); Total Protein 5.5 g/dL (6.4-8.2)
[2021-08-05] MEDS: SODIUM BICARBONATE 50ML VIAL 50 ML in SOD CHL 0.45% 1,000 ML IV SCH ×3 (07:06→18:13)
[2021-08-05] MEDS: TACROLIMUS 1 MG CAP PO SCH ×2 (07:07→17:00)
[2021-08-05] MEDS: BUMETANIDE 2.5mg/10ml (0.25 mg/ml) INJ IV SCH ×2 (07:07→18:02)
[2021-08-05] MEDS: ACCU-CHEK COMFORT CURVE STRIP VI SCH ×4 (07:08→22:25)
[2021-08-05 08:00] VITALS: BP 134/86
[2021-08-05] MEDS: CALCIUM CARB 500 MG CHEW TAB PO SCH ×3 (08:00→18:02)
[2021-08-05] MEDS: cefTRIAXone 1GM/50ML D5W 50 ML IV SCH (09:19)
[2021-08-05] MEDS: AZITHROMYCIN 500MG/ 250ML 250 ML IV SCH (09:20)
[2021-08-05] MEDS: MYCOPHENOLATE 250 MG CAP PO SCH ×2 (09:21→22:38)
[2021-08-05] MEDS: ISOSORBIDE MONONITRATE 20 MG TAB PO SCH ×2 (09:22→22:31)
[2021-08-05] MEDS: METOPROLOL SUCCINATE XL 50 MG TAB PO SCH (09:23)
[2021-08-05] MEDS: CALCITRIOL 0.25 MCG CAP PO SCH (09:23)
[2021-08-05] MEDS: CHOLECALCIFEROL (VITD3) 2,000 UNIT CAP/TAB PO SCH (09:23)
[2021-08-05] MEDS: FEBUXOSTAT PO SCH (10:00)
[2021-08-05 10:30] VITALS: BP 152/89
[2021-08-05 13:13] VITALS: BP 121/80
[2021-08-05 17:00] VITALS: BP 149/80
[2021-08-05 20:00] VITALS: BP 137/88
[2021-08-05 22:00] VITALS: BP 137/88
[2021-08-05] MEDS: ATORVASTATIN 20 MG TAB PO SCH (22:31)
[2021-08-06] MEDS: LACTULOSE 20Gm/30ML SOLN PO SCH ×6 (03:54→23:00)
[2021-08-06] MEDS: SODIUM BICARBONATE 50ML VIAL 50 ML in SOD CHL 0.45% 1,000 ML IV SCH ×3 (04:02→22:30)
[2021-08-06 05:00] VITALS: BP 149/91
[2021-08-06] MEDS: ACCU-CHEK COMFORT CURVE STRIP VI SCH ×4 (06:26→22:30)
[2021-08-06] MEDS: InsuLIN REG 1unit/0.01ml Soln (100units/ml) SC SCH ×4 (06:26→22:30)
[2021-08-06] MEDS: BUMETANIDE 2.5mg/10ml (0.25 mg/ml) INJ IV SCH ×2 (06:34→17:25)
[2021-08-06] MEDS: TACROLIMUS 1 MG CAP PO SCH ×2 (06:35→17:25)
[2021-08-06 07:17] LABS: Basophils # (auto) 0 10 ^3/uL (0-0.2); Basophils % (auto) 0.4 % (0.0-2.0); Eosinophils # (auto) 0.2 10 ^3/uL (0-0.8); Eosinophils % (auto) 5.2 % (0.0-7.0); Hematocrit 21.5 % (41.0-53.0); Hemoglobin 7.1 g/dL (13.5-17.5); Lymphocytes # (auto) 0.4 10 ^3/uL (0.4-5.4); Lymphocytes % (auto) 11.5 % (10.0-50.0); Mean Corpuscular Hemoglobin 27.6 pg (28.0-32.0); Mean Corpuscular Hgb Conc. 32.9 g/dL (32.0-36.0); Mean Corpuscular Volume 83.9 fL (80.0-100.0); Monocytes # (auto) 0.2 10 ^3/uL (0-1.3); Monocytes % (auto) 5.3 % (0.0-12.0); Neutrophils # (auto) 2.9 10 ^3/uL (1.6-8.6); Neutrophils % (auto) 77.6 % (37.0-80.0); Nucleated Red Blood Cells % 0.1 %; Red Blood Cells 2.56 10^6/uL (4.5-5.90); Red Cell Distribution Width 14.6 % (11.8-14.3); White Blood Cell 3.8 10^3/uL (4.4-10.8)
[2021-08-06 08:00] VITALS: BP 137/88
[2021-08-06 08:01] LABS: Albumin 2.7 g/dL (3.4-5.0); Calcium 6.1 mg/dL (8.5-10.1); Potassium 4.9 mmol/L (3.5-5.1)
[2021-08-06 08:05] LABS: BUN/Creatinine Ratio 11.7; Bilirubin, Total 0.2 mg/dL (0.2-1.0); Total Protein 5.3 g/dL (6.4-8.2)
[2021-08-06 08:48] VITALS: BP 159/94
[2021-08-06] MEDS: FEBUXOSTAT PO SCH (10:00)
[2021-08-06] MEDS: cefTRIAXone 1GM/50ML D5W 50 ML IV SCH (10:03)
[2021-08-06] MEDS: CALCIUM CARB 500 MG CHEW TAB PO SCH ×2 (10:03→12:00)
[2021-08-06] MEDS: CHOLECALCIFEROL (VITD3) 2,000 UNIT CAP/TAB PO SCH (10:04)
[2021-08-06] MEDS: CALCITRIOL 0.25 MCG CAP PO SCH (10:04)
[2021-08-06] MEDS: METOPROLOL SUCCINATE XL 50 MG TAB PO SCH (10:04)
[2021-08-06] MEDS: AZITHROMYCIN 500MG/ 250ML 250 ML IV SCH (10:05)
[2021-08-06] MEDS: MYCOPHENOLATE 250 MG CAP PO SCH ×2 (10:05→22:55)
[2021-08-06] MEDS: ISOSORBIDE MONONITRATE 20 MG TAB PO SCH ×2 (10:06→22:30)
[2021-08-06 13:00] VITALS: BP 134/85
[2021-08-06 16:52] VITALS: BP 165/98
[2021-08-06 22:00] VITALS: BP 162/87
[2021-08-06] MEDS: ATORVASTATIN 20 MG TAB PO SCH (22:30)
[2021-08-07] MEDS: LACTULOSE 20Gm/30ML SOLN PO SCH ×6 (03:59→23:00)
[2021-08-07] MEDS: BUMETANIDE 2.5mg/10ml (0.25 mg/ml) INJ IV SCH ×2 (06:53→17:49)
[2021-08-07] MEDS: TACROLIMUS 1 MG CAP PO SCH ×2 (06:53→17:48)
[2021-08-07] MEDS: InsuLIN REG 1unit/0.01ml Soln (100units/ml) SC SCH ×4 (06:54→22:00)
[2021-08-07] MEDS: ACCU-CHEK COMFORT CURVE STRIP VI SCH ×4 (06:54→23:17)
[2021-08-07 07:21] LABS: Basophils # (auto) 0 10 ^3/uL (0-0.2); Eosinophils # (auto) 0.2 10 ^3/uL (0-0.8); Lymphocytes # (auto) 0.5 10 ^3/uL (0.4-5.4); Monocytes # (auto) 0.2 10 ^3/uL (0-1.3); Neutrophils # (auto) 2.4 10 ^3/uL (1.6-8.6); White Blood Cell 3.3 10^3/uL (4.4-10.8)
[2021-08-07 07:24] LABS: Basophils % (auto) 0.6 % (0.0-2.0); Eosinophils % (auto) 5.9 % (0.0-7.0); Hemoglobin 7.1 g/dL (13.5-17.5); Mean Corpuscular Hemoglobin 27.8 pg (28.0-32.0); Mean Corpuscular Hgb Conc. 33.6 g/dL (32.0-36.0); Mean Corpuscular Volume 82.8 fL (80.0-100.0); Neutrophils % (auto) 73.5 % (37.0-80.0); Red Blood Cells 2.54 10^6/uL (4.5-5.90); Red Cell Distribution Width 14.8 % (11.8-14.3)
[2021-08-07 07:37] LABS: Albumin 2.6 g/dL (3.4-5.0); Calcium 6.2 mg/dL (8.5-10.1); Potassium 4.4 mmol/L (3.5-5.1)
[2021-08-07 07:41] LABS: BUN/Creatinine Ratio 10.1; Bilirubin, Total 0.2 mg/dL (0.2-1.0); Total Protein 5.2 g/dL (6.4-8.2)
[2021-08-07 09:00] VITALS: BP 144/83
[2021-08-07] MEDS: cefTRIAXone 1GM/50ML D5W 50 ML IV SCH (09:46)
[2021-08-07] MEDS: AZITHROMYCIN 500MG/ 250ML 250 ML IV SCH (09:46)
[2021-08-07] MEDS: METOPROLOL SUCCINATE XL 50 MG TAB PO SCH (09:50)
[2021-08-07] MEDS: CHOLECALCIFEROL (VITD3) 2,000 UNIT CAP/TAB PO SCH (09:51)
[2021-08-07] MEDS: ISOSORBIDE MONONITRATE 20 MG TAB PO SCH ×2 (09:52→23:16)
[2021-08-07] MEDS: CALCITRIOL 0.25 MCG CAP PO SCH (09:53)
[2021-08-07] MEDS: FEBUXOSTAT PO SCH (10:00)
[2021-08-07] MEDS: SODIUM BICARBONATE 50ML VIAL 50 ML in SOD CHL 0.45% 1,000 ML IV SCH ×3 (10:10→23:16)
[2021-08-07] MEDS: MYCOPHENOLATE 250 MG CAP PO SCH ×2 (11:32→23:16)
[2021-08-07 12:55] VITALS: BP 139/93
[2021-08-07 16:45] VITALS: BP 149/84
[2021-08-07 20:00] VITALS: BP 175/97
[2021-08-07 22:00] VITALS: BP 175/97
[2021-08-07] MEDS: ATORVASTATIN 20 MG TAB PO SCH (23:16)
[2021-08-08 00:38] VITALS: BP 139/85
[2021-08-08] MEDS: LACTULOSE 20Gm/30ML SOLN PO SCH ×3 (03:00→11:00)
[2021-08-08 05:00] VITALS: BP 140/83
[2021-08-08] MEDS: BUMETANIDE 2.5mg/10ml (0.25 mg/ml) INJ IV SCH (06:00)
[2021-08-08] MEDS: TACROLIMUS 1 MG CAP PO SCH (06:50)
[2021-08-08] MEDS: InsuLIN REG 1unit/0.01ml Soln (100units/ml) SC SCH (06:50)
[2021-08-08] MEDS: ACCU-CHEK COMFORT CURVE STRIP VI SCH (06:50)
[2021-08-08] MEDS: SODIUM BICARBONATE 50ML VIAL 50 ML in SOD CHL 0.45% 1,000 ML IV SCH (07:24)
[2021-08-08 07:27] LABS: Basophils # (auto) 0 10 ^3/uL (0-0.2); Basophils % (auto) 0.4 % (0.0-2.0); Eosinophils # (auto) 0.2 10 ^3/uL (0-0.8); Lymphocytes # (auto) 0.5 10 ^3/uL (0.4-5.4); Monocytes # (auto) 0.2 10 ^3/uL (0-1.3); Neutrophils # (auto) 2.7 10 ^3/uL (1.6-8.6); White Blood Cell 3.6 10^3/uL (4.4-10.8)
[2021-08-08 07:30] LABS: Eosinophils % (auto) 4.8 % (0.0-7.0); Hematocrit 21.9 % (41.0-53.0); Hemoglobin 7.3 g/dL (13.5-17.5); Lymphocytes % (auto) 14.2 % (10.0-50.0); Mean Corpuscular Hemoglobin 27.8 pg (28.0-32.0); Mean Corpuscular Hgb Conc. 33.5 g/dL (32.0-36.0); Mean Corpuscular Volume 82.9 fL (80.0-100.0); Monocytes % (auto) 6.5 % (0.0-12.0); Neutrophils % (auto) 74.1 % (37.0-80.0); Red Blood Cells 2.64 10^6/uL (4.5-5.90); Red Cell Distribution Width 14.8 % (11.8-14.3)
[2021-08-08 07:45] LABS: Potassium 4.1 mmol/L (3.5-5.1)
[2021-08-08 08:04] LABS: Albumin 2.6 g/dL (3.4-5.0); BUN/Creatinine Ratio 10.8; Bilirubin, Total 0.2 mg/dL (0.2-1.0); Calcium 6.1 mg/dL (8.5-10.1); Total Protein 5.3 g/dL (6.4-8.2)
[2021-08-08 09:00] VITALS: BP 148/87
[2021-08-08] MEDS: cefTRIAXone 1GM/50ML D5W 50 ML IV SCH (09:00)
[2021-08-08] MEDS ORDERED: FERR-7 PO (09:42)
[2021-08-08] MEDS: METOPROLOL SUCCINATE XL 50 MG TAB PO SCH (10:00)
[2021-08-08] MEDS: CHOLECALCIFEROL (VITD3) 2,000 UNIT CAP/TAB PO SCH (10:00)
[2021-08-08] MEDS: CALCITRIOL 0.25 MCG CAP PO SCH (10:00)
[2021-08-08] MEDS: AZITHROMYCIN 500MG/ 250ML 250 ML IV SCH (10:00)
[2021-08-08] MEDS: FEBUXOSTAT PO SCH (10:00)
[2021-08-08] MEDS: ISOSORBIDE MONONITRATE 20 MG TAB PO SCH (10:00)
[2021-08-08] MEDS: MYCOPHENOLATE 250 MG CAP PO SCH (10:00)
[2021-08-08] MEDS ORDERED: BUMETANIDE 2.5mg/10ml (0.25 mg/ml) INJ IV SCH (11:15)
[2021-08-08] MEDS ORDERED: CALCIUM ACETATE 667 MG CAP PO SCH (12:00)
[2021-08-08 13:00] VITALS: BP 142/88
[2021-08-08 14:35] VITALS: BP 148/87
== END 2021-08-08 16:10 | disposition home or self-care (01) | DRG 663 ==
LOC: ER 09:30 → TELE 14:28 → TELE-CENTR 08-04 12:54
PROVIDERS: ADMIT Hospitalist; ATTEND Family Medicine
PROC: 05HM33Z Insertion of Infusion Device into Right Internal Jugular Vein, Percutaneous Approach (ICD-10-PCS; 2021-08-03)
PROC: 4A143B0 Monitoring of Venous Pressure, Central, Percutaneous Approach (ICD-10-PCS; 2021-08-03)
PROC: 30233N1 Transfusion of Nonautologous Red Blood Cells into Peripheral Vein, Percutaneous Approach (ICD-10-PCS; principal; 2021-08-04)
DX: D64.9 Anemia, unspecified (principal); N17.0 Acute kidney failure with tubular necrosis; K72.00 Acute and subacute hepatic failure without coma; G93.41 Metabolic encephalopathy; E43 Unspecified severe protein-calorie malnutrition; J18.9 Pneumonia, unspecified organism; I50.33 Acute on chronic diastolic (congestive) heart failure; E83.39 Other disorders of phosphorus metabolism; E11.22 Type 2 diabetes mellitus with diabetic chronic kidney disease; I13.0 Hypertensive heart and chronic kidney disease with heart failure and stage 1 through stage 4 chronic kidney disease, or unspecified chronic kidney disease; N18.4 Chronic kidney disease, stage 4 (severe); E87.5 Hyperkalemia; Z94.4 Liver transplant status; E78.5 Hyperlipidemia, unspecified; M10.9 Gout, unspecified; E66.9 Obesity, unspecified; N39.0 Urinary tract infection, site not specified; B18.2 Chronic viral hepatitis C; E11.40 Type 2 diabetes mellitus with diabetic neuropathy, unspecified; Z68.32 Body mass index [BMI] 32.0-32.9, adult; Z20.822 Contact with and (suspected) exposure to COVID-19; Z79.82 Long term (current) use of aspirin; Z79.899 Other long term (current) drug therapy; Z83.3 Family history of diabetes mellitus; Z86.19 Personal history of other infectious and parasitic diseases; T45.1X5A Adverse effect of antineoplastic and immunosuppressive drugs, initial encounter; Y92.89 Other specified places as the place of occurrence of the external cause
CPT/HCPCS: 36415; 36556; 70450; 76705; 80053; 80061; 80197; 80307; 81001; 82140; 82270; 82962; 83036; 83540; 83550; 83615; 83735; 83880; 83970; 84100; 84132; 84443; 84484; 84550; 85014; 85018; 85025; 85379; 85610; 85730; 86141; 86850; 86900; 86901; 86920; 87040; 87086; 87426; 93005; 93970; 94640; 96361; 96365; 96375; 99291; G0378; J0696; J1815; J7507; J7517; P9047

== ENCOUNTER → 2021-09-18 | Outpatient (CLI) | payer MEDICAID ==
[~2021-09-18] MED LIST changes: +FERR-7 PO
[2021-09-18 10:37] LABS: Basophils # (auto) 0 10 ^3/uL (0-0.2); Basophils % (auto) 0.7 % (0.0-2.0); Eosinophils # (auto) 0.2 10 ^3/uL (0-0.8); Eosinophils % (auto) 4.9 % (0.0-7.0); Hematocrit 27.6 % (41.0-53.0); Hemoglobin 8.9 g/dL (13.5-17.5); Lymphocytes # (auto) 0.6 10 ^3/uL (0.4-5.4); Lymphocytes % (auto) 13.2 % (10.0-50.0); Mean Corpuscular Hemoglobin 29.2 pg (28.0-32.0); Mean Corpuscular Hgb Conc. 32.4 g/dL (32.0-36.0); Mean Corpuscular Volume 90.1 fL (80.0-100.0); Monocytes # (auto) 0.2 10 ^3/uL (0-1.3); Monocytes % (auto) 4.6 % (0.0-12.0); Neutrophils # (auto) 3.8 10 ^3/uL (1.6-8.6); Neutrophils % (auto) 76.6 % (37.0-80.0); Red Blood Cells 3.06 10^6/uL (4.5-5.90); Red Cell Distribution Width 17.3 % (11.8-14.3); White Blood Cell 4.9 10^3/uL (4.4-10.8)
[2021-09-18 10:48] LABS: Urine Bacteria NONE SEEN /hpf (None Seen); Urine Blood 1+ /uL (Negative); Urine Specific Gravity 1.014 (1.001-1.035); Urine WBC 1 /hpf (0 - 3)
[2021-09-18 11:51] LABS: Albumin 2.6 g/dL (3.4-5.0); BUN/Creatinine Ratio 14.9; Bilirubin, Total 0.3 mg/dL (0.2-1.0); Calcium 6.4 mg/dL (8.5-10.1); Total Protein 5.9 g/dL (6.4-8.2)
[2021-09-18 13:06] LABS: Potassium 6.4 mmol/L (3.5-5.1)
== END | disposition home or self-care (01) ==
LOC: LAB 10:14
PROVIDERS: ATTEND Student in an Organized Health Care Education/Training Program
DX: E11.9 Type 2 diabetes mellitus without complications (principal); I10 Essential (primary) hypertension
CPT/HCPCS: 36415; 80053; 80061; 81001; 82043; 83036; 84443; 85025

== ENCOUNTER 2021-11-13 12:58 | Inpatient (IN) | payer MEDICAID ==
[~2021-11-13] VITALS: Ht 175.3 cm; Wt 96.1 kg
[2021-11-13 14:04] LABS: Basophils # (auto) 0 10 ^3/uL (0-0.2); Basophils % (auto) 0.9 % (0.0-2.0); Eosinophils # (auto) 0.4 10 ^3/uL (0-0.8); Eosinophils % (auto) 7.7 % (0.0-7.0); Hematocrit 27.3 % (41.0-53.0); Hemoglobin 8.9 g/dL (13.5-17.5); Lymphocytes # (auto) 0.7 10 ^3/uL (0.4-5.4); Lymphocytes % (auto) 13.8 % (10.0-50.0); Mean Corpuscular Hemoglobin 29.8 pg (28.0-32.0); Mean Corpuscular Hgb Conc. 32.8 g/dL (32.0-36.0); Mean Corpuscular Volume 90.8 fL (80.0-100.0); Monocytes # (auto) 0.3 10 ^3/uL (0-1.3); Monocytes % (auto) 7.2 % (0.0-12.0); Neutrophils # (auto) 3.4 10 ^3/uL (1.6-8.6); Neutrophils % (auto) 70.4 % (37.0-80.0); Nucleated Red Blood Cells % 0.1 %; Red Cell Distribution Width 14.9 % (11.8-14.3); White Blood Cell 4.8 10^3/uL (4.4-10.8)
[2021-11-13 14:25] LABS: Albumin 2.4 g/dL (3.4-5.0); BUN/Creatinine Ratio 11.6; Calcium 6.1 mg/dL (8.5-10.1)
[2021-11-13 14:28] LABS: Bilirubin, Total 0.2 mg/dL (0.2-1.0); Total Protein 6.1 g/dL (6.4-8.2)
[2021-11-13 14:30] LABS: Potassium 6.8 mmol/L (3.5-5.1)
[2021-11-13] MEDS ORDERED: DEXTROSE (50%) 50ML SYRG IV ONE (14:45)
[2021-11-13] MEDS ORDERED: InsuLIN REG 1unit/0.01ml Soln (100units/ml) IV ONE (14:45)
[2021-11-13] MEDS ORDERED: CALCIUM GLUC 1,000mg/50ml-NS 50 ML IV ONE (14:45)
[2021-11-13] MEDS ORDERED: SODIUM BICARBONATE 8.4 % INJ 50ML VIAL IV ONE (14:45)
[2021-11-13] MEDS ORDERED: MORPHINE SULFATE INJECTION 2 MG/ML SYRG IV PRN ×2 (15:00→18:45)
[2021-11-13] MEDS ORDERED: FUROSEMIDE 40 MG/4 ML VIAL IV ONE (15:00)
[2021-11-13] MEDS ORDERED: SODIUM ZIRCONIUM CYCL 10 GM PAK PO ONE (15:00)
[2021-11-13] MEDS ORDERED: NITROGLYCERIN 0.4 MG SL TAB SL PRN (15:00)
[2021-11-13 17:59] LABS: Urine Bacteria FEW /hpf (None Seen); Urine Blood 2+ /uL (Negative); Urine Specific Gravity 1.012 (1.001-1.035); Urine WBC 1 /hpf (0 - 3)
[2021-11-13] MEDS ORDERED: D5W 5% 1,000 ML IV SCH (18:30)
[2021-11-13] MEDS ORDERED: ONDANSETRON HCL 4 MG/2 ML VIAL IV PRN (18:45)
[2021-11-13] MEDS ORDERED: PANTOPRAZOLE 40 MG/10 ML VIAL INJ IV ONE (18:45)
[2021-11-13] MEDS ORDERED: LACTULOSE 20Gm/30ML SOLN PO PRN (18:45)
[2021-11-13] MEDS ORDERED: DEXTROSE (50%) 50ML SYRG IV PRN (18:45)
[2021-11-13] MEDS ORDERED: LABETALOL HCL 5 MG/ML 4ML SYRINGE IV PRN (18:45)
[2021-11-13] MEDS ORDERED: TACROLIMUS 1 MG CAP PO SCH (18:45)
[2021-11-13] MEDS ORDERED: NIFEdipine ER 30 MG TAB PO ONE (18:45)
[2021-11-13] MEDS ORDERED: DOCUSATE SOD 100 MG CAP PO PRN (18:45)
[2021-11-13] MEDS ORDERED: hydrALAZINE HCL 20 MG/ML VL IV PRN (18:45)
[2021-11-13 20:05] LABS: Magnesium 1.4 mg/dL (1.6-2.6); Phosphorus 5.8 mg/dL (2.5-4.90)
[2021-11-13 20:10] LABS: Potassium 5.6 mmol/L (3.5-5.1)
[2021-11-13 20:13] LABS: INR 1.05 (0.9-1.15); Partial Thromboplastin Time 27.1 sec (23.6-33.0)
[2021-11-13 22:00] VITALS: BP 159/100
[2021-11-13] MEDS: InsuLIN REG 1unit/0.01ml Soln (100units/ml) SC SCH (22:00)
[2021-11-13] MEDS: GABAPENTIN 300 MG CAP PO SCH (23:07)
[2021-11-13] MEDS: hydrALAZINE HCL 25 MG TAB PO SCH (23:07)
[2021-11-13] MEDS: CALCIUM CARB 500 MG CHEW TAB PO SCH (23:07)
[2021-11-13] MEDS: SODIUM BICARBONATE 650 MG TAB PO SCH (23:08)
[2021-11-13] MEDS: MYCOPHENOLATE 250 MG CAP PO SCH (23:08)
[2021-11-13] MEDS: SODIUM ZIRCONIUM CYCL 10 GM PAK PO SCH (23:08)
[2021-11-13] MEDS: ACCU-CHEK COMFORT CURVE STRIP VI SCH (23:09)
[2021-11-13] MEDS: TACROLIMUS 1 MG CAP PO SCH (23:49)
[2021-11-14 05:00] VITALS: BP 147/74
[2021-11-14] MEDS: GABAPENTIN 300 MG CAP PO SCH ×2 (05:42→22:10)
[2021-11-14] MEDS: BUMETANIDE 2.5mg/10ml (0.25 mg/ml) INJ IV SCH ×2 (05:42→17:34)
[2021-11-14] MEDS: SODIUM BICARBONATE 650 MG TAB PO SCH ×3 (05:42→22:08)
[2021-11-14] MEDS: hydrALAZINE HCL 25 MG TAB PO SCH ×3 (05:42→22:09)
[2021-11-14] MEDS: SODIUM ZIRCONIUM CYCL 10 GM PAK PO SCH ×3 (05:43→22:09)
[2021-11-14] MEDS: InsuLIN REG 1unit/0.01ml Soln (100units/ml) SC SCH ×4 (06:12→22:00)
[2021-11-14] MEDS: ACCU-CHEK COMFORT CURVE STRIP VI SCH ×4 (06:13→22:14)
[2021-11-14 06:20] LABS: Basophils # (auto) 0 10 ^3/uL (0-0.2); Basophils % (auto) 0.9 % (0.0-2.0); Eosinophils # (auto) 0.3 10 ^3/uL (0-0.8); Eosinophils % (auto) 7.4 % (0.0-7.0); Hematocrit 26.4 % (41.0-53.0); Lymphocytes # (auto) 0.5 10 ^3/uL (0.4-5.4); Lymphocytes % (auto) 14.2 % (10.0-50.0); Mean Corpuscular Hemoglobin 30.4 pg (28.0-32.0); Mean Corpuscular Volume 89.3 fL (80.0-100.0); Monocytes # (auto) 0.3 10 ^3/uL (0-1.3); Monocytes % (auto) 7.5 % (0.0-12.0); Neutrophils # (auto) 2.6 10 ^3/uL (1.6-8.6); Nucleated Red Blood Cells % 0.1 %; Red Blood Cells 2.96 10^6/uL (4.5-5.90); White Blood Cell 3.7 10^3/uL (4.4-10.8)
[2021-11-14 06:30] LABS: INR 1.03 (0.9-1.15); Partial Thromboplastin Time 30.5 sec (23.6-33.0)
[2021-11-14 06:59] LABS: Albumin 2.3 g/dL (3.4-5.0); BUN/Creatinine Ratio 11.6; Bilirubin, Total 0.4 mg/dL (0.2-1.0); CRP High Sensitivity 1.94 mg/dL (< 0.3); Calcium 6.4 mg/dL (8.5-10.1); Magnesium 1.8 mg/dL (1.6-2.6); Uric Acid 6.7 mg/dL (3.5-7.2)
[2021-11-14 07:05] LABS: Potassium 5.6 mmol/L (3.5-5.1)
[2021-11-14 08:55] VITALS: BP 139/78
[2021-11-14] MEDS: ASPirin-EC 81 mg tab PO SCH (09:38)
[2021-11-14] MEDS: PANTOPRAZOLE 40 MG/10 ML VIAL INJ IV SCH (09:39)
[2021-11-14] MEDS: CALCITRIOL 0.25 MCG CAP PO SCH (09:41)
[2021-11-14] MEDS: CALCIUM CARB 500 MG CHEW TAB PO SCH ×2 (09:41→22:10)
[2021-11-14] MEDS: FERROUS SULFATE 325mg EC TAB PO SCH ×3 (09:41→17:34)
[2021-11-14] MEDS: NIFEdipine ER 30 MG TAB PO SCH (09:41)
[2021-11-14] MEDS: ENOXAPARIN SOD 30 MG/0.3 ML SYRINGE SC SCH (09:42)
[2021-11-14] MEDS: TACROLIMUS 1 MG CAP PO SCH ×2 (12:09→22:10)
[2021-11-14] MEDS: MYCOPHENOLATE 250 MG CAP PO SCH ×2 (12:09→22:09)
[2021-11-14] MEDS: MAGNESIUM SULFATE 1GM/100ML 100 ML IV SCH ×2 (12:26→12:30)
[2021-11-14] MEDS: CALCIUM ACETATE 667 MG CAP PO SCH ×2 (12:27→17:34)
[2021-11-14 13:12] VITALS: BP 131/77
[2021-11-14] MEDS ORDERED: B-COMPLEX W/ C & FOLIC ACID(NEPHROVITE TAB) PO SCH (14:00)
[2021-11-14] MEDS: B-COMPLEX W/ C & FOLIC ACID(NEPHROVITE TAB) PO SCH (15:31)
[2021-11-14] MEDS: SODIUM BICARBONATE 50ML VIAL 50 ML in SOD CHL 0.45% 1,000 ML IV SCH ×2 (15:31→22:15)
[2021-11-14 17:19] VITALS: BP 124/70
[2021-11-14 22:00] VITALS: BP 140/86
[2021-11-15] VITALS (7 sets, daily range): BP systolic 115–140; BP diastolic 75–87
[2021-11-15 05:53] LABS: Basophils # (auto) 0 10 ^3/uL (0-0.2); Basophils % (auto) 0.7 % (0.0-2.0); Eosinophils # (auto) 0.3 10 ^3/uL (0-0.8); Eosinophils % (auto) 7.2 % (0.0-7.0); Hematocrit 25.3 % (41.0-53.0); Hemoglobin 8.7 g/dL (13.5-17.5); Lymphocytes # (auto) 0.5 10 ^3/uL (0.4-5.4); Lymphocytes % (auto) 10.4 % (10.0-50.0); Mean Corpuscular Hemoglobin 30.2 pg (28.0-32.0); Mean Corpuscular Hgb Conc. 34.2 g/dL (32.0-36.0); Mean Corpuscular Volume 88.3 fL (80.0-100.0); Monocytes # (auto) 0.3 10 ^3/uL (0-1.3); Monocytes % (auto) 6.8 % (0.0-12.0); Neutrophils # (auto) 3.5 10 ^3/uL (1.6-8.6); Neutrophils % (auto) 74.9 % (37.0-80.0); Red Blood Cells 2.87 10^6/uL (4.5-5.90); Red Cell Distribution Width 14.8 % (11.8-14.3); White Blood Cell 4.7 10^3/uL (4.4-10.8)
[2021-11-15 06:14] LABS: Potassium 5.2 mmol/L (3.5-5.1)
[2021-11-15 06:17] LABS: BUN/Creatinine Ratio 11.2; Calcium 6.2 mg/dL (8.5-10.1)
[2021-11-15] MEDS: hydrALAZINE HCL 25 MG TAB PO SCH ×3 (06:20→22:00)
[2021-11-15] MEDS: BUMETANIDE 2.5mg/10ml (0.25 mg/ml) INJ IV SCH ×2 (06:20→17:09)
[2021-11-15] MEDS: SODIUM BICARBONATE 650 MG TAB PO SCH ×3 (06:20→22:02)
[2021-11-15] MEDS: ACCU-CHEK COMFORT CURVE STRIP VI SCH ×4 (06:21→22:03)
[2021-11-15] MEDS: InsuLIN REG 1unit/0.01ml Soln (100units/ml) SC SCH ×4 (06:21→22:00)
[2021-11-15] MEDS: SODIUM ZIRCONIUM CYCL 10 GM PAK PO SCH ×2 (06:21→15:02)
[2021-11-15] MEDS ORDERED: SODIUM CHL 0.9% 1000 ML BAG XX ONE (07:00)
[2021-11-15] MEDS: CALCIUM ACETATE 667 MG CAP PO SCH ×3 (08:00→17:11)
[2021-11-15] MEDS: NIFEdipine ER 30 MG TAB PO SCH (08:09)
[2021-11-15] MEDS: PANTOPRAZOLE 40 MG/10 ML VIAL INJ IV SCH (08:09)
[2021-11-15] MEDS: TACROLIMUS 1 MG CAP PO SCH ×2 (08:10→22:02)
[2021-11-15] MEDS: MYCOPHENOLATE 250 MG CAP PO SCH ×2 (08:11→22:02)
[2021-11-15] MEDS ORDERED: MIDAZOLAM HCL 2MG/2ML 2ml VIAL (1mg/ml) ONE (11:35)
[2021-11-15] MEDS ORDERED: HEPARIN SODIUM (PORCINE) 5000 UNITS/ML 1ML VIAL ONE (11:35)
[2021-11-15] MEDS ORDERED: fentaNYL CITRATE 100 MCG/2 ML VL ONE (11:35)
[2021-11-15] MEDS ORDERED: IODIXANOL 320MG/ML 100ML BTL IV ONE (11:36)
[2021-11-15] MEDS ORDERED: LIDOCAINE 2%HCL (LOCAL ANESTH.) INJ 10ml MDV ONE (11:36)
[2021-11-15] MEDS: FERROUS SULFATE 325mg EC TAB PO SCH ×3 (12:00→17:10)
[2021-11-15 12:56] LABS: Hepatitis A Ab IgM Negative; Hepatitis B Core IgM Negative
[2021-11-15 12:57] LABS: Hepatitis C Antibody Negative (Negative)
[2021-11-15] MEDS: B-COMPLEX W/ C & FOLIC ACID(NEPHROVITE TAB) PO SCH (15:05)
[2021-11-15] MEDS: ASPirin-EC 81 mg tab PO SCH (15:05)
[2021-11-15] MEDS: GABAPENTIN 300 MG CAP PO SCH ×2 (15:05→22:02)
[2021-11-15] MEDS: CALCIUM CARB 500 MG CHEW TAB PO SCH ×2 (15:06→22:03)
[2021-11-15] MEDS: ENOXAPARIN SOD 30 MG/0.3 ML SYRINGE SC SCH (15:06)
[2021-11-15] MEDS: SODIUM BICARBONATE 50ML VIAL 50 ML in SOD CHL 0.45% 1,000 ML IV SCH ×2 (15:07→17:11)
[2021-11-15] MEDS: CALCITRIOL 0.25 MCG CAP PO SCH (15:07)
[2021-11-15] MEDS ORDERED: EPOETIN ALFA-EPBX 10,000 UNIT/1ML VIAL SC ONE (21:00)
[2021-11-16 05:00] VITALS: BP 129/76
[2021-11-16] MEDS: InsuLIN REG 1unit/0.01ml Soln (100units/ml) SC SCH ×4 (06:18→22:00)
[2021-11-16] MEDS: SODIUM BICARBONATE 650 MG TAB PO SCH ×3 (06:18→23:42)
[2021-11-16] MEDS: hydrALAZINE HCL 25 MG TAB PO SCH ×3 (06:18→23:43)
[2021-11-16] MEDS: BUMETANIDE 2.5mg/10ml (0.25 mg/ml) INJ IV SCH ×2 (06:18→17:38)
[2021-11-16] MEDS: ACCU-CHEK COMFORT CURVE STRIP VI SCH ×4 (06:19→23:44)
[2021-11-16 06:28] LABS: Basophils # (auto) 0 10 ^3/uL (0-0.2); Basophils % (auto) 0.5 % (0.0-2.0); Eosinophils # (auto) 0.3 10 ^3/uL (0-0.8); Eosinophils % (auto) 5.8 % (0.0-7.0); Hematocrit 25.5 % (41.0-53.0); Hemoglobin 9.2 g/dL (13.5-17.5); Lymphocytes # (auto) 0.6 10 ^3/uL (0.4-5.4); Lymphocytes % (auto) 10.6 % (10.0-50.0); Mean Corpuscular Hemoglobin 30.7 pg (28.0-32.0); Mean Corpuscular Volume 85.3 fL (80.0-100.0); Monocytes # (auto) 0.5 10 ^3/uL (0-1.3); Monocytes % (auto) 9.2 % (0.0-12.0); Neutrophils # (auto) 4.1 10 ^3/uL (1.6-8.6); Neutrophils % (auto) 73.9 % (37.0-80.0); Red Blood Cells 2.99 10^6/uL (4.5-5.90); Red Cell Distribution Width 14.7 % (11.8-14.3); White Blood Cell 5.5 10^3/uL (4.4-10.8)
[2021-11-16 06:45] LABS: Potassium 4.2 mmol/L (3.5-5.1)
[2021-11-16 06:54] LABS: Albumin 2.1 g/dL (3.4-5.0); BUN/Creatinine Ratio 10.6; Bilirubin, Total 0.3 mg/dL (0.2-1.0); Calcium 6.6 mg/dL (8.5-10.1); Total Protein 5.5 g/dL (6.4-8.2)
[2021-11-16 07:45] VITALS: BP 118/75
[2021-11-16 09:00] VITALS: BP 118/75
[2021-11-16] MEDS: ENOXAPARIN SOD 30 MG/0.3 ML SYRINGE SC SCH (09:27)
[2021-11-16] MEDS: FERROUS SULFATE 325mg EC TAB PO SCH ×3 (09:30→17:40)
[2021-11-16] MEDS: ASPirin-EC 81 mg tab PO SCH (09:30)
[2021-11-16] MEDS: CALCIUM ACETATE 667 MG CAP PO SCH ×3 (09:30→17:38)
[2021-11-16] MEDS: NIFEdipine ER 30 MG TAB PO SCH (09:31)
[2021-11-16] MEDS: CALCIUM CARB 500 MG CHEW TAB PO SCH ×2 (09:31→23:44)
[2021-11-16] MEDS: B-COMPLEX W/ C & FOLIC ACID(NEPHROVITE TAB) PO SCH (09:31)
[2021-11-16] MEDS: CALCITRIOL 0.25 MCG CAP PO SCH (09:31)
[2021-11-16] MEDS: MYCOPHENOLATE 250 MG CAP PO SCH ×2 (09:31→23:42)
[2021-11-16] MEDS: GABAPENTIN 300 MG CAP PO SCH ×2 (09:31→23:43)
[2021-11-16] MEDS: PANTOPRAZOLE 40 MG/10 ML VIAL INJ IV SCH (09:31)
[2021-11-16] MEDS: TACROLIMUS 1 MG CAP PO SCH ×2 (09:32→23:44)
[2021-11-16] MEDS: SODIUM BICARBONATE 50ML VIAL 50 ML in SOD CHL 0.45% 1,000 ML IV SCH ×2 (09:32→15:30)
[2021-11-16 13:00] VITALS: BP 130/88
[2021-11-16 17:00] VITALS: BP 114/77
[2021-11-16 22:00] VITALS: BP_SYST 123; BP_SYST 145; BP_DIAS 76; BP_DIAS 94
[2021-11-17] MEDS: SODIUM BICARBONATE 50ML VIAL 50 ML in SOD CHL 0.45% 1,000 ML IV SCH ×2 (03:49→13:12)
[2021-11-17 05:00] VITALS: BP 115/75
[2021-11-17] MEDS: ACCU-CHEK COMFORT CURVE STRIP VI SCH ×4 (06:07→22:05)
[2021-11-17] MEDS: InsuLIN REG 1unit/0.01ml Soln (100units/ml) SC SCH ×4 (06:07→22:00)
[2021-11-17] MEDS: BUMETANIDE 2.5mg/10ml (0.25 mg/ml) INJ IV SCH ×2 (06:14→17:53)
[2021-11-17] MEDS: SODIUM BICARBONATE 650 MG TAB PO SCH ×3 (06:14→22:00)
[2021-11-17] MEDS: hydrALAZINE HCL 25 MG TAB PO SCH ×3 (06:14→22:04)
[2021-11-17 06:20] LABS: Basophils # (auto) 0 10 ^3/uL (0-0.2); Basophils % (auto) 0.4 % (0.0-2.0); Eosinophils # (auto) 0.3 10 ^3/uL (0-0.8); Eosinophils % (auto) 6.4 % (0.0-7.0); Hematocrit 23.7 % (41.0-53.0); Hemoglobin 8.5 g/dL (13.5-17.5); Lymphocytes # (auto) 0.6 10 ^3/uL (0.4-5.4); Mean Corpuscular Hemoglobin 30.9 pg (28.0-32.0); Mean Corpuscular Hgb Conc. 35.7 g/dL (32.0-36.0); Mean Corpuscular Volume 86.4 fL (80.0-100.0); Monocytes # (auto) 0.4 10 ^3/uL (0-1.3); Monocytes % (auto) 8.6 % (0.0-12.0); Neutrophils # (auto) 3.5 10 ^3/uL (1.6-8.6); Neutrophils % (auto) 72.6 % (37.0-80.0); Red Blood Cells 2.74 10^6/uL (4.5-5.90); White Blood Cell 4.9 10^3/uL (4.4-10.8)
[2021-11-17 06:34] LABS: Calcium 6.5 mg/dL (8.5-10.1); Potassium 4.2 mmol/L (3.5-5.1)
[2021-11-17 06:39] LABS: BUN/Creatinine Ratio 10.3; Bilirubin, Total 0.4 mg/dL (0.2-1.0); Total Protein 5.3 g/dL (6.4-8.2)
[2021-11-17 09:00] VITALS: BP 126/74
[2021-11-17] MEDS: FERROUS SULFATE 325mg EC TAB PO SCH ×3 (09:46→17:53)
[2021-11-17] MEDS: MYCOPHENOLATE 250 MG CAP PO SCH ×2 (09:47→22:04)
[2021-11-17] MEDS: PANTOPRAZOLE 40 MG/10 ML VIAL INJ IV SCH (09:47)
[2021-11-17] MEDS: ASPirin-EC 81 mg tab PO SCH (09:47)
[2021-11-17] MEDS: B-COMPLEX W/ C & FOLIC ACID(NEPHROVITE TAB) PO SCH (09:47)
[2021-11-17] MEDS: CALCIUM ACETATE 667 MG CAP PO SCH ×3 (09:47→17:53)
[2021-11-17] MEDS: GABAPENTIN 300 MG CAP PO SCH ×2 (09:48→22:04)
[2021-11-17] MEDS: NIFEdipine ER 30 MG TAB PO SCH (09:49)
[2021-11-17] MEDS: TACROLIMUS 1 MG CAP PO SCH ×2 (09:49→22:04)
[2021-11-17] MEDS: CALCIUM CARB 500 MG CHEW TAB PO SCH ×2 (09:50→22:04)
[2021-11-17] MEDS: CALCITRIOL 0.25 MCG CAP PO SCH (09:50)
[2021-11-17] MEDS ORDERED: ENOXAPARIN SOD 100 MG/1 ML SYRINGE SC SCH ×2 (10:00→10:15)
[2021-11-17] MEDS: ENOXAPARIN SOD 100 MG/1 ML SYRINGE SC SCH (11:00)
[2021-11-17 13:00] VITALS: BP 131/83
[2021-11-17 17:00] VITALS: BP 134/82
[2021-11-17 22:00] VITALS: BP 130/80
[2021-11-18 04:58] VITALS: BP 134/76
[2021-11-18] MEDS: SODIUM BICARBONATE 50ML VIAL 50 ML in SOD CHL 0.45% 1,000 ML IV SCH ×3 (06:39→20:00)
[2021-11-18] MEDS: BUMETANIDE 2.5mg/10ml (0.25 mg/ml) INJ IV SCH ×2 (06:40→18:06)
[2021-11-18] MEDS: hydrALAZINE HCL 25 MG TAB PO SCH ×3 (06:40→22:46)
[2021-11-18] MEDS: SODIUM BICARBONATE 650 MG TAB PO SCH ×3 (06:40→22:45)
[2021-11-18] MEDS: InsuLIN REG 1unit/0.01ml Soln (100units/ml) SC SCH ×4 (06:41→22:00)
[2021-11-18] MEDS: ACCU-CHEK COMFORT CURVE STRIP VI SCH ×4 (06:41→22:48)
[2021-11-18 07:53] LABS: Basophils # (auto) 0 10 ^3/uL (0-0.2); Eosinophils # (auto) 0.3 10 ^3/uL (0-0.8); Lymphocytes # (auto) 0.5 10 ^3/uL (0.4-5.4); Monocytes # (auto) 0.4 10 ^3/uL (0-1.3)
[2021-11-18] MEDS: FERROUS SULFATE 325mg EC TAB PO SCH ×3 (07:55→18:07)
[2021-11-18] MEDS: CALCIUM ACETATE 667 MG CAP PO SCH ×3 (07:55→18:07)
[2021-11-18 07:57] LABS: Basophils % (auto) 0.5 % (0.0-2.0); Eosinophils % (auto) 6.7 % (0.0-7.0); Hematocrit 22.5 % (41.0-53.0); Hemoglobin 7.9 g/dL (13.5-17.5); Lymphocytes % (auto) 10.4 % (10.0-50.0); Mean Corpuscular Hemoglobin 30.7 pg (28.0-32.0); Mean Corpuscular Hgb Conc. 35.2 g/dL (32.0-36.0); Mean Corpuscular Volume 87.1 fL (80.0-100.0); Monocytes % (auto) 8.2 % (0.0-12.0); Neutrophils # (auto) 3.6 10 ^3/uL (1.6-8.6); Neutrophils % (auto) 74.2 % (37.0-80.0); Nucleated Red Blood Cells % 0.1 %; Red Blood Cells 2.59 10^6/uL (4.5-5.90); Red Cell Distribution Width 14.3 % (11.8-14.3); White Blood Cell 4.9 10^3/uL (4.4-10.8)
[2021-11-18 08:00] VITALS: BP 125/77
[2021-11-18 08:08] LABS: Calcium 6.5 mg/dL (8.5-10.1); Potassium 4.4 mmol/L (3.5-5.1)
[2021-11-18 08:10] LABS: BUN/Creatinine Ratio 10.4
[2021-11-18 08:12] LABS: Bilirubin, Total 0.3 mg/dL (0.2-1.0); Total Protein 5.2 g/dL (6.4-8.2)
[2021-11-18 09:00] VITALS: BP 125/77
[2021-11-18] MEDS ORDERED: ENOXAPARIN SOD 100 MG/1 ML SYRINGE SC SCH (10:15)
[2021-11-18] MEDS: PANTOPRAZOLE 40 MG/10 ML VIAL INJ IV SCH (12:16)
[2021-11-18] MEDS: GABAPENTIN 300 MG CAP PO SCH ×2 (12:17→22:46)
[2021-11-18] MEDS: B-COMPLEX W/ C & FOLIC ACID(NEPHROVITE TAB) PO SCH (12:17)
[2021-11-18] MEDS: MYCOPHENOLATE 250 MG CAP PO SCH ×2 (12:17→22:45)
[2021-11-18] MEDS: NIFEdipine ER 30 MG TAB PO SCH (12:18)
[2021-11-18] MEDS: CALCITRIOL 0.25 MCG CAP PO SCH (12:18)
[2021-11-18] MEDS: CALCIUM CARB 500 MG CHEW TAB PO SCH ×2 (12:18→22:47)
[2021-11-18] MEDS: ENOXAPARIN SOD 100 MG/1 ML SYRINGE SC SCH (12:19)
[2021-11-18 13:00] VITALS: BP 148/90
[2021-11-18] MEDS ORDERED: TACROLIMUS 1 MG CAP PO SCH (13:00)
[2021-11-18] MEDS ORDERED: TACROLIMUS 1 MG CAP PO ONE (13:15)
[2021-11-18 17:00] VITALS: BP 133/82
[2021-11-18 22:00] VITALS: BP 143/84
[2021-11-18] MEDS: TACROLIMUS 1 MG CAP PO SCH (22:47)
[2021-11-19 05:00] VITALS: BP 132/71
[2021-11-19] MEDS: SODIUM BICARBONATE 50ML VIAL 50 ML in SOD CHL 0.45% 1,000 ML IV SCH ×2 (06:30→16:39)
[2021-11-19] MEDS: BUMETANIDE 2.5mg/10ml (0.25 mg/ml) INJ IV SCH ×2 (06:50→17:13)
[2021-11-19] MEDS: SODIUM BICARBONATE 650 MG TAB PO SCH ×3 (06:50→21:41)
[2021-11-19] MEDS: InsuLIN REG 1unit/0.01ml Soln (100units/ml) SC SCH ×4 (06:51→22:00)
[2021-11-19] MEDS: ACCU-CHEK COMFORT CURVE STRIP VI SCH ×4 (06:51→22:03)
[2021-11-19] MEDS: hydrALAZINE HCL 25 MG TAB PO SCH ×3 (06:51→21:47)
[2021-11-19 08:31] LABS: Basophils # (auto) 0 10 ^3/uL (0-0.2); Eosinophils # (auto) 0.3 10 ^3/uL (0-0.8); Lymphocytes # (auto) 0.6 10 ^3/uL (0.4-5.4); Neutrophils # (auto) 4.8 10 ^3/uL (1.6-8.6); White Blood Cell 6.2 10^3/uL (4.4-10.8)
[2021-11-19 08:36] LABS: Basophils % (auto) 0.4 % (0.0-2.0); Eosinophils % (auto) 5.4 % (0.0-7.0); Hemoglobin 8.1 g/dL (13.5-17.5); Lymphocytes % (auto) 10.1 % (10.0-50.0); Mean Corpuscular Hemoglobin 30.7 pg (28.0-32.0); Mean Corpuscular Hgb Conc. 35.2 g/dL (32.0-36.0); Mean Corpuscular Volume 87.1 fL (80.0-100.0); Monocytes # (auto) 0.5 10 ^3/uL (0-1.3); Monocytes % (auto) 7.3 % (0.0-12.0); Neutrophils % (auto) 76.8 % (37.0-80.0); Red Blood Cells 2.64 10^6/uL (4.5-5.90); Red Cell Distribution Width 13.9 % (11.8-14.3)
[2021-11-19 08:53] LABS: Calcium 6.8 mg/dL (8.5-10.1); Potassium 4.4 mmol/L (3.5-5.1)
[2021-11-19 08:57] LABS: BUN/Creatinine Ratio 8.9; Bilirubin, Total 0.4 mg/dL (0.2-1.0); Total Protein 5.2 g/dL (6.4-8.2)
[2021-11-19 09:00] VITALS: BP 131/73
[2021-11-19] MEDS: ENOXAPARIN SOD 100 MG/1 ML SYRINGE SC SCH (09:12)
[2021-11-19] MEDS: CALCIUM ACETATE 667 MG CAP PO SCH ×3 (09:13→17:14)
[2021-11-19] MEDS: CALCITRIOL 0.25 MCG CAP PO SCH (09:13)
[2021-11-19] MEDS: NIFEdipine ER 30 MG TAB PO SCH (09:13)
[2021-11-19] MEDS: GABAPENTIN 300 MG CAP PO SCH ×2 (09:14→21:49)
[2021-11-19] MEDS: CALCIUM CARB 500 MG CHEW TAB PO SCH ×2 (09:14→21:52)
[2021-11-19] MEDS: B-COMPLEX W/ C & FOLIC ACID(NEPHROVITE TAB) PO SCH (09:14)
[2021-11-19] MEDS: PANTOPRAZOLE 40 MG/10 ML VIAL INJ IV SCH (09:14)
[2021-11-19] MEDS: FERROUS SULFATE 325mg EC TAB PO SCH ×3 (09:14→17:13)
[2021-11-19] MEDS: TACROLIMUS 1 MG CAP PO SCH ×2 (11:32→21:50)
[2021-11-19] MEDS: MYCOPHENOLATE 250 MG CAP PO SCH ×2 (11:32→21:48)
[2021-11-19 13:00] VITALS: BP 130/82
[2021-11-19 17:00] VITALS: BP 142/78
[2021-11-19 22:00] VITALS: BP 127/78
[2021-11-20] MEDS: SODIUM BICARBONATE 50ML VIAL 50 ML in SOD CHL 0.45% 1,000 ML IV SCH ×2 (03:30→13:05)
[2021-11-20 05:00] VITALS: BP 126/71
[2021-11-20] MEDS: BUMETANIDE 2.5mg/10ml (0.25 mg/ml) INJ IV SCH ×3 (06:00→17:02)
[2021-11-20] MEDS: SODIUM BICARBONATE 650 MG TAB PO SCH ×3 (06:12→21:13)
[2021-11-20] MEDS: hydrALAZINE HCL 25 MG TAB PO SCH ×3 (06:12→21:12)
[2021-11-20] MEDS: ACCU-CHEK COMFORT CURVE STRIP VI SCH ×4 (06:44→21:15)
[2021-11-20] MEDS: InsuLIN REG 1unit/0.01ml Soln (100units/ml) SC SCH ×4 (06:45→21:54)
[2021-11-20] MEDS ORDERED: SODIUM CHL 0.9% 1000 ML BAG XX ONE (07:00)
[2021-11-20 07:13] LABS: Basophils # (auto) 0 10 ^3/uL (0-0.2); Eosinophils # (auto) 0.4 10 ^3/uL (0-0.8); Hemoglobin 8.2 g/dL (13.5-17.5)
[2021-11-20 07:16] LABS: Basophils % (auto) 0.4 % (0.0-2.0); Hematocrit 23.4 % (41.0-53.0); Mean Corpuscular Hemoglobin 30.9 pg (28.0-32.0); Mean Corpuscular Hgb Conc. 35.1 g/dL (32.0-36.0); Monocytes # (auto) 0.5 10 ^3/uL (0-1.3); Monocytes % (auto) 6.3 % (0.0-12.0); Neutrophils # (auto) 6.3 10 ^3/uL (1.6-8.6); Neutrophils % (auto) 76.3 % (37.0-80.0); Nucleated Red Blood Cells % 0.1 %; Red Blood Cells 2.66 10^6/uL (4.5-5.90); Red Cell Distribution Width 14.3 % (11.8-14.3); White Blood Cell 8.3 10^3/uL (4.4-10.8)
[2021-11-20 07:38] LABS: Albumin 2.1 g/dL (3.4-5.0); Potassium 4.7 mmol/L (3.5-5.1)
[2021-11-20 07:41] LABS: BUN/Creatinine Ratio 9.4; Bilirubin, Total 0.3 mg/dL (0.2-1.0); Total Protein 5.6 g/dL (6.4-8.2)
[2021-11-20 09:00] VITALS: BP 135/79
[2021-11-20] MEDS: FERROUS SULFATE 325mg EC TAB PO SCH ×3 (09:29→17:04)
[2021-11-20] MEDS: CALCIUM ACETATE 667 MG CAP PO SCH ×3 (09:29→17:07)
[2021-11-20] MEDS: PANTOPRAZOLE 40 MG/10 ML VIAL INJ IV SCH (09:29)
[2021-11-20] MEDS: B-COMPLEX W/ C & FOLIC ACID(NEPHROVITE TAB) PO SCH (09:30)
[2021-11-20] MEDS: GABAPENTIN 300 MG CAP PO SCH (09:30)
[2021-11-20] MEDS: NIFEdipine ER 30 MG TAB PO SCH (09:30)
[2021-11-20] MEDS: CALCIUM CARB 500 MG CHEW TAB PO SCH ×2 (09:31→21:08)
[2021-11-20] MEDS: CALCITRIOL 0.25 MCG CAP PO SCH (09:31)
[2021-11-20] MEDS: ENOXAPARIN SOD 100 MG/1 ML SYRINGE SC SCH (09:31)
[2021-11-20] MEDS: MYCOPHENOLATE 250 MG CAP PO SCH ×2 (10:00→21:14)
[2021-11-20] MEDS: TACROLIMUS 1 MG CAP PO SCH ×2 (10:00→21:15)
[2021-11-20 13:00] VITALS: BP 142/75
[2021-11-20] MEDS ORDERED: EPOETIN ALFA-EPBX 10,000 UNIT/1ML VIAL SC ONE (21:00)
[2021-11-20] MEDS: APIXABAN 5 MG TAB PO SCH (21:08)
[2021-11-20 22:00] VITALS: BP 109/71
[2021-11-20] MEDS ORDERED: PATIENTS OWN MEDICATION (ELIQUIS 10 MG) PO SCH (22:00)
[2021-11-21] MEDS: SODIUM BICARBONATE 50ML VIAL 50 ML in SOD CHL 0.45% 1,000 ML IV SCH ×2 (00:30→11:00)
[2021-11-21 05:00] VITALS: BP 120/66
[2021-11-21] MEDS: SODIUM BICARBONATE 650 MG TAB PO SCH (05:09)
[2021-11-21] MEDS: BUMETANIDE 2.5mg/10ml (0.25 mg/ml) INJ IV SCH (05:09)
[2021-11-21] MEDS: hydrALAZINE HCL 25 MG TAB PO SCH (05:13)
[2021-11-21 05:45] LABS: Basophils # (auto) 0 10 ^3/uL (0-0.2); Basophils % (auto) 0.4 % (0.0-2.0); Eosinophils # (auto) 0.4 10 ^3/uL (0-0.8); Hemoglobin 8.2 g/dL (13.5-17.5); Mean Corpuscular Hemoglobin 30.7 pg (28.0-32.0); Mean Corpuscular Hgb Conc. 34.8 g/dL (32.0-36.0); Mean Corpuscular Volume 88.2 fL (80.0-100.0); Monocytes # (auto) 0.5 10 ^3/uL (0-1.3); Neutrophils # (auto) 5.2 10 ^3/uL (1.6-8.6)
[2021-11-21 05:52] LABS: Eosinophils % (auto) 6.3 % (0.0-7.0); Hematocrit 23.5 % (41.0-53.0); Lymphocytes # (auto) 0.7 10 ^3/uL (0.4-5.4); Lymphocytes % (auto) 9.9 % (10.0-50.0); Neutrophils % (auto) 76.4 % (37.0-80.0); Nucleated Red Blood Cells % 0.2 %; Red Blood Cells 2.66 10^6/uL (4.5-5.90); Red Cell Distribution Width 14.2 % (11.8-14.3); White Blood Cell 6.7 10^3/uL (4.4-10.8)
[2021-11-21] MEDS: InsuLIN REG 1unit/0.01ml Soln (100units/ml) SC SCH (06:03)
[2021-11-21] MEDS: ACCU-CHEK COMFORT CURVE STRIP VI SCH (06:03)
[2021-11-21 06:04] LABS: BUN/Creatinine Ratio 8.1; Calcium 7.7 mg/dL (8.5-10.1); Potassium 4.5 mmol/L (3.5-5.1)
[2021-11-21 09:00] VITALS: BP 124/74
[2021-11-21] MEDS: CALCIUM ACETATE 667 MG CAP PO SCH (09:22)
[2021-11-21] MEDS: B-COMPLEX W/ C & FOLIC ACID(NEPHROVITE TAB) PO SCH (09:23)
[2021-11-21] MEDS: NIFEdipine ER 30 MG TAB PO SCH (09:25)
[2021-11-21] MEDS: APIXABAN 5 MG TAB PO SCH (09:27)
[2021-11-21] MEDS: CALCITRIOL 0.25 MCG CAP PO SCH (09:27)
[2021-11-21] MEDS: FERROUS SULFATE 325mg EC TAB PO SCH (09:27)
[2021-11-21] MEDS: CALCIUM CARB 500 MG CHEW TAB PO SCH (09:28)
[2021-11-21] MEDS: MYCOPHENOLATE 250 MG CAP PO SCH (09:29)
[2021-11-21] MEDS: TACROLIMUS 1 MG CAP PO SCH (09:29)
[2021-11-21] MEDS: PANTOPRAZOLE 40 MG/10 ML VIAL INJ IV SCH (09:30)
[2021-11-21] MEDS ORDERED: GABAPENTIN 300 MG CAP PO SCH (10:00)
[2021-11-21] MEDS ORDERED: B-CO1TAB33 PO (10:22)
[2021-11-21] MEDS ORDERED: CALC667C5 PO (10:22)
[2021-11-21] MEDS ORDERED: APIX5TAB PO (10:22)
[2021-11-21 13:00] VITALS: BP 130/80
[2021-11-21 13:10] VITALS: BP 124/74
== END 2021-11-21 14:20 | disposition home or self-care (01) | DRG 425 ==
LOC: ER 12:58 → TELE 14:54 → TELE-WESTW 22:12
PROVIDERS: ADMIT Hospitalist; ATTEND Family Medicine
PROC: 05H933Z Insertion of Infusion Device into Right Brachial Vein, Percutaneous Approach (ICD-10-PCS; 2021-11-13)
PROC: B54MZZA Ultrasonography of Right Upper Extremity Veins, Guidance (ICD-10-PCS; 2021-11-13)
PROC: 05H933Z Insertion of Infusion Device into Right Brachial Vein, Percutaneous Approach (ICD-10-PCS; 2021-11-14)
PROC: B54MZZA Ultrasonography of Right Upper Extremity Veins, Guidance (ICD-10-PCS; 2021-11-14)
PROC: 0JH63XZ Insertion of Tunneled Vascular Access Device into Chest Subcutaneous Tissue and Fascia, Percutaneous Approach (ICD-10-PCS; principal; 2021-11-15)
PROC: 02HV33Z Insertion of Infusion Device into Superior Vena Cava, Percutaneous Approach (ICD-10-PCS; 2021-11-15)
PROC: B5181ZA Fluoroscopy of Superior Vena Cava using Low Osmolar Contrast, Guidance (ICD-10-PCS; 2021-11-15)
PROC: B548ZZA Ultrasonography of Superior Vena Cava, Guidance (ICD-10-PCS; 2021-11-15)
PROC: 5A1D70Z Performance of Urinary Filtration, Intermittent, Less than 6 Hours Per Day (ICD-10-PCS; 2021-11-15)
PROC: 5A1D70Z Performance of Urinary Filtration, Intermittent, Less than 6 Hours Per Day (ICD-10-PCS; 2021-11-18)
PROC: 5A1D70Z Performance of Urinary Filtration, Intermittent, Less than 6 Hours Per Day (ICD-10-PCS; 2021-11-20)
DX: E87.5 Hyperkalemia (principal); N17.0 Acute kidney failure with tubular necrosis; E43 Unspecified severe protein-calorie malnutrition; D69.6 Thrombocytopenia, unspecified; I12.0 Hypertensive chronic kidney disease with stage 5 chronic kidney disease or end stage renal disease; N18.6 End stage renal disease; D63.1 Anemia in chronic kidney disease; D69.59 Other secondary thrombocytopenia; E11.22 Type 2 diabetes mellitus with diabetic chronic kidney disease; K74.60 Unspecified cirrhosis of liver; I16.9 Hypertensive crisis, unspecified; M1A.9XX0 Chronic gout, unspecified, without tophus (tophi); Z20.822 Contact with and (suspected) exposure to COVID-19; E78.5 Hyperlipidemia, unspecified; G89.4 Chronic pain syndrome; Z79.82 Long term (current) use of aspirin; Z79.84 Long term (current) use of oral hypoglycemic drugs; Z94.4 Liver transplant status; Z91.19 Patient's noncompliance with other medical treatment and regimen; Z79.899 Other long term (current) drug therapy; Z83.3 Family history of diabetes mellitus; Z86.718 Personal history of other venous thrombosis and embolism; Z90.49 Acquired absence of other specified parts of digestive tract; Z99.2 Dependence on renal dialysis; Z68.32 Body mass index [BMI] 32.0-32.9, adult
CPT/HCPCS: 36415; 36600; 71045; 76705; 76942; 80048; 80053; 80061; 80074; 80197; 81001; 82270; 82306; 82550; 82728; 82805; 82962; 83036; 83615; 83690; 83735; 83880; 83970; 84100; 84132; 84443; 84484; 84550; 85025; 85379; 85610; 85652; 85730; 86141; 87040; 87086; 87340; 90935; 93005; 93306; 93970; 93971; 96361; 96365; 96375; 99152; 99153; C9113; G0378; J1642; J1815; J2001; J2250; J7507; J7517; Q9967

== ENCOUNTER → 2022-05-16 | Outpatient (CLI) | payer MEDICARE, MEDICAID ==
[~2022-05-16] MED LIST changes: +APIX5TAB PO; +B-CO1TAB33 PO; +CALC667C5 PO
[2022-05-16 11:21] LABS: Hemoglobin 8.3 g/dL (13.5-17.5); Red Cell Distribution Width 13.8 % (11.8-14.3)
[2022-05-16 11:22] LABS: Hematocrit 24.7 % (41.0-53.0); Mean Corpuscular Hemoglobin 32.6 pg (28.0-32.0); Mean Corpuscular Hgb Conc. 33.6 g/dL (32.0-36.0); Red Blood Cells 2.54 10^6/uL (4.5-5.90); White Blood Cell 5.2 10^3/uL (4.4-10.8)
[2022-05-16 11:26] LABS: Basophils % (manual) 0 (0.0-2.0); Blast Cells 0; Metamyelocytes % 0; Myelocytes % 0; Reactive Lymphocytes 0
[2022-05-16 11:52] LABS: Albumin 3.2 g/dL (3.4-5.0)
[2022-05-16 11:54] LABS: % Iron Saturation 75.7 % (20-55)
[2022-05-16 11:55] LABS: Urine Amorphous Crystal FEW /hpf (None Seen); Urine Bacteria NONE SEEN /hpf (None Seen); Urine Blood 1+ /uL (Negative); Urine Hyaline Cast FEW /lpf (0 - 2); Urine WBC 14 /hpf (0 - 3)
[2022-05-16 11:56] LABS: BUN/Creatinine Ratio 8.7; Bilirubin, Total 0.3 mg/dL (0.2-1.0); Total Protein 6.7 g/dL (6.4-8.2)
[2022-05-16 12:11] LABS: Free T4 (Free Thyroxine) 0.95 ng/dL (0.89-1.76)
[2022-05-16 12:12] LABS: Ferritin 865.4 ng/mL (10-322)
[2022-05-16 13:24] LABS: Potassium 5.9 mmol/L (3.5-5.1)
[2022-05-16 14:37] LABS: Band Neutrophils % (manual) 3; Eosinophils % (manual) 1 (0-7); Lymphocytes % (manual) 12 (10.0-50.0); Monocytes % (manual) 2 (0-12); Promyelocytes % 3
== END | disposition home or self-care (01) ==
LOC: LAB 10:53
PROVIDERS: ATTEND Student in an Organized Health Care Education/Training Program
DX: E11.9 Type 2 diabetes mellitus without complications (principal); D64.9 Anemia, unspecified; N39.0 Urinary tract infection, site not specified; I10 Essential (primary) hypertension
CPT/HCPCS: 36415; 80053; 81001; 82728; 83036; 83540; 83550; 84439; 84443; 85007; 85027; 87086

== ENCOUNTER → 2022-06-17 | Outpatient (CLI) | payer MEDICARE, MEDICAID ==
[2022-06-17 08:00] LABS: Basophils # (auto) 0 10 ^3/uL (0-0.2); Eosinophils # (auto) 0.1 10 ^3/uL (0-0.8); Hemoglobin 9.3 g/dL (13.5-17.5); Lymphocytes # (auto) 0.8 10 ^3/uL (0.4-5.4); Monocytes # (auto) 0.3 10 ^3/uL (0-1.3); Neutrophils # (auto) 3.3 10 ^3/uL (1.6-8.6); Red Cell Distribution Width 18.1 % (11.8-14.3); White Blood Cell 4.5 10^3/uL (4.4-10.8)
[2022-06-17 08:04] LABS: Basophils % (auto) 0.7 % (0.0-2.0); Eosinophils % (auto) 1.6 % (0.0-7.0); Hematocrit 27.3 % (41.0-53.0); Lymphocytes % (auto) 17.8 % (10.0-50.0); Mean Corpuscular Hemoglobin 37.7 pg (28.0-32.0); Mean Corpuscular Hgb Conc. 34.1 g/dL (32.0-36.0); Mean Corpuscular Volume 110.5 fL (80.0-100.0); Monocytes % (auto) 6.5 % (0.0-12.0); Neutrophils % (auto) 73.4 % (37.0-80.0); Nucleated Red Blood Cells % 0.1 %; Red Blood Cells 2.47 10^6/uL (4.5-5.90)
[2022-06-17 08:35] LABS: Albumin 3.5 g/dL (3.4-5.0); BUN/Creatinine Ratio 8.9; Bilirubin, Total 0.3 mg/dL (0.2-1.0); Calcium 8.6 mg/dL (8.5-10.1); Total Protein 6.8 g/dL (6.4-8.2)
[2022-06-17 08:39] LABS: Urine Bacteria FEW /hpf (None Seen); Urine Blood 1+ /uL (Negative); Urine Specific Gravity 1.015 (1.001-1.035); Urine WBC 23 /hpf (0 - 3)
[2022-06-17 09:23] LABS: Potassium 6.2 mmol/L (3.5-5.1)
== END | disposition home or self-care (01) ==
LOC: LAB 07:36
PROVIDERS: ATTEND Student in an Organized Health Care Education/Training Program
DX: E11.9 Type 2 diabetes mellitus without complications (principal)
CPT/HCPCS: 36415; 80053; 81001; 83036; 85025

== ENCOUNTER 2023-03-29 16:57 | Inpatient (IN) | payer MEDICARE, OTHER ==
[~2023-03-29] VITALS: Ht 177.8 cm; Wt 99.9 kg
[~2023-03-29 16:57] MED LIST changes: +HYDR-4297 PO; -HYDR50TA15 PO
[2023-03-29 18:12] LABS: Basophils # (auto) 0 10 ^3/uL (0-0.2); Basophils % (auto) 0.5 % (0.0-2.0); Eosinophils # (auto) 0 10 ^3/uL (0-0.8); Eosinophils % (auto) 0.3 % (0.0-7.0); Hematocrit 34.8 % (41.0-53.0); Hemoglobin 11.4 g/dL (13.5-17.5); Lymphocytes # (auto) 0.2 10 ^3/uL (0.4-5.4); Lymphocytes % (auto) 4.9 % (10.0-50.0); Mean Corpuscular Hgb Conc. 32.9 g/dL (32.0-36.0); Mean Corpuscular Volume 100.4 fL (80.0-100.0); Monocytes # (auto) 0.3 10 ^3/uL (0-1.3); Monocytes % (auto) 6.7 % (0.0-12.0); Neutrophils # (auto) 4.1 10 ^3/uL (1.6-8.6); Neutrophils % (auto) 87.6 % (37.0-80.0); Red Blood Cells 3.47 10^6/uL (4.5-5.90); Red Cell Distribution Width 16.7 % (11.8-14.3); White Blood Cell 4.7 10^3/uL (4.4-10.8)
[2023-03-29 18:21] LABS: Alanine Aminotransferase 24 U/L (7-40); Albumin 4.2 g/dL (3.2-4.8); Alkaline Phosphatase 75 U/L (46-116); Anion Gap 9 (5-15); Aspartate Aminotransferase 24 U/L (13-40); Blood Urea Nitrogen 66 mg/dL (9-23); Calcium 9.1 mg/dL (8.7-10.4); Carbon Dioxide 25 mmol/L (20-30); Chloride 100 mmol/L (98-107); Glucose 143 mg/dL (74-106); Potassium 4.6 mmol/L (3.5-5.1); Sodium 134 mmol/L (136-145)
[2023-03-29 18:22] LABS: Bilirubin, Total 0.9 mg/dL (0.2-1.0); Total Protein 7.3 g/dL (5.7-8.2)
[2023-03-29 18:29] VITALS: PULSE 89; RESP 22; O2SAT 94
[2023-03-29] MEDS ORDERED: VANCOMYCIN 1GM/250ML 250 ML IV ONE (18:30)
[2023-03-29] MEDS ORDERED: SODIUM CHLORIDE 0.9% 1,000 ML IV ONE ×3 (18:30)
[2023-03-29] MEDS ORDERED: PIPERACILLIN-TAZO 4.5GM 100 ML IV ONE (18:30)
[2023-03-29 19:08] LABS: Ovalocytes FEW; Stomatocytes Few; Tear Drop Cells FEW
[2023-03-29 19:10] LABS: Large Platelets FEW; Platelet Estimate Decrea
[2023-03-29 19:14] LABS: INR 1.14 (0.9-1.15); Prothrombin Time 11.9 sec (9.3-11.8)
[2023-03-29 19:30] VITALS: PULSE 120; RESP 24; O2SAT 91
[2023-03-29 19:30] LABS: Lactic Acid w/Reflex 6.4 mmol/L (0.4-2.0)
[2023-03-29] MEDS ORDERED: ACETAMINOPHEN 325 MG TAB PO ONE (20:00)
[2023-03-29] MEDS ORDERED: ACETAMINOPHEN 325 MG TAB PO PRN (20:30)
[2023-03-29] MEDS ORDERED: HYDROcodone-ACET 5/325MG TAB PO PRN (20:30)
[2023-03-29] MEDS ORDERED: VANCOMYCIN PER PHARMACY 0 MG IV SCH (20:30)
[2023-03-29] MEDS ORDERED: ONDANSETRON HCL 4 MG/2 ML VIAL IV PRN (20:30)
[2023-03-29] MEDS ORDERED: DOCUSATE SOD 100 MG CAP PO PRN (20:30)
[2023-03-29] MEDS ORDERED: cefTRIAXone 1GM/50ML D5W 50 ML IV SCH (20:37)
[2023-03-29 20:45] LABS: COVID19 ANTIGEN SOFIA FIA NEGATIVE (NEGATIVE)
[2023-03-29] MEDS ORDERED: DEXTROSE (50%) 50ML SYRG IV PRN (20:45)
[2023-03-29 20:49] LABS: Rapid Influenza A Negative (Negative); Rapid Influenza B Negative (Negative)
[2023-03-29 20:50] LABS: Respiratory Syncytial Virus Ag Negative
[2023-03-29] MEDS: SODIUM CHLOR 0.9% PF (SALINE LOCK) 10ML VIAL/SYR IV SCH (21:47)
[2023-03-29] MEDS: ACCU-CHEK COMFORT CURVE STRIP VI SCH (21:50)
[2023-03-29] MEDS: TACROLIMUS 1 MG CAP PO SCH (21:54)
[2023-03-29] MEDS: InsuLIN REG 1unit/0.01ml Soln (100units/ml) SC SCH (21:55)
[2023-03-29] MEDS ORDERED: MIDODRINE HCL 10 MG TAB ONE (22:13)
[2023-03-29] MEDS: MIDODRINE HCL 10 MG TAB PO SCH (22:14)
[2023-03-29] MEDS ORDERED: NOREPINEPHRINE 8 MG/250ML KIT 250 ML IV ONE (22:36)
[2023-03-29] MEDS ORDERED: MORPHINE SULFATE INJ 2 MG/ml SYRG IV PRN (22:45)
[2023-03-29] MEDS ORDERED: NITROGLYCERIN 0.4 MG SL TAB SL PRN (22:45)
[2023-03-29] MEDS: NOREPINEPHRINE 8 MG/250ML KIT 250 ML IV SCH (22:57)
[2023-03-30] VITALS (41 sets, daily range): BP systolic 84–134; BP diastolic 48–72; PULSE 54–66; RESP 8–21; TEMP 36.7; O2SAT 92–99
[2023-03-30 05:27] LABS: Basophils # (auto) 0 10 ^3/uL (0-0.2); Eosinophils # (auto) 0 10 ^3/uL (0-0.8); Hemoglobin 10.6 g/dL (13.5-17.5); Lymphocytes # (auto) 0.4 10 ^3/uL (0.4-5.4); Mean Corpuscular Hemoglobin 33.5 pg (28.0-32.0); Monocytes # (auto) 0.4 10 ^3/uL (0-1.3); Monocytes % (auto) 7.1 % (0.0-12.0); Neutrophils # (auto) 5.2 10 ^3/uL (1.6-8.6); White Blood Cell 6.1 10^3/uL (4.4-10.8)
[2023-03-30 05:28] LABS: Basophils % (auto) 0.8 % (0.0-2.0); Eosinophils % (auto) 0.1 % (0.0-7.0); Hematocrit 31.6 % (41.0-53.0); Lymphocytes % (auto) 6.6 % (10.0-50.0); Mean Corpuscular Hgb Conc. 33.5 g/dL (32.0-36.0); Neutrophils % (auto) 85.4 % (37.0-80.0); Red Blood Cells 3.16 10^6/uL (4.5-5.90)
[2023-03-30 05:45] LABS: Alanine Aminotransferase 20 U/L (7-40); Albumin 3.6 g/dL (3.2-4.8); Alkaline Phosphatase 65 U/L (46-116); Anion Gap 8 (5-15); Aspartate Aminotransferase 30 U/L (13-40); BUN/Creatinine Ratio 6.5 (10.0-20.0); Blood Urea Nitrogen 65 mg/dL (9-23); Calcium 8.2 mg/dL (8.7-10.4); Carbon Dioxide 27 mmol/L (20-30); Chloride 99 mmol/L (98-107); Glucose 132 mg/dL (74-106); Potassium 4.5 mmol/L (3.5-5.1); Sodium 134 mmol/L (136-145)
[2023-03-30 05:46] LABS: Bilirubin, Total 0.9 mg/dL (0.2-1.0); Total Protein 6.6 g/dL (5.7-8.2)
[2023-03-30] MEDS: SODIUM CHLOR 0.9% PF (SALINE LOCK) 10ML VIAL/SYR IV SCH ×3 (06:31→21:52)
[2023-03-30] MEDS: MIDODRINE HCL 10 MG TAB PO SCH ×3 (06:56→21:51)
[2023-03-30] MEDS: ACCU-CHEK COMFORT CURVE STRIP VI SCH ×4 (07:00→21:53)
[2023-03-30] MEDS: InsuLIN REG 1unit/0.01ml Soln (100units/ml) SC SCH ×4 (07:00→21:53)
[2023-03-30] MEDS: SEVELAMER 800 MG TAB PO SCH ×3 (08:00→18:42)
[2023-03-30 09:25] LABS: INR 1.17 (0.9-1.15); Partial Thromboplastin Time 28.2 SEC (24.5-34.5); Prothrombin Time 12.2 sec (9.3-11.8)
[2023-03-30 10:12] LABS: Triglycerides 119 mg/dL (< 150)
[2023-03-30 10:13] LABS: LDL Cholesterol 31 mg/dL (< 100)
[2023-03-30 10:14] LABS: Cholesterol 79 mg/dL (< 200); HDL Cholesterol 25 mg/dL (40-59)
[2023-03-30] MEDS: B-COMPLEX W/ C & FOLIC ACID(NEPHROVITE TAB) PO SCH (10:32)
[2023-03-30] MEDS: ASPirin 81 mg TAB PO SCH (10:32)
[2023-03-30] MEDS: TACROLIMUS 1 MG CAP PO SCH ×2 (10:33→21:51)
[2023-03-30] MEDS ORDERED: D5W 5% IV ONE (16:00)
[2023-03-30] MEDS ORDERED: VANCOMYCIN IV ONE (16:00)
[2023-03-30] MEDS ORDERED: cefTRIAXone 1GM/50ML D5W 50 ML IV ONE (17:30)
[2023-03-30] MEDS: NOREPINEPHRINE 8 MG/250ML KIT 250 ML IV SCH (22:45)
[2023-03-31] VITALS (74 sets, daily range): BP systolic 86–146; BP diastolic 50–76; PULSE 57–81; RESP 10–25; TEMP 98–98.9; O2SAT 92–99
[2023-03-31 04:17] LABS: Basophils # (auto) 0 10 ^3/uL (0-0.2); Eosinophils # (auto) 0.1 10 ^3/uL (0-0.8); Lymphocytes # (auto) 0.3 10 ^3/uL (0.4-5.4); Monocytes # (auto) 0.4 10 ^3/uL (0-1.3)
[2023-03-31 04:19] LABS: Basophils % (auto) 0.5 % (0.0-2.0); Eosinophils % (auto) 1.9 % (0.0-7.0); Hematocrit 29.2 % (41.0-53.0); Lymphocytes % (auto) 6.5 % (10.0-50.0); Mean Corpuscular Hemoglobin 33.3 pg (28.0-32.0); Mean Corpuscular Hgb Conc. 34.1 g/dL (32.0-36.0); Mean Corpuscular Volume 97.7 fL (80.0-100.0); Monocytes % (auto) 8.4 % (0.0-12.0); Neutrophils # (auto) 3.9 10 ^3/uL (1.6-8.6); Neutrophils % (auto) 82.7 % (37.0-80.0); Red Blood Cells 2.99 10^6/uL (4.5-5.90); Red Cell Distribution Width 16.6 % (11.8-14.3); White Blood Cell 4.7 10^3/uL (4.4-10.8)
[2023-03-31 04:39] LABS: Alanine Aminotransferase 26 U/L (7-40); Albumin 3.4 g/dL (3.2-4.8); Alkaline Phosphatase 60 U/L (46-116); Anion Gap 11 (5-15); Aspartate Aminotransferase 34 U/L (13-40); BUN/Creatinine Ratio 7.4 (10.0-20.0); Bilirubin, Total 0.5 mg/dL (0.2-1.0); Calcium 7.8 mg/dL (8.7-10.4); Carbon Dioxide 22 mmol/L (20-30); Chloride 97 mmol/L (98-107); Glucose 116 mg/dL (74-106); Phosphorus 4.4 mg/dL (2.4-5.1); Sodium 130 mmol/L (136-145); Total Protein 6.2 g/dL (5.7-8.2)
[2023-03-31 04:54] LABS: Blood Urea Nitrogen 78 mg/dL (9-23)
[2023-03-31 05:10] LABS: Uric Acid 8.5 mg/dL (3.7-9.2)
[2023-03-31 05:13] LABS: Bilirubin, Direct 0.2 mg/dL (<0.3)
[2023-03-31] MEDS: ACCU-CHEK COMFORT CURVE STRIP VI SCH ×4 (06:39→22:15)
[2023-03-31] MEDS: SODIUM CHLOR 0.9% PF (SALINE LOCK) 10ML VIAL/SYR IV SCH ×3 (06:39→21:30)
[2023-03-31] MEDS: MIDODRINE HCL 10 MG TAB PO SCH ×3 (06:40→22:15)
[2023-03-31] MEDS: InsuLIN REG 1unit/0.01ml Soln (100units/ml) SC SCH ×4 (06:41→22:21)
[2023-03-31] MEDS: SEVELAMER 800 MG TAB PO SCH ×3 (08:00→18:21)
[2023-03-31] MEDS ORDERED: SODIUM CHL 0.9% 1000 ML BAG XX ONE (09:00)
[2023-03-31] MEDS ORDERED: cefTRIAXone 1GM/50ML D5W 50 ML IV SCH (09:00)
[2023-03-31 10:05] LABS: Hepatitis B Surface Antigen Negative (Negative)
[2023-03-31 10:25] LABS: Hepatitis A Ab IgM Negative
[2023-03-31 10:26] LABS: Hepatitis B Core IgM Negative; Hepatitis C Antibody Negative (Negative)
[2023-03-31] MEDS: B-COMPLEX W/ C & FOLIC ACID(NEPHROVITE TAB) PO SCH (11:25)
[2023-03-31] MEDS: ASPirin 81 mg TAB PO SCH (11:25)
[2023-03-31] MEDS: TACROLIMUS 1 MG CAP PO SCH ×2 (11:29→22:15)
[2023-03-31 13:23] LABS: % Iron Saturation 18.8 % (20-55)
[2023-03-31] MEDS ORDERED: VANCOMYCIN 1GM/250ML 250 ML IV ONE (18:00)
[2023-03-31] MEDS ORDERED: CEFEPIME 2GM/50ML NS 50 ML IV ONE (20:00)
[2023-03-31] MEDS ORDERED: EPOETIN ALFA-EPBX 10,000 UNIT/1ML VIAL SC ONE (21:00)
[2023-03-31] MEDS: NOREPINEPHRINE 8 MG/250ML KIT 250 ML IV SCH (22:45)
[2023-04-01] VITALS (37 sets, daily range): BP systolic 97–169; BP diastolic 48–74; PULSE 52–64; RESP 8–19; TEMP 98–98.9; O2SAT 92–99
[2023-04-01 04:45] LABS: Anion Gap 8 (5-15); Carbon Dioxide 28 mmol/L (20-30); Chloride 104 mmol/L (98-107); Sodium 140 mmol/L (136-145)
[2023-04-01 04:47] LABS: Calcium 7.9 mg/dL (8.5-10.1)
[2023-04-01 04:52] LABS: BUN/Creatinine Ratio 6.1 (10.0-20.0); Glucose 94 mg/dL (74-106)
[2023-04-01 04:58] LABS: Blood Urea Nitrogen 46 mg/dL (9-23)
[2023-04-01] MEDS: SODIUM CHLOR 0.9% PF (SALINE LOCK) 10ML VIAL/SYR IV SCH ×3 (06:22→21:41)
[2023-04-01] MEDS: MIDODRINE HCL 10 MG TAB PO SCH ×3 (06:26→21:39)
[2023-04-01] MEDS: ACCU-CHEK COMFORT CURVE STRIP VI SCH ×4 (06:27→21:40)
[2023-04-01] MEDS: InsuLIN REG 1unit/0.01ml Soln (100units/ml) SC SCH ×4 (06:27→21:41)
[2023-04-01] MEDS: SEVELAMER 800 MG TAB PO SCH ×3 (08:00→18:21)
[2023-04-01] MEDS: ASPirin 81 mg TAB PO SCH (10:06)
[2023-04-01] MEDS: CEFEPIME 2GM/50ML NS 50 ML IV SCH (10:06)
[2023-04-01] MEDS: B-COMPLEX W/ C & FOLIC ACID(NEPHROVITE TAB) PO SCH (10:06)
[2023-04-01] MEDS: TACROLIMUS 1 MG CAP PO SCH ×2 (10:08→21:39)
[2023-04-01 10:24] LABS: INR 1.11 (0.9-1.15); Partial Thromboplastin Time 32.6 SEC (24.5-34.5); Prothrombin Time 11.6 sec (9.3-11.8)
[2023-04-01] MEDS ORDERED: LIDOCAINE 1% (LOCAL ANESTH.) PF 5ml SDV ID ONE (13:30)
[2023-04-01] MEDS: NOREPINEPHRINE 8 MG/250ML KIT 250 ML IV SCH (22:45)
[2023-04-02] VITALS (16 sets, daily range): BP systolic 109–143; BP diastolic 49–81; PULSE 51–76; RESP 10–20; TEMP 98–98.9; O2SAT 90–98
[2023-04-02 04:28] LABS: Basophils # (auto) 0 10 ^3/uL (0-0.2); Eosinophils # (auto) 0.2 10 ^3/uL (0-0.8); Lymphocytes # (auto) 0.6 10 ^3/uL (0.4-5.4); Monocytes # (auto) 0.2 10 ^3/uL (0-1.3); Neutrophils # (auto) 1.8 10 ^3/uL (1.6-8.6); Nucleated Red Blood Cells % 0.1 %; White Blood Cell 2.8 10^3/uL (4.4-10.8)
[2023-04-02 04:30] LABS: Basophils % (auto) 0.7 % (0.0-2.0); Eosinophils % (auto) 5.4 % (0.0-7.0); Hematocrit 30.2 % (41.0-53.0); Lymphocytes % (auto) 21.9 % (10.0-50.0); Mean Corpuscular Volume 99.8 fL (80.0-100.0); Monocytes % (auto) 8.5 % (0.0-12.0); Neutrophils % (auto) 63.5 % (37.0-80.0); Red Blood Cells 3.02 10^6/uL (4.5-5.90); Red Cell Distribution Width 16.8 % (11.8-14.3)
[2023-04-02 04:54] LABS: Alanine Aminotransferase 26 U/L (7-40); Albumin 3.4 g/dL (3.2-4.8); Alkaline Phosphatase 66 U/L (46-116); Anion Gap 8 (5-15); Aspartate Aminotransferase 29 U/L (13-40); BUN/Creatinine Ratio 5.6 (10.0-20.0); Blood Urea Nitrogen 49 mg/dL (9-23); Calcium 7.7 mg/dL (8.7-10.4); Carbon Dioxide 25 mmol/L (20-30); Chloride 103 mmol/L (98-107); Glucose 97 mg/dL (74-106); Potassium 4.3 mmol/L (3.5-5.1); Sodium 136 mmol/L (136-145)
[2023-04-02 04:55] LABS: Bilirubin, Total 0.3 mg/dL (0.2-1.0)
[2023-04-02] MEDS: SODIUM CHLOR 0.9% PF (SALINE LOCK) 10ML VIAL/SYR IV SCH ×3 (06:12→22:00)
[2023-04-02] MEDS: InsuLIN REG 1unit/0.01ml Soln (100units/ml) SC SCH ×4 (06:12→22:00)
[2023-04-02] MEDS: MIDODRINE HCL 10 MG TAB PO SCH ×3 (06:12→22:33)
[2023-04-02] MEDS: ACCU-CHEK COMFORT CURVE STRIP VI SCH ×4 (06:12→22:00)
[2023-04-02] MEDS ORDERED: SODIUM CHL 0.9% 1000 ML BAG XX ONE (07:00)
[2023-04-02] MEDS: SEVELAMER 800 MG TAB PO SCH ×3 (08:00→18:01)
[2023-04-02] MEDS: ASPirin 81 mg TAB PO SCH (10:00)
[2023-04-02] MEDS: B-COMPLEX W/ C & FOLIC ACID(NEPHROVITE TAB) PO SCH (10:00)
[2023-04-02] MEDS ORDERED: ADENOSINE 78 MG in GIVE UN-DILUTED 0 ML IV ONE (11:00)
[2023-04-02] MEDS: CEFEPIME 2GM/50ML NS 50 ML IV SCH (11:25)
[2023-04-02] MEDS: TACROLIMUS 1 MG CAP PO SCH ×2 (11:25→22:34)
[2023-04-02] MEDS ORDERED: VANCOMYCIN 1GM/250ML 250 ML IV ONE (16:00)
[2023-04-02] MEDS ORDERED: EPOETIN ALFA-EPBX 10,000 UNIT/1ML VIAL SC ONE (21:00)
[2023-04-03 05:09] VITALS: BP 125/63; PULSE 57; RESP 16; TEMP 98; O2SAT 94
[2023-04-03] MEDS: MIDODRINE HCL 10 MG TAB PO SCH ×3 (05:35→21:42)
[2023-04-03] MEDS: SODIUM CHLOR 0.9% PF (SALINE LOCK) 10ML VIAL/SYR IV SCH ×3 (05:36→21:42)
[2023-04-03] MEDS: ACCU-CHEK COMFORT CURVE STRIP VI SCH ×4 (05:36→22:00)
[2023-04-03] MEDS: InsuLIN REG 1unit/0.01ml Soln (100units/ml) SC SCH ×4 (05:39→21:53)
[2023-04-03 09:00] VITALS: BP 119/59; PULSE 53; RESP 19; TEMP 97.7; O2SAT 98
[2023-04-03] MEDS: B-COMPLEX W/ C & FOLIC ACID(NEPHROVITE TAB) PO SCH (09:26)
[2023-04-03] MEDS: CEFEPIME 2GM/50ML NS 50 ML IV SCH (09:26)
[2023-04-03] MEDS: SEVELAMER 800 MG TAB PO SCH ×3 (09:26→17:44)
[2023-04-03] MEDS: ASPirin 81 mg TAB PO SCH (09:27)
[2023-04-03] MEDS: TACROLIMUS 1 MG CAP PO SCH ×2 (09:38→21:43)
[2023-04-03 13:00] VITALS: BP 137/80; PULSE 67; RESP 19; TEMP 98.2; O2SAT 100
[2023-04-03 16:49] VITALS: BP 144/85; PULSE 60; RESP 18; TEMP 98.1; O2SAT 100
[2023-04-03 20:00] VITALS: PULSE 72; RESP 18; O2SAT 93
[2023-04-03 22:00] VITALS: BP 117/72; PULSE 63; RESP 18; TEMP 98.1; O2SAT 93
[2023-04-04 05:00] VITALS: BP 127/60; PULSE 62; RESP 18; TEMP 98.3; O2SAT 99
[2023-04-04] MEDS: SODIUM CHLOR 0.9% PF (SALINE LOCK) 10ML VIAL/SYR IV SCH ×3 (05:07→21:17)
[2023-04-04] MEDS: ACCU-CHEK COMFORT CURVE STRIP VI SCH ×4 (05:08→21:17)
[2023-04-04] MEDS: InsuLIN REG 1unit/0.01ml Soln (100units/ml) SC SCH ×4 (05:08→21:32)
[2023-04-04] MEDS: MIDODRINE HCL 10 MG TAB PO SCH ×3 (05:08→21:17)
[2023-04-04] MEDS ORDERED: SODIUM CHL 0.9% 1000 ML BAG XX ONE (06:15)
[2023-04-04 09:00] VITALS: BP 139/78; PULSE 60; RESP 14; TEMP 98.2; O2SAT 100
[2023-04-04] MEDS: ASPirin 81 mg TAB PO SCH (09:39)
[2023-04-04] MEDS: SEVELAMER 800 MG TAB PO SCH ×3 (09:39→17:47)
[2023-04-04] MEDS: B-COMPLEX W/ C & FOLIC ACID(NEPHROVITE TAB) PO SCH (09:39)
[2023-04-04] MEDS: CEFEPIME 2GM/50ML NS 50 ML IV SCH (09:40)
[2023-04-04] MEDS: TACROLIMUS 1 MG CAP PO SCH ×2 (09:48→21:17)
[2023-04-04 13:00] VITALS: BP 130/71; PULSE 72; RESP 14; TEMP 97.6; O2SAT 98
[2023-04-04 17:00] VITALS: BP 143/63; PULSE 61; RESP 14; TEMP 97.8; O2SAT 96
[2023-04-04 20:00] VITALS: PULSE 63; RESP 18
[2023-04-04] MEDS ORDERED: EPOETIN ALFA-EPBX 10,000 UNIT/1ML VIAL SC ONE (21:00)
[2023-04-04 22:00] VITALS: BP 109/63; PULSE 60; RESP 18; TEMP 98.1; O2SAT 97
[2023-04-05 05:10] VITALS: BP 112/58; PULSE 58; RESP 18; TEMP 98; O2SAT 97
[2023-04-05] MEDS: MIDODRINE HCL 10 MG TAB PO SCH ×2 (05:38→11:54)
[2023-04-05] MEDS: SODIUM CHLOR 0.9% PF (SALINE LOCK) 10ML VIAL/SYR IV SCH ×2 (05:38→11:54)
[2023-04-05] MEDS: InsuLIN REG 1unit/0.01ml Soln (100units/ml) SC SCH ×2 (05:51→11:30)
[2023-04-05] MEDS: ACCU-CHEK COMFORT CURVE STRIP VI SCH ×2 (05:51→11:30)
[2023-04-05 08:00] VITALS: PULSE 55; RESP 18; O2SAT 98
[2023-04-05 09:00] VITALS: BP 140/81; PULSE 62; RESP 18; TEMP 98.1; O2SAT 98
[2023-04-05] MEDS: CEFEPIME 2GM/50ML NS 50 ML IV SCH (09:19)
[2023-04-05] MEDS: TACROLIMUS 1 MG CAP PO SCH (09:27)
[2023-04-05] MEDS: B-COMPLEX W/ C & FOLIC ACID(NEPHROVITE TAB) PO SCH (09:27)
[2023-04-05] MEDS: SEVELAMER 800 MG TAB PO SCH ×2 (09:27→11:54)
[2023-04-05] MEDS: ASPirin 81 mg TAB PO SCH (09:27)
[2023-04-05 11:33] VITALS: BP 140/81; PULSE 62; RESP 18; TEMP 98.1; O2SAT 98
== END 2023-04-05 12:30 | disposition home health service (06) | DRG 871 ==
LOC: ER 16:57 → TELE 22:41 → ICU WEST 03-30 14:14 → TELE-CENTR 04-02 12:17
PROVIDERS: ADMIT Nurse Practitioner Family; ATTEND Family Medicine
PROC: 5A1D70Z Performance of Urinary Filtration, Intermittent, Less than 6 Hours Per Day (ICD-10-PCS; principal; 2023-03-31)
PROC: 5A1D70Z Performance of Urinary Filtration, Intermittent, Less than 6 Hours Per Day (ICD-10-PCS; 2023-04-02)
PROC: 5A1D70Z Performance of Urinary Filtration, Intermittent, Less than 6 Hours Per Day (ICD-10-PCS; 2023-04-04)
DX: A41.9 Sepsis, unspecified organism (principal); I21.A1 Myocardial infarction type 2; J18.9 Pneumonia, unspecified organism; N18.6 End stage renal disease; R65.21 Severe sepsis with septic shock; D68.59 Other primary thrombophilia; I12.0 Hypertensive chronic kidney disease with stage 5 chronic kidney disease or end stage renal disease; J90 Pleural effusion, not elsewhere classified; K72.90 Hepatic failure, unspecified without coma; Z20.822 Contact with and (suspected) exposure to COVID-19; E11.22 Type 2 diabetes mellitus with diabetic chronic kidney disease; D69.6 Thrombocytopenia, unspecified; D63.1 Anemia in chronic kidney disease; B97.4 Respiratory syncytial virus as the cause of diseases classified elsewhere; B95.2 Enterococcus as the cause of diseases classified elsewhere; E11.65 Type 2 diabetes mellitus with hyperglycemia; E78.5 Hyperlipidemia, unspecified; E87.5 Hyperkalemia; K74.60 Unspecified cirrhosis of liver; Z76.82 Awaiting organ transplant status; Z83.3 Family history of diabetes mellitus; Z86.718 Personal history of other venous thrombosis and embolism; Z99.2 Dependence on renal dialysis; I49.5 Sick sinus syndrome
CPT/HCPCS: 36415; 71045; 71046; 80048; 80053; 80061; 80074; 80076; 80197; 80202; 82248; 82728; 82962; 83036; 83540; 83550; 83605; 83690; 83880; 84100; 84443; 84484; 84550; 85025; 85610; 85730; 87040; 87077; 87081; 87186; 87426; 87804; 87807; 90935; 93005; 93306; 96361; 96365; 96366; 96367; 99291; G0378; J0153; J0692; J0696; J1642; J1815; J2543; J7060; J7507

== ENCOUNTER → 2023-07-04 | Outpatient (CLI) | payer MEDICARE, OTHER ==
[2023-07-04 12:48] LABS: Basophils # (auto) 0 10 ^3/uL (0-0.2); Basophils % (auto) 0.7 % (0.0-2.0); Eosinophils # (auto) 0.2 10 ^3/uL (0-0.8); Eosinophils % (auto) 4.8 % (0.0-7.0); Hematocrit 31.3 % (41.0-53.0); Lymphocytes # (auto) 0.7 10 ^3/uL (0.4-5.4); Mean Corpuscular Hemoglobin 29.6 pg (28.0-32.0); Mean Corpuscular Volume 92.6 fL (80.0-100.0); Monocytes # (auto) 0.4 10 ^3/uL (0-1.3); Monocytes % (auto) 7.5 % (0.0-12.0); Neutrophils # (auto) 3.6 10 ^3/uL (1.6-8.6); Red Blood Cells 3.38 10^6/uL (4.5-5.90); Red Cell Distribution Width 17.1 % (11.8-14.3)
[2023-07-04 12:53] LABS: Urine Bacteria NONE SEEN /hpf (None Seen); Urine Blood 1+ /uL (Negative); Urine Clarity HAZY (Clear); Urine Color Yellow (Yellow); Urine Protein, UAD 3+ (Negative); Urine Specific Gravity 1.016 (1.001-1.035); Urine Urobilinogen Normal (Negative); Urine WBC 1 /hpf (0 - 3); Urine pH 6.5 (5.0-8.0)
[2023-07-04 13:12] LABS: Alanine Aminotransferase 11 U/L (7-40); Albumin 3.6 g/dL (3.2-4.8); Alkaline Phosphatase 88 U/L (46-116); Anion Gap 12 (5-15); Aspartate Aminotransferase 16 U/L (13-40); BUN/Creatinine Ratio 6.2 (10.0-20.0); Bilirubin, Total 0.3 mg/dL (0.2-1.0); Blood Urea Nitrogen 48 mg/dL (9-23); Carbon Dioxide 26 mmol/L (20-30); Chloride 105 mmol/L (98-107); Cholesterol 97 mg/dL (< 200); Glucose 143 mg/dL (74-106); HDL Cholesterol 35 mg/dL (40-59); LDL Cholesterol 52 mg/dL (< 100); Potassium 3.8 mmol/L (3.5-5.1); Sodium 143 mmol/L (136-145); Total Protein 6.4 g/dL (5.7-8.2); Triglycerides 74 mg/dL (< 150)
== END | disposition home or self-care (01) ==
LOC: LAB 12:12
PROVIDERS: ATTEND Student in an Organized Health Care Education/Training Program
DX: E11.9 Type 2 diabetes mellitus without complications (principal); I10 Essential (primary) hypertension
CPT/HCPCS: 36415; 80053; 80061; 81001; 83036; 85025

== ENCOUNTER → 2024-02-03 | Outpatient (CLI) | payer MEDICARE, OTHER ==
[~2024-02-03] MED LIST changes: -FEBU80TA3 PO; +FEBU80TA6 PO; -HYDR-4297 PO; +HYDR50TA47 PO
[2024-02-03 11:37] LABS: Urine Bacteria FEW /hpf (None Seen); Urine Blood 2+ /uL (Negative); Urine Clarity Turbid (Clear); Urine Color Yellow (Yellow); Urine Protein, UAD 3+ (Negative); Urine Specific Gravity 1.018 (1.001-1.035); Urine Urobilinogen Normal (Negative); Urine WBC 302 /hpf (0 - 3); Urine WBC Clumps PRESENT /hpf (None Seen); Urine pH 6.5 (5.0-9.0)
[2024-02-03 12:10] LABS: Alanine Aminotransferase 16 U/L (7-40); Albumin 3.4 g/dL (3.2-4.8); Alkaline Phosphatase 91 U/L (46-116); Anion Gap 10 (5-15); Aspartate Aminotransferase 14 U/L (13-40); BUN/Creatinine Ratio 4.8 (10.0-20.0); Bilirubin, Total 0.2 mg/dL (0.2-1.0); Blood Urea Nitrogen 59 mg/dL (9-23); Calcium 7.7 mg/dL (8.7-10.4); Carbon Dioxide 29 mmol/L (20-30); Chloride 101 mmol/L (98-107); Cholesterol 102 mg/dL (< 200); Glucose 162 mg/dL (74-106); HDL Cholesterol 39 mg/dL (40-59); LDL Cholesterol 51 mg/dL (< 100); Potassium 4.8 mmol/L (3.5-5.1); Sodium 140 mmol/L (136-145); Triglycerides 60 mg/dL (< 150)
== END | disposition home or self-care (01) ==
LOC: LAB 10:53
PROVIDERS: ATTEND Student in an Organized Health Care Education/Training Program
DX: I10 Essential (primary) hypertension (principal); E11.9 Type 2 diabetes mellitus without complications
CPT/HCPCS: 36415; 80053; 80061; 81001; 83036

== ENCOUNTER 2024-07-26 13:19 | Inpatient (IN) | payer MEDICARE, OTHER ==
[~2024-07-26] VITALS: Ht 172.7 cm; Wt 101.6 kg
--- NOTE | 2024-07-26 14:11 | ED.PDOC ---
Eye-HPI HPI Comments 64 y.o male with PMHx of DM, HTN, Hyperlipidemia, ESRD, Dialysis, presents to the ED for a chief complaint of bilateral ear hearing loss and dizziness that started 4 days ago. Patient reports hearing loss first presented on the left ear and now presents minimally to the right one with dizziness described as room spinning. Patient denies any ear discharge, ringing, vomiting, head injuries, chest pain, SOB. Patient gets dialyzed at home. Chief Complaint: Dizziness Time Seen by MD: 14:00 Primary Care Provider: SANJUANITA Reviewed Notes: Nurses Notes, Medications, Allergies Allergies: Coded Allergies: NO KNOWN ALLERGIES (Unverified , 07/22/19) Home Meds Active Scripts Apixaban Base (ELIQUIS) 5 Mg Tab, 10 MG PO BID for 7 Days, #14 TAB 10MG BID X 7 DAYS THEN 5MG PO BID FOR AT LEAST 6 MONTHS FOR DVT/PE TREATMENT Prov:JOANN MCGEE MD 11/21/21 Apixaban Base (ELIQUIS) 5 Mg Tab, 5 MG PO BID, #180 TAB Prov:JOANN MCGEE MD 11/21/21 Apixaban Base (ELIQUIS) 5 Mg Tab, 5 MG PO BID, #180 TAB Prov:JOANN MCGEE MD 11/21/21 Calcium Acetate (PHOSLO CAPSULE) 667 Mg Cp, 2 CAP PO TID, #180 CAP 5 Refills Prov:JOANN MCGEE MD 11/21/21 B-Complex W/ C & Folic Acid (Nephro-Steve Rx) 1 Tab Tb, 1 TAB PO DAILY, #90 TAB Prov:JOANN MCGEE MD 11/21/21 Ferrous Sulfate (Iron) 325 Mg Tab, 325 MG PO BID, #180 TAB Prov:JOANN MCGEE MD 08/08/21 Pantoprazole Sodium Sesquihydr (Protonix) 40 Mg Tab, 40 MG PO DAILY for 14 Days, #14 TAB Prov:TINY VILLA MD 02/15/20 Blood Glucose Monitoring Suppl (D-Care Glucometer Kit/Glu W/Device) 1 Kit Kit, KIT XX, #1 Prov:LENORA IRWIN MD 08/22/19 Aspirin (Aspir-Low Ec) 81 Mg Tb, 1 TAB PO DAILY, #30 TAB 3 Refills Prov:LENORA IRWIN MD 08/22/19 Sitagliptin Phosphate (Januvia) 50 Mg Tab, 1 TAB PO DAILY, #30 TAB 5 Refills Prov:LENORA IRWIN MD 08/22/19 Reported Medications Calcitriol (Calcitriol) 0.5 Mcg Cap, 1 CAP PO DAILY 05/25/21 Gabapentin (Gabapentin) 100 Mg Cap, 3 CAP PO TID 05/25/21 Fludrocortisone Acetate (Fludrocortisone Acetate) 0.1 Mg Tab, 1 TAB PO DAILY 05/25/21 Calcium Carbonate (Antacid) (Gnp Antacid) 500 Mg Chw, 1 TAB PO BID 05/25/21 Sodium Bicarbonate (Sodium Bicarbonate) 650 Mg Tab, 1 TAB PO DAILY 05/25/21 Hydralazine Hcl (Hydralazine Hcl) 50 Mg Tab, 1 TAB PO BID 05/25/21 Losartan Potassium (Losartan Potassium) 25 Mg Tab, 1 TAB PO HS 05/25/21 Tacrolimus (Tacrolimus) 1 Mg Cap, 0 PO UD TAKE 5 CAPS PO QAM & 4 CAPS PO QPM 09/29/20 Amlodipine Besylate (NORVASC TABLET) 5 Mg Tb, 1 TAB PO DAILY 09/29/20 Febuxostat (Febuxostat) 80 Mg Tab, 80 MG PO QAM 09/29/20 Mycophenolate Mofetil (Mycophenolate Mofetil) 250 Mg Cap, 250 MG PO BID 09/29/20 Cholecalciferol (D3 Maximum Strength) 5,000 Unit Cap, 5000 UNIT PO DAILY, CAP 08/15/19 Information Source: Patient Mode of Arrival: Ambulatory Timing: Days (4) Duration: Since onset Quality: Hearing loss Onset: Spontaneous Past Medical History PAST MEDICAL HISTORY: DM, ESRD, Gout, High Lipids, HTN, Liver Surgical History (Other): liver transplant, left upper arm catheter and LLQ port Family History Family History: Reviewed,noncontributory to illness, No family hx of Heart elvin, Family hx of DM, Family hx of HTN Social History Smoker: Non-Smoker Alcohol: Denies ETOH Use Drugs: Denies Drug Use Lives In: Home Constitutional: denies: chills, diaphoresis, fatigue, fever, malaise, sweats, weakness, others EENTM: reports: hearing loss; denies: blurred vision, double vision, ear bleeding, ear discharge, ear drainage, ear pain, ear ringing, eye pain, eye redness, mouth pain, mouth swelling, nasal discharge, nose bleeding, nose congestion, nose pain, photophobia, tearing, throat pain, throat swelling, voice changes, others Respiratory: denies: cough, hemoptysis, orthopnea, SOB at rest, shortness of breath, SOB with excertion, stridor, wheezing, others Cardiovascular: denies: chest pain, dizzy spells, diaphoresis, Dyspnea on exertion, edema, irregular heart beat, left arm pain, lightheadedness, palpitations, PND, syncope, others Gastrointestinal: denies: abdomen distended, abdominal pain, blood streaked bowels, constipated, diarrhea, dysphagia, difficulty swallowing, hematemesis, melena, nausea, poor appetite, poor fluid intake, rectal bleeding, rectal pain, vomiting, others Genitourinary: denies: burning, dysuria, flank pain, frequency, hematuria, incontinence, penile discharge, penile sore, pain, testicle pain, testicle swelling, urgency, others Neurological: reports: dizziness; denies: fainting, headache, left sided numbness, left sided weakness, numbness, paresthesia, pre-existing deficit, right sided numbness, right sided weakness, seizure, speech problems, tingling, tremors, weakness, others Musculoskeletal: denies: back pain, gout, joint pain, joint swelling, muscle pain, muscle stiffness, neck pain, others Integumetry: denies: bruises, change in color, change in hair/nails, dryness, laceration, lesions, lumps, rash, wounds, others Allergic/Immunocompromised: denies: Difficulty Healing, Frequent Infections, Hives, Itching, others Hematologic/Lymphatic: denies: anemia, blood clots, easy bleeding, easy bruising, swollen glands, others Endocrine: denies: excessive hunger, excessive sweating, excessive thirst, excessive urination, flushing, intolerance to cold, intolerance to heat, unexplained weight gain, unexplained weight loss, others Psychiatric: denies: anxiety, bipolar disorder, depression, hopeless, panic disorder, schizophrenia, sleepless, suicidal, others All Other Systems: Reviewed and Negative Physical Exam General Appearance: Moderate Distress HEENT: Normal ENT Inspection, Pharynx Normal, TMs Normal Neck: Full Range of Motion, Non-Tender, Normal, Normal Inspection Respiratory: Chest Non-Tender, Lungs Clear, No Accessory Muscle Use, No Respiratory Distress, Normal Breath Sounds Cardiovascular: No Edema, No JVD, No Murmur, No Gallop, Normal Peripheral Pulses, Regular Rate/Rhythm Breast Exam: Deferred Gastrointestinal: No Organomegaly, Non Tender, No Pulsatile Mass, Normal Bowel Sounds, Soft Genitalia: Deferred Pelvic: Deferred Rectal: Deferred Extremities: No calf tenderness, Normal capillary refill, No pedal edema Musculoskeletal : Apperance: Normal Neurologic: Alert, 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 Was a procedure done?: No EENT DIFF Eye: N/A Ear: Cerumen Impaction, Otitis Externa, Barotrauma, Otitis Media, Perforation, Sinusitis X-Ray, Labs, Meds, VS Vital Signs Date Time Temp Pulse Resp B/P (MAP) Pulse Ox O2 Delivery O2 Flow Rate FiO2 07/26/24 13:36 54 07/26/24 13:27 97.3 56 20 132/74 (93) 100 Lab Test 07/26/24 14:25 07/26/24 13:32 Range/Units White Blood Count 5.6 4.4-10.8 10^3/uL Red Blood Count 3.60 L 4.5-5.90 10^6/uL Hemoglobin 11.5 L 13.5-17.5 g/dL Hematocrit 34.6 L 41.0-53.0 % Mean Corpuscular Volume 96.4 80.0-100.0 fL Mean Corpuscular Hemoglobin 32.0 28.0-32.0 pg Mean Corpuscular Hemoglobin Concent 33.2 32.0-36.0 g/dL Red Cell Distribution Width 16.5 H 11.8-14.3 % Platelet Count 89 L 140-450 10^3/uL Mean Platelet Volume 8.7 6.9-10.8 fL Neutrophils (%) (Auto) 68.8 37.0-80.0 % Lymphocytes (%) (Auto) 19.2 10.0-50.0 % Monocytes (%) (Auto) 5.1 0.0-12.0 % Eosinophils (%) (Auto) 6.0 0.0-7.0 % Basophils (%) (Auto) 0.9 0.0-2.0 % Neutrophils # (Auto) 3.8 1.6-8.6 10 ^3/uL Lymphocytes # (Auto) 1.1 0.4-5.4 10 ^3/uL Monocytes # (Auto) 0.3 0-1.3 10 ^3/uL Eosinophils # (Auto) 0.3 0-0.8 10 ^3/uL Basophils # (Auto) 0 0-0.2 10 ^3/uL Nucleated Red Blood Cells 0.0 % Sodium Level 138 136-145 mmol/L Potassium Level 4.1 3.5-5.1 mmol/L Chloride Level 100 98-107 mmol/L Carbon Dioxide Level 33 H 20-31 mmol/L Anion Gap 5 5-15 Blood Urea Nitrogen 50 H 9-23 mg/dL Creatinine 9.48 H 0.700-1.30 mg/dL Glomerular Filtration Rate Calc 6 >90 mL/min BUN/Creatinine Ratio 5.3 L 10.0-20.0 Serum Glucose 152 H 74-106 mg/dL Calcium Level 8.5 L 8.7-10.4 mg/dL POC Glucose 131 H 70-106 mg/dl CT scan of the head is negative The CBC shows anemia with a hemoglobin of 11.5 hematocrit of 34.6 The chemistry panel shows a BUN of 50 and a creatinine of 9.48 We did check the patient's years and sign your impaction At this time, the patient was being admitted to the hospitalist The patient continues to have autonomic dysfunction. An IV Hep-Lock was established. Images Reviewed?: Images reviewed and evaluated by me Time of 1ST Reevaluation: 14:07 Reevaluation 1ST: Unchanged Patient Education/Counseling: Diagnosis, Treatment, Prognosis Family Education/Counseling: No Family Present Departure 1 Departure Time of Disposition: 15:28 Impression: Primary Impression: Autonomic dysfunction Additional Impression: ESRD on dialysis Disposition: 09 ADMITTED INPATIENT Admit to: Tele Condition: Fair Critical Care Note Critical Care Time?: Yes (45 min-critical care time only) Stability Stability form required: Yes Unstable for transfer: Telemetry monitoring (Telemetry monitoring required), ED Physician Assesment (Clinical assesment) I personally scribed for STEFANIA LYNN MD ([email or web address]) on 07/26/24 at 14:11. Electronically submitted by Marina Liz ([facility]). STEFANIA LYNN MD Jul 26, 2024 14:11
[2024-07-26 14:47] LABS: Basophils # (auto) 0 10 ^3/uL (0-0.2); Basophils % (auto) 0.9 % (0.0-2.0); Eosinophils # (auto) 0.3 10 ^3/uL (0-0.8); Hematocrit 34.6 % (41.0-53.0); Hemoglobin 11.5 g/dL (13.5-17.5); Lymphocytes # (auto) 1.1 10 ^3/uL (0.4-5.4); Lymphocytes % (auto) 19.2 % (10.0-50.0); Mean Corpuscular Hgb Conc. 33.2 g/dL (32.0-36.0); Mean Corpuscular Volume 96.4 fL (80.0-100.0); Monocytes # (auto) 0.3 10 ^3/uL (0-1.3); Monocytes % (auto) 5.1 % (0.0-12.0); Neutrophils # (auto) 3.8 10 ^3/uL (1.6-8.6); Neutrophils % (auto) 68.8 % (37.0-80.0); Platelet Count (auto) 89 10^3/uL (140-450); Red Cell Distribution Width 16.5 % (11.8-14.3); White Blood Cell 5.6 10^3/uL (4.4-10.8)
--- NOTE | 2024-07-26 14:47 | DVH ---
CT brain without contrast CLINICAL INDICATION: Altered mental status FINDINGS: The study was performed in a multidetector scanner. This study performed taking axial imag es from the skull base up to the vertex. Both brain and bone windows are photographed. Dose lowering techniques have been used including automated exposure control and adjustment of mA and /or KV according to patient size. No areas of hemorrhage or edema. No extra-axial hemorrhage. Cortical sulcal markings are prominent. N o hydrocephalus. Retention cyst or mucocele in the floor of the right maxillary sinus. IMPRESSION: 1. No acute intracranial pathology Computed Tomographic Radiation Dosimetry Report: Total CTDI vol = 60 mGy Total DLP = 1459 mGy-cm All CT scans at this medical facility are performed using dose modulation techniques as appropriate t o a performed exam including the following: Automated exposure control was utilized; adjustment of the MA and/or KvP according to patient size; a nd use of iterative reconstruction technique.
[2024-07-26 14:57] LABS: Chloride 100 mmol/L (98-107); Potassium 4.1 mmol/L (3.5-5.1); Sodium 138 mmol/L (136-145)
[2024-07-26 14:59] LABS: Anion Gap 5 (5-15)
[2024-07-26 15:03] LABS: Calcium 8.5 mg/dL (8.7-10.4); Carbon Dioxide 33 mmol/L (20-31)
[2024-07-26 15:04] LABS: BUN/Creatinine Ratio 5.3 (10.0-20.0)
[2024-07-26 15:05] LABS: Blood Urea Nitrogen 50 mg/dL (9-23); Glucose 152 mg/dL (74-106)
--- NOTE | 2024-07-26 15:33 | ECG ---
[facility] Test Date: 2024-07-26 Test Time: 13:36:58 Pat Name: ALAYNA BOWERS Department: ER Room: Gender: M Machine Set Up Operator: CRISTINA : 1960 Requested By: CHRISTOPH KIM Order Number: [id number] Reading MD: Measurements Intervals [place] Rate: 54 P: 26 MO: 141 QRS: -35 QRSD: 96 T: 6 QT: 482 QTc: 457 Interpretive Statements Sinus rhythm Left axis deviation Abnormal R-wave progression, late transition Please click the below link to view image of tracing.
[2024-07-26 21:27] LABS: Urine Bacteria None Seen /hpf (None Seen)
[2024-07-26 21:40] LABS: Urine Blood 2+ /uL (Negative); Urine Clarity Turbid (Clear); Urine Color Yellow (Yellow); Urine Protein, UAD 3+ (Negative); Urine Specific Gravity 1.032 (1.001-1.035); Urine Squamous Epithelial Cell FEW /hpf (<5); Urine Urobilinogen Normal (Negative); Urine WBC 111 /hpf (0 - 3); Urine pH 6.5 (5.0-9.0)
--- NOTE | 2024-07-26 22:04 | DVHHPRES ---
History of Present Illness Resident Creating Document: MATTEO LAUREANO RESIDENT History of Present Illness Patient is a 64-year-old male with past medical history of hepatitis-C, ESRD on peritoneal dialysis at home, diabetes, hypertension, dyslipidemia, who came in due to bilateral decrease in hearing. According to the patient for the past 4 days he has been experiencing ear blockage along with decreased hearing bilaterally, L>R. Patient also notes dizziness which worsens on standing, with a sensation like the room is spinning and feels imbalanced, he had 2 episodes of vomiting this morning, vomitus containing food like particles.. On review of systems patient is complaining of fatigue, flu-like symptoms, cough, nausea and vomiting. Head CT shows no acute intracranial pathology Past Medical History hepatitis-C, ESRD on peritoneal dialysis at home, diabetes, hypertension, dyslipidemia Past Surgical History S/p liver transplant Smoke: No ALCOHOL: none Drugs: None Lives: Alone Review of Systems Constitutional: Yes: Malaise; No: Fever, Chills, Sweats, Weakness, Other Eyes: No: Pain, Vision change, Conjunctivae inflammation, Eyelid inflammation, Other, Redness ENT: Nose discharge, Nose congestion, Throat pain; No: Ear pain, Ear discharge, Nose pain, Mouth pain, Mouth swelling, Throat swelling, Other Respiratory: Cough; No: Dry, Shortness of breath, SOB with excertion, Wheezing, Hemoptysis, Pleuritic Pain, Sputum, Wheezing, Other Cardiovascular: No: Chest Pain, Palpitations, Orthopnea, Paroxysmal Noc. Dyspnea, Edema, Lt Headedness, Other Gastrointestinal: Nausea, Vomiting; No: Abdominal Pain, Diarrhea, Constipation, Melena, Hematochezia, Other Genitourinary: No Dysuria, No Frequency, No Incontinence, No Hematuria, No R etention, No Other Musculoskeletal: No: other, neck pain, shoulder pain, arm pain, back pain, hand pain, leg pain, foot pain Skin: No: Rash, Lesions, Jaundice, Bruising, Other Neurological: No: Weakness, Numbness, Incoordination, Change in speech, Confusion, Seizures, Other Allergies: Coded Allergies: NO KNOWN ALLERGIES (Unverified , 07/22/19) Medications Current Medications Medications Dose Ordered Sig/Dahlia Route Start Time Stop Time Status Last Admin Dose Admin Ceftriaxone Sodium 50 ml @ 100 mls/hr DAILY@09 IV 07/27/24 09:00 UNV Azithromycin 250 mg DAILY PO 07/27/24 10:00 UNV Aspirin 81 mg DAILY PO 07/27/24 10:00 UNV Sevelamer HCl 800 mg TIDWM PO 07/27/24 08:00 UNV Ferrous Sulfate 325 mg TIDWM PO 07/27/24 08:00 UNV Furosemide 80 mg DAILY PO 07/27/24 10:00 UNV Exam Vital Signs Vital Signs Date Time Temp Pulse Resp B/P (MAP) Pulse Ox O2 Delivery O2 Flow Rate FiO2 07/26/24 16:00 60 14 128/75 (92) 99 07/26/24 15:29 Room Air* 0 21 07/26/24 13:27 97.3 General Appearance: Alert, Oriented X3, Cooperative, No acute distress HEENT: Atraumatic, PERRLA, EOMI, Mucous membr. moist/pink Respiratory: Clear to auscultation, Normal air movement Cardiovascular: Regular rate, Normal S1, Normal S2, No murmurs Abdominal: Normal bowel sounds, Soft, No tenderness Extremities: No clubbing, No cyanosis Skin: No rashes, No breakdown Neuro: Normal speech, Strength at 5/5 X4 ext, Sensation intact Psych/Mental Status: Mental status NL, Mood NL Labs/Xrays Labs Test 07/26/24 14:25 07/26/24 13:34 07/26/24 13:32 Range/Units White Blood Count 5.6 4.4-10.8 10^3/uL Red Blood Count 3.60 L 4.5-5.90 10^6/uL Hemoglobin 11.5 L 13.5-17.5 g/dL Hematocrit 34.6 L 41.0-53.0 % Mean Corpuscular Volume 96.4 80.0-100.0 fL Mean Corpuscular Hemoglobin 32.0 28.0-32.0 pg Mean Corpuscular Hemoglobin Concent 33.2 32.0-36.0 g/dL Red Cell Distribution Width 16.5 H 11.8-14.3 % Platelet Count 89 L 140-450 10^3/uL Mean Platelet Volume 8.7 6.9-10.8 fL Neutrophils (%) (Auto) 68.8 37.0-80.0 % Lymphocytes (%) (Auto) 19.2 10.0-50.0 % Monocytes (%) (Auto) 5.1 0.0-12.0 % Eosinophils (%) (Auto) 6.0 0.0-7.0 % Basophils (%) (Auto) 0.9 0.0-2.0 % Neutrophils # (Auto) 3.8 1.6-8.6 10 ^3/uL Lymphocytes # (Auto) 1.1 0.4-5.4 10 ^3/uL Monocytes # (Auto) 0.3 0-1.3 10 ^3/uL Eosinophils # (Auto) 0.3 0-0.8 10 ^3/uL Basophils # (Auto) 0 0-0.2 10 ^3/uL Nucleated Red Blood Cells 0.0 % Sodium Level 138 136-145 mmol/L Potassium Level 4.1 3.5-5.1 mmol/L Chloride Level 100 98-107 mmol/L Carbon Dioxide Level 33 H 20-31 mmol/L Anion Gap 5 5-15 Blood Urea Nitrogen 50 H 9-23 mg/dL Creatinine 9.48 H 0.700-1.30 mg/dL Glomerular Filtration Rate Calc 6 >90 mL/min BUN/Creatinine Ratio 5.3 L 10.0-20.0 Serum Glucose 152 H 74-106 mg/dL Calcium Level 8.5 L 8.7-10.4 mg/dL Urine Color Yellow Yellow Urine Clarity Turbid H Clear Urine pH 6.5 5.0-9.0 Urine Specific [place] 1.032 1.001-1.035 Urine Protein 3+ H Negative Urine Ketones Negative Negative Urine Blood 2+ H Negative /uL Urine Nitrite Negative Negative Urine Bilirubin Negative Negative Urine Urobilinogen Normal Negative mg/dL Urine Leukocyte Esterase 1+ Negative /uL Urine RBC 14 0 - 3 /hpf Urine WBC 111 0 - 3 /hpf Urine Squamous Epithelial Cells Few <5 /hpf Urine Bacteria None seen None Seen /hpf Urine Glucose 3+ H Normal mg/dL POC Glucose 131 H 70-106 mg/dl Assessment/Plan Assessment/Plan Dizziness, rule out stroke Meniere's disease can not be ruled out Right-sided pleural effusion versus atelectasis; possible community-acquired pneumonia Gram-positive versus Gram-negative - head CT: No acute intracranial pathology - CXR: No active cardiopulmonary disease or significant interval change. Small right-sided pleural effusion and/or atelectasis - IV ceftriaxone, p.o. azithromycin ESRD, on peritoneal dialysis daily - resumed home calcium acetate 667 mg 2 tablets t.i.d. - ferrous sulfate 325 mg p.o. t.i.d. - sevelamer 800 mg p.o. t.i.d. - nephrology consulted Hypertension Dyslipidemia Type 2 diabetes, Hb A1c 7.4 - aspirin 81 mg - blood pressure currently running soft, holding home antihypertensives - furosemide 80 mg p.o. daily - placed on mild sliding scale insulin History of hepatitis-C, s/p liver transplant - monitor Goals of care: Full code, discussed for >16 minutes on 07/26/2024 Plan discussed with patient Plan discussed with Dr. Olivera Plan discussed with: Patient, Other (RN) My Orders Orders - MATTEO LAUREANO RESIDENT Procedure Category Date Status Time Admit ADMIT 07/26/24 Transmitted 21:55 Chest Portable XY 07/26/24 Logged 21:55 Blood Culture SNOW 07/26/24 Logged 21:55 Respiratory Culture SNOW 07/26/24 Logged W/ Gs 21:55 Covid19 Antigen Viky LAB 07/26/24 Logged Rapid Influenza A&B LAB 07/26/24 Logged 21:55 Notify Of Changes JUAN A 07/26/24 In Process From [facility] 21:55 Ceftriaxone 1gm/50ml PHA 07/27/24 Logged D5w (Rocephin) 09:00 Ceftriaxone 1gm/50ml PHA 07/26/24 Logged D5w (Rocephin) 22:00 Azithromycin Tablet PHA 07/27/24 Logged (Zithromax Tablet) 10:00 Azithromycin Tablet PHA 07/26/24 Logged (Zithromax Tablet) 22:00 *Dr. [facility] CONS 07/26/24 Transmitted -[place] 21:55 Aspirin Tablet PHA 07/27/24 Logged 10:00 Sevelamer (Renagel) PHA 07/27/24 Logged 08:00 Ferrous Sulfate Tablet PHA 07/27/24 Logged 08:00 Furosemide Tablet PHA 07/27/24 Logged (Lasix Tablet) 10:00 Calcium Acetate PHA 07/27/24 Transmitted Capsule (Phoslo 06:00 Date of Service: Jul 26, 2024 Billing Provider: ROQUE OLIVERA MD Common Visit Codes: [id number] INP/OBS CARE (HIGH) MATTEO LAUREANO Jul 26, 2024 22:03 ROQUE OLIVERA MD Jul 27, 2024 17:52
--- NOTE | 2024-07-26 22:43 | DVH ---
CHEST RADIOGRAPH Indication: sob Technique: Single frontal view of the chest was obtained Comparison: XY CHEST XRAY 1 VIEW on DOS: 03/29/23, CXRP on DOS: 11/13/21, CHEST PORTABLE on DOS: 2 FINDINGS: IMPRESSION: No active cardiopulmonary disease or significant interval change. Small right-sided pleural effusion and/or atelectasis.
[2024-07-27] MEDS: AZITHROMYCIN 250 MG TAB PO ONE (01:34)
[2024-07-27 01:40] LABS: Rapid Influenza A Negative (Negative); Rapid Influenza B Negative (Negative)
[2024-07-27 01:41] LABS: COVID19 ANTIGEN SOFIA FIA NEGATIVE (NEGATIVE)
[2024-07-27] MEDS: cefTRIAXone 1GM/50ML D5W 50 ML IV ONE (01:43)
[2024-07-27] MEDS: DEXTROSE (50%) 50ML SYRG IV ONE (06:22)
[2024-07-27] MEDS: ACCU-CHEK COMFORT CURVE STRIP VI ONE (06:27)
[2024-07-27] MEDS: CALCIUM ACETATE 667 MG CAP PO SCH (06:27)
[2024-07-27] MEDS: InsuLIN REG 1unit/0.01ml Soln (100units/ml) SC ONE (06:28)
[2024-07-27] MEDS: SEVELAMER 800 MG TAB PO SCH (08:16)
[2024-07-27] MEDS: FERROUS SULFATE 325mg EC TAB PO SCH (08:16)
[2024-07-27] MEDS: cefTRIAXone 1GM/50ML D5W 50 ML IV SCH (08:24)
[2024-07-27] MEDS ORDERED: DEXTROSE (50%) 50ML SYRG IV PRN (08:30)
[2024-07-27 09:31] VITALS: BP 120/66; PULSE 66; RESP 18; TEMP 97.9; O2SAT 100
[2024-07-27] MEDS ORDERED: ASPirin 81 mg TAB PO SCH (10:00)
[2024-07-27] MEDS ORDERED: AZITHROMYCIN 250 MG TAB PO SCH (10:00)
[2024-07-27] MEDS ORDERED: FUROSEMIDE 20 MG TAB PO SCH (10:00)
--- NOTE | 2024-07-27 10:06 | DVHINCON2 ---
Date of service: Jul 27, [address] Woodward Reason for Consultation End-stage renal disease to manage hemodialysis History of Present Illness Patient is a 64-year-old male with past medical history significant for DM, ESRD on hemodialysis, Gout, High Lipids, and HTN, is admitted for bilateral hearing loss and dizziness. On admission Nephrology is consulted to manage his hemodialysis Past Medical History PAST MEDICAL HISTORY: DM, ESRD, Gout, High Lipids, HTN, Liver Allergies: Coded Allergies: NO KNOWN ALLERGIES (Unverified , 07/22/19) Home Meds Active Scripts Apixaban Base (ELIQUIS) 5 Mg Tab, 10 MG PO BID for 7 Days, #14 TAB 10MG BID X 7 DAYS THEN 5MG PO BID FOR AT LEAST 6 MONTHS FOR DVT/PE TREATMENT Prov:JOANN MCGEE MD 11/21/21 Apixaban Base (ELIQUIS) 5 Mg Tab, 5 MG PO BID, #180 TAB Prov:JOANN MCGEE MD 11/21/21 Apixaban Base (ELIQUIS) 5 Mg Tab, 5 MG PO BID, #180 TAB Prov:JOANN MCGEE MD 11/21/21 Calcium Acetate (PHOSLO CAPSULE) 667 Mg Cp, 2 CAP PO TID, #180 CAP 5 Refills Prov:JOANN MCGEE MD 11/21/21 B-Complex W/ C & Folic Acid (Nephro-Steve Rx) 1 Tab Tb, 1 TAB PO DAILY, #90 TAB Prov:JOANN MCGEE MD 11/21/21 Ferrous Sulfate (Iron) 325 Mg Tab, 325 MG PO BID, #180 TAB Prov:JOANN MCGEE MD 08/08/21 Pantoprazole Sodium Sesquihydr (Protonix) 40 Mg Tab, 40 MG PO DAILY for 14 Days, #14 TAB Prov:TINY VILLA MD 02/15/20 Blood Glucose Monitoring Suppl (D-Care Glucometer Kit/Glu W/Device) 1 Kit Kit, KIT XX, #1 Prov:LENORA IRWIN MD 08/22/19 Aspirin (Aspir-Low Ec) 81 Mg Tb, 1 TAB PO DAILY, #30 TAB 3 Refills Prov:LENORA IRWIN MD 08/22/19 Sitagliptin Phosphate (Januvia) 50 Mg Tab, 1 TAB PO DAILY, #30 TAB 5 Refills Prov:LENORA IRWIN MD 08/22/19 Reported Medications Calcitriol (Calcitriol) 0.5 Mcg Cap, 1 CAP PO DAILY 05/25/21 Gabapentin (Gabapentin) 100 Mg Cap, 3 CAP PO TID 05/25/21 Fludrocortisone Acetate (Fludrocortisone Acetate) 0.1 Mg Tab, 1 TAB PO DAILY 05/25/21 Calcium Carbonate (Antacid) (Gnp Antacid) 500 Mg Chw, 1 TAB PO BID 05/25/21 Sodium Bicarbonate (Sodium Bicarbonate) 650 Mg Tab, 1 TAB PO DAILY 05/25/21 Hydralazine Hcl (Hydralazine Hcl) 50 Mg Tab, 1 TAB PO BID 05/25/21 Losartan Potassium (Losartan Potassium) 25 Mg Tab, 1 TAB PO HS 05/25/21 Tacrolimus (Tacrolimus) 1 Mg Cap, 0 PO UD TAKE 5 CAPS PO QAM & 4 CAPS PO QPM 09/29/20 Amlodipine Besylate (NORVASC TABLET) 5 Mg Tb, 1 TAB PO DAILY 09/29/20 Febuxostat (Febuxostat) 80 Mg Tab, 80 MG PO QAM 09/29/20 Mycophenolate Mofetil (Mycophenolate Mofetil) 250 Mg Cap, 250 MG PO BID 09/29/20 Cholecalciferol (D3 Maximum Strength) 5,000 Unit Cap, 5000 UNIT PO DAILY, CAP 08/15/19 Current Medications Current Medications Medications (Trade) Dose Ordered Sig/Dahlia Route PRN Reason Start Time Stop Time Status Last Admin Ceftriaxone Sodium 50 ml @ 100 mls/hr DAILY@09 IV 07/27/24 09:00 07/27/24 11:19 DC 07/27/24 08:24 Azithromycin (Zithromax Tablet) 250 mg DAILY PO 07/27/24 10:00 07/27/24 11:19 DC Aspirin 81 mg DAILY PO 07/27/24 10:00 07/27/24 11:19 DC Sevelamer HCl (Renagel) 800 mg TIDWM PO 07/27/24 08:00 07/27/24 11:19 DC 07/27/24 08:16 Ferrous Sulfate 325 mg TIDWM PO 07/27/24 08:00 07/27/24 11:19 DC 07/27/24 08:16 Furosemide (Lasix Tablet) 80 mg DAILY PO 07/27/24 10:00 07/27/24 11:19 DC Calcium Acetate (Phoslo Capsule) 667 mg TID PO 07/27/24 06:00 07/27/24 11:19 DC 07/27/24 06:27 Diagnostic Test (Pha) (Accu-Chek Comfort Curve T) 1 strip ACHS 07/27/24 11:30 07/27/24 11:19 DC Insulin Human Regular (InsuLIN R) ACHS SC 07/27/24 11:30 07/27/24 11:19 DC Dextrose 50 ml UD PRN IV Blood Sugar LESS THAN 60 07/27/24 08:30 07/27/24 11:19 DC Family History: Diabetes mellitus DAD, Onset:30's - 40 Kidney stones G8 MOTHER Review of Systems All 12 item review of systems reviewed with the patient nonsignificant except what is mentioned in the history of present illness H&P Exam Vital Signs/I&O Vital Sign Date Time Temp Pulse Resp B/P (MAP) Pulse Ox O2 Delivery O2 Flow Rate FiO2 07/27/24 09:31 97.9 66 18 120/66 (84) 100 97.9 07/27/24 07:28 Room Air* 0 21 Intake and Output 07/26/24 07/27/24 19:00 07:00 Intake Total 50 ml Balance 50 ml Intake IV Total 50 ml Physical Exam Patient is Awake and alert lungs clear to auscultation bilaterally Cardiac exam regular rate and rhythm GI soft nontender normal Extremity no clubbing cyanosis or edema Neuro nonfocal Labs/Diagnostic Data Labs/Diagnostic Data Laboratory Tests Test 07/27/24 00:54 07/27/24 00:43 07/26/24 14:25 07/26/24 13:34 Range/Units Influenza Type A Antigen Negative Negative Influenza Type B Antigen Negative Negative SARS-CoV-2 Antigen (Rapid) Negative NEGATIVE Hemoglobin A1c 7.4 H <5.7 % A1C White Blood Count 5.6 4.4-10.8 10^3/uL Red Blood Count 3.60 L 4.5-5.90 10^6/uL Hemoglobin 11.5 L 13.5-17.5 g/dL Hematocrit 34.6 L 41.0-53.0 % Mean Corpuscular Volume 96.4 80.0-100.0 fL Mean Corpuscular Hemoglobin 32.0 28.0-32.0 pg Mean Corpuscular Hemoglobin Concent 33.2 32.0-36.0 g/dL Red Cell Distribution Width 16.5 H 11.8-14.3 % Platelet Count 89 L 140-450 10^3/uL Mean Platelet Volume 8.7 6.9-10.8 fL Neutrophils (%) (Auto) 68.8 37.0-80.0 % Lymphocytes (%) (Auto) 19.2 10.0-50.0 % Monocytes (%) (Auto) 5.1 0.0-12.0 % Eosinophils (%) (Auto) 6.0 0.0-7.0 % Basophils (%) (Auto) 0.9 0.0-2.0 % Neutrophils # (Auto) 3.8 1.6-8.6 10 ^3/uL Lymphocytes # (Auto) 1.1 0.4-5.4 10 ^3/uL Monocytes # (Auto) 0.3 0-1.3 10 ^3/uL Eosinophils # (Auto) 0.3 0-0.8 10 ^3/uL Basophils # (Auto) 0 0-0.2 10 ^3/uL Nucleated Red Blood Cells 0.0 % Sodium Level 138 136-145 mmol/L Potassium Level 4.1 3.5-5.1 mmol/L Chloride Level 100 98-107 mmol/L Carbon Dioxide Level 33 H 20-31 mmol/L Anion Gap 5 5-15 Blood Urea Nitrogen 50 H 9-23 mg/dL Creatinine 9.48 H 0.700-1.30 mg/dL Glomerular Filtration Rate Calc 6 >90 mL/min BUN/Creatinine Ratio 5.3 L 10.0-20.0 Serum Glucose 152 H 74-106 mg/dL Calcium Level 8.5 L 8.7-10.4 mg/dL Urine Color Yellow Yellow Urine Clarity Turbid H Clear Urine pH 6.5 5.0-9.0 Urine Specific [place] 1.032 1.001-1.035 Urine Protein 3+ H Negative Urine Ketones Negative Negative Urine Blood 2+ H Negative /uL Urine Nitrite Negative Negative Urine Bilirubin Negative Negative Urine Urobilinogen Normal Negative mg/dL Urine Leukocyte Esterase 1+ Negative /uL Urine RBC 14 0 - 3 /hpf Urine WBC 111 0 - 3 /hpf Urine Squamous Epithelial Cells Few <5 /hpf Urine Bacteria None seen None Seen /hpf Urine Glucose 3+ H Normal mg/dL Test 07/26/24 13:32 Range/Units POC Glucose 131 H 70-106 mg/dl Assessment End-stage renal disease on hemodialysis Diabetes mellitus type 2 Hypertension Chronic diastolic Congestive heart failure Anemia of chronic kidney disease, we will compensate Recommendations Hemodialysis tomorrow Resume home medication Renal diet Blood pressure control We will continue to follow Patient seen and examined by myself. I discussed my plan of care with the patient and primary nurse at the bedside I would like to thank Dr. Woodward for the consult, will follow Plan discussed with: Patient CARMEN COX MD Jul 27, 2024 10:06
[2024-07-27] MEDS ORDERED: ACCU-CHEK COMFORT CURVE STRIP VI SCH (11:30)
[2024-07-27] MEDS ORDERED: InsuLIN REG 1unit/0.01ml Soln (100units/ml) SC SCH (11:30)
--- NOTE | 2024-07-27 17:33 | DVHDSRES ---
Discharge Summary Date of Admission Resident Creating Document: MATTEO LAUREANO RESIDENT Jul 26, 2024 at 21:55 Date of Discharge: Jul 27, 2024 Admitting Diagnosis Dizziness, rule out stroke Labs/Diagnostic Data: Laboratory Results Test 07/27/24 00:54 07/27/24 00:43 07/26/24 14:25 07/26/24 13:34 Influenza Type A Antigen Negative (Negative) Influenza Type B Antigen Negative (Negative) SARS-CoV-2 Antigen (Rapid) Negative (NEGATIVE) Hemoglobin A1c 7.4 % A1C (<5.7) White Blood Count 5.6 10^3/uL (4.4-10.8) Red Blood Count 3.60 10^6/uL (4.5-5.90) Hemoglobin 11.5 g/dL (13.5-17.5) Hematocrit 34.6 % (41.0-53.0) Mean Corpuscular Volume 96.4 fL (80.0-100.0) Mean Corpuscular Hemoglobin 32.0 pg (28.0-32.0) Mean Corpuscular Hemoglobin Concent 33.2 g/dL (32.0-36.0) Red Cell Distribution Width 16.5 % (11.8-14.3) Platelet Count 89 10^3/uL (140-450) Mean Platelet Volume 8.7 fL (6.9-10.8) Neutrophils (%) (Auto) 68.8 % (37.0-80.0) Lymphocytes (%) (Auto) 19.2 % (10.0-50.0) Monocytes (%) (Auto) 5.1 % (0.0-12.0) Eosinophils (%) (Auto) 6.0 % (0.0-7.0) Basophils (%) (Auto) 0.9 % (0.0-2.0) Neutrophils # (Auto) 3.8 10 ^3/uL (1.6-8.6) Lymphocytes # (Auto) 1.1 10 ^3/uL (0.4-5.4) Monocytes # (Auto) 0.3 10 ^3/uL (0-1.3) Eosinophils # (Auto) 0.3 10 ^3/uL (0-0.8) Basophils # (Auto) 0 10 ^3/uL (0-0.2) Nucleated Red Blood Cells 0.0 % Sodium Level 138 mmol/L (136-145) Potassium Level 4.1 mmol/L (3.5-5.1) Chloride Level 100 mmol/L (98-107) Carbon Dioxide Level 33 mmol/L (20-31) Anion Gap 5 (5-15) Blood Urea Nitrogen 50 mg/dL (9-23) Creatinine 9.48 mg/dL (0.700-1.30) Glomerular Filtration Rate Calc 6 mL/min (>90) BUN/Creatinine Ratio 5.3 (10.0-20.0) Serum Glucose 152 mg/dL (74-106) Calcium Level 8.5 mg/dL (8.7-10.4) Urine Color Yellow (Yellow) Urine Clarity Turbid (Clear) Urine pH 6.5 (5.0-9.0) Urine Specific [place] 1.032 (1.001-1.035) Urine Protein 3+ (Negative) Urine Ketones Negative (Negative) Urine Blood 2+ /uL (Negative) Urine Nitrite Negative (Negative) Urine Bilirubin Negative (Negative) Urine Urobilinogen Normal mg/dL (Negative) Urine Leukocyte Esterase 1+ /uL (Negative) Urine RBC 14 /hpf (0 - 3) Urine WBC 111 /hpf (0 - 3) Urine Squamous Epithelial Cells Few /hpf (<5) Urine Bacteria None seen /hpf (None Seen) Urine Glucose 3+ mg/dL (Normal) Test 07/26/24 13:32 POC Glucose 131 mg/dl (70-106) Other Laboratory Tests 07/26/24 14:25 Brief Hx & Hospital Course: Patient is a 64-year-old male with past medical history of hepatitis-C, ESRD on peritoneal dialysis at home, diabetes, hypertension, dyslipidemia, who came in due to bilateral decrease in hearing. According to the patient for the past 4 days he has been experiencing ear blockage along with decreased hearing bilaterally, L>R. Patient also notes dizziness which worsens on standing, with a sensation like the room is spinning and feels imbalanced, he had 2 episodes of vomiting this morning, vomitus containing food like particles, On review of systems patient is complaining of fatigue, flu-like symptoms, cough, nausea and vomiting. Head CT shows no acute intracranial pathology. patient was admitted and before further evaluation he left AMA Operations or Procedures CT brain without contrast CLINICAL INDICATION: Altered mental status FINDINGS: The study was performed in a multidetector scanner. This study performed taking axial images from the skull base up to the vertex. Both brain and bone windows are photographed. Dose lowering techniques have been used including automated exposure control and adjustment of mA and/or KV according to patient size. No areas of hemorrhage or edema. No extra-axial hemorrhage. Cortical sulcal markings are prominent. No hydrocephalus. Retention cyst or mucocele in the floor of the right maxillary sinus. IMPRESSION: 1. No acute intracranial pathology CHEST RADIOGRAPH Indication: sob Technique: Single frontal view of the chest was obtained Comparison: XY CHEST XRAY 1 VIEW on DOS: 03/29/23, CXRP on DOS: 11/13/21, CHEST PORTABLE on DOS: 11/13/21 FINDINGS: IMPRESSION: No active cardiopulmonary disease or significant interval change. Small right- sided pleural effusion and/or atelectasis. Condition at Discharge: Undetermined Final Diagnosis/Problems List Dizziness, ruled out stroke Meniere's disease can not be ruled out Possible community-acquired pneumonia Gram-positive versus Gram-negative ESRD, on peritoneal dialysis daily Hypertension Dyslipidemia Type 2 diabetes, Hb A1c 7.4 History of hepatitis-C, s/p liver transplant Discharge Disposition: AMA Discharge Statement: "Patient was advised to return to the ER or call 911 if any headaches, dizziness, shortness of breath, chest pain, abdominal pain, bleeding, fevers, or worsening of medical condition. Patient was counseled about treatment plan, medications, possible side effects, patientverbalized understanding. All questions were answered to the best of my ability. This discharge took greater then 30 minutes in planning, reviewing documentation, counseling the patient, and discussing with other team members." ASSESSMENT ASSESSMENT Assessment TONI MOTA RESIDENT Jul 27, 2024 17:33
[2024-07-28] MEDS ORDERED: SODIUM CHL 0.9% 1000 ML BAG XX ONE (07:00)
== END 2024-07-27 09:35 | disposition left against medical advice (07) | DRG 177 ==
LOC: ER 13:19 → OVERFLOW 21:55
PROVIDERS: ADMIT Student in an Organized Health Care Education/Training Program; ATTEND Student in an Organized Health Care Education/Training Program
DX: J15.69 Pneumonia due to other Gram-negative bacteria (principal); N18.6 End stage renal disease; I13.2 Hypertensive heart and chronic kidney disease with heart failure and with stage 5 chronic kidney disease, or end stage renal disease; I50.32 Chronic diastolic (congestive) heart failure; Z94.4 Liver transplant status; G90.9 Disorder of the autonomic nervous system, unspecified; H81.03 Meniere's disease, bilateral; Z20.822 Contact with and (suspected) exposure to COVID-19; J15.9 Unspecified bacterial pneumonia; E11.22 Type 2 diabetes mellitus with diabetic chronic kidney disease; D63.1 Anemia in chronic kidney disease; E78.5 Hyperlipidemia, unspecified; M10.9 Gout, unspecified; Z53.29 Procedure and treatment not carried out because of patient's decision for other reasons; Z99.2 Dependence on renal dialysis; Z83.3 Family history of diabetes mellitus; Z82.49 Family history of ischemic heart disease and other diseases of the circulatory system
CPT/HCPCS: 36415; 70450; 71045; 80048; 81001; 82962; 83036; 85025; 87040; 87426; 87804; 93005; 99291; G0378; J1815

== ENCOUNTER 2025-01-22 15:34 | Inpatient (IN) | payer MEDICARE, MEDICAID ==
[~2025-01-22] VITALS: Ht 165.1 cm; Wt 102.4 kg
--- NOTE | 2025-01-22 16:03 | ED.PDOC ---
GI ASSESSMENT HPI Comments This is a 64 year old male presenting to the ED with chief complaint of abdominal pain. Patient reports that he has been experiencing mid epigastric abdominal pain with associated nausea, vomiting, and diarrhea since yesterday. Patient relays that he visited today and was advised to come to the ED for further evaluation. Patient states that he is currently undergoing daily peritoneal dialysis due to ESRD. Patient denies any fever, chills, dysuria, hematuria, chest pain, or SOB. Patient does complain of intermittent nausea. Patient was hypotensive on arrival with a blood pressure 84/59. Time Seen by MD: 15:57 Primary Care Provider: GANN Reviewed Notes: Nurses Notes, Medications, Allergies Allergies: Coded Allergies: NO KNOWN ALLERGIES (Unverified , 07/22/19) Home Meds Active Scripts Apixaban Base (ELIQUIS) 5 Mg Tab, 10 MG PO BID for 7 Days, #14 TAB 10MG BID X 7 DAYS THEN 5MG PO BID FOR AT LEAST 6 MONTHS FOR DVT/PE TREATMENT Prov:JOANN MCGEE MD 11/21/21 Apixaban Base (ELIQUIS) 5 Mg Tab, 5 MG PO BID, #180 TAB Prov:JOANN MCGEE MD 11/21/21 Apixaban Base (ELIQUIS) 5 Mg Tab, 5 MG PO BID, #180 TAB Prov:JOANN MCGEE MD 11/21/21 Calcium Acetate (PHOSLO CAPSULE) 667 Mg Cp, 2 CAP PO TID, #180 CAP 5 Refills Prov:JOANN MCGEE MD 11/21/21 B-Complex W/ C & Folic Acid (Nephro-Steve Rx) 1 Tab Tb, 1 TAB PO DAILY, #90 TAB Prov:JOANN MCGEE MD 11/21/21 Ferrous Sulfate (Iron) 325 Mg Tab, 325 MG PO BID, #180 TAB Prov:JOANN MCGEE MD 08/08/21 Pantoprazole Sodium Sesquihydr (Protonix) 40 Mg Tab, 40 MG PO DAILY for 14 Days, #14 TAB Prov:TINY VILLA MD 02/15/20 Blood Glucose Monitoring Suppl (D-Care Glucometer Kit/Glu W/Device) 1 Kit Kit, KIT XX, #1 Prov:LENORA IRWIN MD 08/22/19 Aspirin (Aspir-Low Ec) 81 Mg Tb, 1 TAB PO DAILY, #30 TAB 3 Refills Prov:LENORA IRWIN MD 08/22/19 Sitagliptin Phosphate (Januvia) 50 Mg Tab, 1 TAB PO DAILY, #30 TAB 5 Refills Prov:LENORA IRWIN MD 08/22/19 Reported Medications Calcitriol (Calcitriol) 0.5 Mcg Cap, 1 CAP PO DAILY 05/25/21 Gabapentin (Gabapentin) 100 Mg Cap, 3 CAP PO TID 05/25/21 Fludrocortisone Acetate (Fludrocortisone Acetate) 0.1 Mg Tab, 1 TAB PO DAILY 05/25/21 Calcium Carbonate (Antacid) (Gnp Antacid) 500 Mg Chw, 1 TAB PO BID 05/25/21 Sodium Bicarbonate (Sodium Bicarbonate) 650 Mg Tab, 1 TAB PO DAILY 05/25/21 Hydralazine Hcl (Hydralazine Hcl) 50 Mg Tab, 1 TAB PO BID 05/25/21 Losartan Potassium (Losartan Potassium) 25 Mg Tab, 1 TAB PO HS 05/25/21 Tacrolimus (Tacrolimus) 1 Mg Cap, 0 PO UD TAKE 5 CAPS PO QAM & 4 CAPS PO QPM 09/29/20 Amlodipine Besylate (NORVASC TABLET) 5 Mg Tb, 1 TAB PO DAILY 09/29/20 Febuxostat (Febuxostat) 80 Mg Tab, 80 MG PO QAM 09/29/20 Mycophenolate Mofetil (Mycophenolate Mofetil) 250 Mg Cap, 250 MG PO BID 09/29/20 Cholecalciferol (D3 Maximum Strength) 5,000 Unit Cap, 5000 UNIT PO DAILY, CAP 08/15/19 Information Source: Patient Mode of Arrival: Ambulatory Timing: Days Duration: Since onset Prehospital treatment: Treatment Quality: Sharp Vomitus: Watery Stool: Watery Severity: Moderate Recent: None Recent Hx of: Liver Disease Pain Location: Diffuse, Epigastric, Periumbilical Modifying Factors: Nothing Associated sign and symptoms: Nausea, Vomiting, Diarrhea, Abdominal Pain Past Medical History PAST MEDICAL HISTORY: DM, ESRD, Gout, High Lipids, HTN, Liver Past Medical History (Other): On peritoneal dialysis for end-stage renal disease Surgical History (Other): Liver transplant, Peritoneal port Family History Family History: Reviewed,noncontributory to illness, No family hx of Heart elvin, Family hx of DM, Family hx of HTN Social History Smoker: Non-Smoker Alcohol: Denies ETOH Use Drugs: Denies Drug Use Lives In: Home Constitutional: denies: chills, diaphoresis, fatigue, fever, malaise, sweats, weakness, others EENTM: denies: blurred vision, double vision, ear bleeding, ear discharge, ear drainage, ear pain, ear ringing, eye pain, eye redness, hearing loss, mouth pain, mouth swelling, nasal discharge, nose bleeding, nose congestion, nose pain, photophobia, tearing, throat pain, throat swelling, voice changes, others Respiratory: denies: cough, hemoptysis, orthopnea, SOB at rest, shortness of breath, SOB with excertion, stridor, wheezing, others Cardiovascular: denies: chest pain, dizzy spells, diaphoresis, Dyspnea on exertion, edema, irregular heart beat, left arm pain, lightheadedness, palpitations, PND, syncope, others Gastrointestinal: reports: abdominal pain, diarrhea, nausea, vomiting; denies: abdomen distended, blood streaked bowels, constipated, dysphagia, difficulty swallowing, hematemesis, melena, poor appetite, poor fluid intake, rectal bleeding, rectal pain, others Genitourinary: denies: burning, dysuria, flank pain, frequency, hematuria, incontinence, penile discharge, penile sore, pain, testicle pain, testicle swelling, urgency, others Neurological: denies: dizziness, fainting, headache, left sided numbness, left sided weakness, numbness, paresthesia, pre-existing deficit, right sided numbness, right sided weakness, seizure, speech problems, tingling, tremors, weakness, others Musculoskeletal: denies: back pain, gout, joint pain, joint swelling, muscle pain, muscle stiffness, neck pain, others Integumetry: denies: bruises, change in color, change in hair/nails, dryness, laceration, lesions, lumps, rash, wounds, others Allergic/Immunocompromised: denies: Difficulty Healing, Frequent Infections, Hives, Itching, others Hematologic/Lymphatic: denies: anemia, blood clots, easy bleeding, easy bruising, swollen glands, others Endocrine: denies: excessive hunger, excessive sweating, excessive thirst, excessive urination, flushing, intolerance to cold, intolerance to heat, unexplained weight gain, unexplained weight loss, others Psychiatric: denies: anxiety, bipolar disorder, depression, hopeless, panic disorder, schizophrenia, sleepless, suicidal, others All Other Systems: Reviewed and Negative Physical Exam General Appearance: Moderate Distress ([place] distress due to abdominal pain concerns and general weakness and nausea.), Normal HEENT: Normal ENT Inspection, Pharynx Normal, TMs Normal Neck: Full Range of Motion, Non-Tender, Normal, Normal Inspection Respiratory: Chest Non-Tender, Lungs Clear, No Accessory Muscle Use, No Respiratory Distress, Normal Breath Sounds Cardiovascular: No Edema, No JVD, No Murmur, No Gallop, Normal Peripheral Pulses, Regular Rate/Rhythm Breast Exam: Deferred Gastrointestinal: Other (Diffuse bilateral periumbilical pain on palpation. Patient has a left-sided peritoneal dialysis port that looks to be patent and uninfected.) Genitalia: Deferred Pelvic: Deferred Rectal: Deferred Extremities: No calf tenderness, Normal capillary refill, Normal inspection, Normal range of motion, Non-tender, No pedal edema Neurologic: Alert, public improvement inspector II-XII nml as Tested, No Motor Deficits, Normal Affect, Normal Mood, No Sensory Deficits Cerebellar Function: Normal Reflexes: Normal Skin: Dry, Normal Color, Warm Lymphatic: No Adenopathy Was a procedure done? Was a procedure done?: No GI differential Dx Differential Diagnosis: Bowel Obstruction, Cholangitis, Constipation, Gastritis/PUD, Gastroenteritis, Pancreatitis, Dehydration, Other (Peritoneal catheter port issue) X-Ray, Labs, Meds, VS Vital Signs Date Time Temp Pulse Resp B/P (MAP) Pulse Ox O2 Delivery O2 Flow Rate FiO2 01/22/25 17:45 83 16 105/55 (72) 98 01/22/25 17:15 80 13 103/65 (78) 98 01/22/25 17:00 100 Non-Rebreather 15 N/A 01/22/25 16:45 98.5 80 15 85/56 (66) 97 98.5 01/22/25 16:31 83 01/22/25 15:35 98.5 86 20 84/59 (67) 98 98.5 Lab Test 01/22/25 17:05 Range/Units White Blood Count 9.8 4.4-10.8 10^3/uL Red Blood Count 3.24 L 4.5-5.90 10^6/uL Hemoglobin 10.8 L 13.5-17.5 g/dL Hematocrit 31.0 L 41.0-53.0 % Mean Corpuscular Volume 95.6 80.0-100.0 fL Mean Corpuscular Hemoglobin 33.2 H 28.0-32.0 pg Mean Corpuscular Hemoglobin Concent 34.7 32.0-36.0 g/dL Red Cell Distribution Width 13.7 11.8-14.3 % Platelet Count 89 L 140-450 10^3/uL Mean Platelet Volume 9.5 6.9-10.8 fL Neutrophils (%) (Auto) 86.1 H 37.0-80.0 % Lymphocytes (%) (Auto) 7.0 L 10.0-50.0 % Monocytes (%) (Auto) 4.8 0.0-12.0 % Eosinophils (%) (Auto) 2.0 0.0-7.0 % Basophils (%) (Auto) 0.1 0.0-2.0 % Neutrophils # (Auto) 8.4 1.6-8.6 10 ^3/uL Lymphocytes # (Auto) 0.7 0.4-5.4 10 ^3/uL Monocytes # (Auto) 0.5 0-1.3 10 ^3/uL Eosinophils # (Auto) 0.2 0-0.8 10 ^3/uL Basophils # (Auto) 0 0-0.2 10 ^3/uL Nucleated Red Blood Cells 0.0 % Sodium Level 136 136-145 mmol/L Potassium Level 4.7 3.5-5.1 mmol/L Chloride Level 97 L 98-107 mmol/L Carbon Dioxide Level 26 20-31 mmol/L Anion Gap 13 5-15 Blood Urea Nitrogen 48 H 9-23 mg/dL Creatinine 12.72 *H 0.700-1.30 mg/dL Glomerular Filtration Rate Calc 4 >90 mL/min BUN/Creatinine Ratio 3.8 L 10.0-20.0 Serum Glucose 135 H 74-106 mg/dL Lactic Acid Level 2.5 *H 0.4-2.0 mmol/L Calcium Level 8.3 L 8.7-10.4 mg/dL Total Bilirubin 0.3 0.2-1.0 mg/dL Aspartate Amino Transferase (AST) 12 L 13-40 U/L Alanine Aminotransferase (ALT) 20 7-40 U/L Alkaline Phosphatase 92 46-116 U/L Troponin I High Sensitivity 13 </=54 ng/L B-Type Natriuretic Peptide Pending Total Protein 6.8 5.7-8.2 g/dL Albumin 4.0 3.2-4.8 g/dL Lipase 36 12-53 U/L Current Medications Medications (Trade) Dose Ordered Sig/Dahlia Route Start Time Stop Time Status Last Admin Dicyclomine HCl (Bentyl Injection) 20 mg ONCE ONCE IM 01/22/25 16:00 01/22/25 16:01 DC 01/22/25 17:06 Ondansetron HCl (Zofran Po) 4 mg ONCE ONCE PO 01/22/25 16:00 01/22/25 16:01 DC 01/22/25 16:53 Sodium Chloride 1,000 ml @ 200 mls/hr Q5H ONCE IV 01/22/25 16:30 01/22/25 21:29 01/22/25 17:06 X-Ray, Labs, Meds, VS Comment All studies performed in the ED were evaluated by me personally. Serum laboratories revealed an anemia, elevated CRP in creatinine indicative of his end-stage renal disease as well as elevated lactic acid. EKG revealed a sinus rhythm with a rate of 83. Borderline left axis deviation as well as baseline wander in multiple leads. MO interval of 133 and QT interval of 376. CT of the abdomen showed a peritoneal dialysis catheter with a small amount of ascites noted. Some postsurgical changes noted from prior liver transplant. Small gastroesophageal varices were seen. A room capsule and thigh elongated fluid collection is seen in the lower anterior abdominal wall soft tissues. Concerns with the patient's blood pressure was reduced and abdominal pain concerns. Patient will be admitted for continued management of blood pressure issues as well as possible cardiac consultation. Additionally, patient will receive GI e valuation due to his end-stage renal disease concerns. Time of 1ST Reevaluation: 18:14 Reevaluation 1ST: Improved Consultation: PCP Patient Education/Counseling: Diagnosis, Treatment Family Education/Counseling: Diagnosis, Treatment, No Family Present SEPSIS Sepsis Screen Recent Procedure: No On Antibiotic Therapy: No Respiratory Rate >20: No Heart Rate >90: No Temp<36 C (96.8 F) or >38.3 C: No SBP <90 or MAP <65 mmHG: Yes New Acute Mental Status Change: No Is the patient on CPAP, BIPAP,: No IV fluid challenge completed?: No Physician Orders Troponin-I Hs (01/22/25 16:56) Troponin-I Hs (01/22/25 18:56) Electrocardigram (01/22/25 15:56) Ct Ab Pel Wo Con-No Oral Or Iv (01/22/25 15:56) Sodium Chloride 0.9% (01/22/25 16:30) Heplock Iv (01/22/25 ) B-Type Natriuretic Peptide (01/22/25 16:27) Vital Signs Date Time Temp Pulse Resp B/P (MAP) Pulse Ox O2 Delivery O2 Flow Rate FiO2 01/22/25 17:45 83 16 105/55 (72) 98 01/22/25 17:15 80 13 103/65 (78) 98 01/22/25 17:00 100 Non-Rebreather 15 N/A 01/22/25 16:45 98.5 80 15 85/56 (66) 97 98.5 01/22/25 16:31 83 01/22/25 15:35 98.5 86 20 84/59 (67) 98 98.5 Laboratory Tests Test 01/22/25 17:05 Lactic Acid Level 2.5 mmol/L (0.4-2.0) *H White Blood Count 9.8 10^3/uL (4.4-10.8) Medications Medications Dose Ordered Sig/Dahlia Route Start Time Stop Time Status Last Admin Dose Admin Dicyclomine HCl 20 mg ONCE ONCE IM 01/22/25 16:00 01/22/25 16:01 DC 01/22/25 17:06 Ondansetron HCl 4 mg ONCE ONCE PO 01/22/25 16:00 01/22/25 16:01 DC 01/22/25 16:53 Sodium Chloride 1,000 ml @ 200 mls/hr Q5H ONCE IV 01/22/25 16:30 01/22/25 21:29 01/22/25 17:06 Departure 1 Departure Time of Disposition: 18:15 Impression: Primary Impression: Hypotension Additional Impressions: Intractable abdominal pain End-stage renal disease on peritoneal dialysis Elevated lactic acid level Anemia Disposition: 09 ADMITTED INPATIENT Condition: Fair Discharged With: Self Critical Care Note Critical Care Time?: No Stability Stability form required: No Heart Score Heart Score: Heart Score Response (Comments) Value History Slightly Suspicious 0 EKG Repolarization Disturb 1 Age 45-64 1 Risk Factors 1 or 2 risk factors 1 Troponin Normal limit 0 Total 3 I personally scribed for JO MATIAS PAC ([email or web address]) on 01/22/25 at 16:03. Electronically submitted by Juvencio Govea ([email or web address]). JO MATIAS PAC Jan 22, 2025 16:03
[2025-01-22] MEDS: ONDANSETRON ODT 4 MG TAB PO ONE (16:53)
[2025-01-22 17:00] VITALS: O2SAT 100
--- NOTE | 2025-01-22 17:01 | DVH ---
CT CT AB PEL WO CON-NO ORAL OR IV INDICATION: Diffuse abdominal pain EXAM DATE: 01/22/2025 04:06 PM COMPARISON: [facility] on DOS: 11/20/21 RADIATION DOSE: CTDIvol: 24.68 mGy, DLP: 1370.21 mGy*cm PROCEDURE: Helical CT images were obtained of the abdomen and pelvis without IV contrast Sagittal and coronal reconstructions are provided. ORAL CONTRAST: None. ADDITIONAL IMAGES / REFORMATS: None All C T scans at this medical facility are performed using dose modulation techniques as appropriate to a p erformed exam including the following: Automated exposure control was utilized; adjustment of the MA and/or KV according to patient size; and use of iterative reconstruction technique. FINDINGS: LUNG BASE: There is bibasilar atelectasis. LIVER: There appears to be postsurgical change from a liver transplant. Gastroesophageal varices are seen. GALLBLADDER AND BILIARY TREE: No calcified gallstones. Normal caliber wall. No intra- or extrahepatic biliary ductal dilation. There is a small amount of pneumobilia. PANCREAS: Normal. SPLEEN: Normal. BOWEL: Normal. ADRENALS: Normal. KIDNEYS AND URETER: The kidneys are atrophic bilaterally. BLADDER: Normal. REPRODUCTIVE ORGANS: A penis pump is visualized. LYMPH NODES:No lymphadenopathy. PERITONEUM: Small amount of ascites. A peritoneal dialysis catheter is seen. VESSELS: Scattered atherosclerotic calcifications are noted. RETROPERITONEUM: Normal. ABDOMINAL WALL: A rim calcified elongated fluid collection is seen in the low anterior abdominal wall soft tissues. BONES: Scattered osseous degenerative changes are noted. IMPRESSION: Peritoneal dialysis catheter with small amount of ascites. Postsurgical changes from liver transplant. Small gastroesophageal varices are seen. Small amount of pneumobilia, is nonspecific. A rim calcified elongated fluid collection is seen in the low anterior abdominal wall soft tissues.
[2025-01-22] MEDS: DICYCLOMINE HCL (10MG/ML) 2 ML AMPULE IM ONE (17:06)
[2025-01-22] MEDS: SODIUM CHLORIDE 0.9% 1,000 ML IV ONE (17:06)
[2025-01-22 17:34] LABS: Hematocrit 31.0 % (41.0-53.0); Hemoglobin 10.8 g/dL (13.5-17.5); Mean Corpuscular Hemoglobin 33.2 pg (28.0-32.0); Mean Corpuscular Volume 95.6 fL (80.0-100.0); Nucleated Red Blood Cells % 0.0 %
[2025-01-22 17:43] LABS: Alanine Aminotransferase 20 U/L (7-40); Albumin 4.0 g/dL (3.2-4.8); Alkaline Phosphatase 92 U/L (46-116); Anion Gap 13 (5-15); BUN/Creatinine Ratio 3.8 (10.0-20.0); Carbon Dioxide 26 mmol/L (20-31); Lipase 36 U/L (12-53); Potassium 4.7 mmol/L (3.5-5.1); Sodium 136 mmol/L (136-145); Total Protein 6.8 g/dL (5.7-8.2)
[2025-01-22 18:05] LABS: Bilirubin, Total 0.3 mg/dL (0.2-1.0); Blood Urea Nitrogen 48 mg/dL (9-23); Calcium 8.3 mg/dL (8.7-10.4); Chloride 97 mmol/L (98-107); Glucose 135 mg/dL (74-106); Lactic Acid w/Reflex 2.5 mmol/L (0.4-2.0)
[2025-01-22] MEDS ORDERED: DOCUSATE SOD 100 MG CAP PO PRN (19:00)
[2025-01-22] MEDS ORDERED: hydrALAZINE HCL 20 MG/ML VL IV PRN (19:00)
[2025-01-22] MEDS ORDERED: ACETAMINOPHEN 325 MG TAB PO PRN (19:00)
[2025-01-22] MEDS ORDERED: ONDANSETRON HCL 4 MG/2 ML VIAL IV PRN (19:00)
[2025-01-22] MEDS: fentaNYL CITRATE 100 MCG/2 ML VL IV ONE (20:08)
[2025-01-22] MEDS ORDERED: MORPHINE SULFATE INJ 2 MG/ml SYRG IV PRN (20:45)
[2025-01-22] MEDS ORDERED: NITROGLYCERIN 0.4 MG SL TAB SL PRN (20:45)
--- NOTE | 2025-01-22 21:03 | DVHHP2 ---
History of Present Illness Reason for Visit: End-stage renal disease on peritoneal dialysis History of Present Illness The patient is a 64-year-old male with past medical history of end-stage renal d istrelle on peritoneal dialysis, diabetes mellitus, GERD, hyperlipidemia, liver disease, hyperlipidemia, and hypertension presented to [facility] ED with complaint of abdominal pain. Patient reports he has been experiencing epigastric abdominal pain associated with nausea, vomiting, generalized weakness, shortness of breaths, getting worse today that prompted this visit. Patient was seen and evaluated in the ED, laboratory data shows WBC 9.8, hemoglobin 10.8, hematocrit 31.0, platelets 89, sodium 136, potassium 4.7, BUN 48, creatinine 12.72, glucose 135, calcium 8.3, BNP 33.91, lipase 36, lactic acid 2.5, troponin 13, blood pressure 106/65, heart rate 85, temperature 98.5 F, O2 saturation 97% on oxygen. Abdomen/pelvis CT revealing peritoneal dialysis catheter with small amount of ascites, postsurgical changes from liver transplant, small gastroesophageal varices seen, small amount of pneumobilia, is nonspecific. Nephrology will follow the patient, please see medication orders section in the computer. On my assessment, patient denied chest pain, no headache, no dizziness, no diaphoresis, currently on oxygen, no nausea, no v omiting, no fever, chills. Patient was admitted for further evaluation and medical management. Past Medical History DM, ESRD, Gout, High Lipids, HTN, Liver Past Surgical History Liver transplant, Peritoneal port Family History Reviewed, noncontributory to the management of this case. Past Social History The patient lives at home, denies smoking, alcohol or illicit drugs abuse. Review of Systems Constitutional: Yes: Weakness; No: Fever, Chills, Sweats, Malaise, Other Eyes: No: Pain, Vision change, Conjunctivae inflammation, Eyelid inflammation, Other, Redness ENT: No: Ear pain, Ear discharge, Nose pain, Nose discharge, Nose congestion, Mouth pain, Mouth swelling, Throat pain, Throat swelling, Other Respiratory: Shortness of breath; No: Cough, Dry, SOB with excertion, Wheezing, Hemoptysis, Pleuritic Pain, Sputum, Wheezing, Other Cardiovascular: No: Chest Pain, Palpitations, Orthopnea, Paroxysmal Noc. Dyspnea, Edema, Lt Headedness, Other Gastrointestinal: Nausea, Vomiting, Abdominal Pain, Other (Peritoneal port); No: Diarrhea, Constipation, Melena, Hematochezia Genitourinary: No Dysuria, No Frequency, No Incontinence, No Hematuria, No Retention; Other (On peritoneal dialysis) Musculoskeletal: No: other, neck pain, shoulder pain, arm pain, back pain, hand pain, leg pain, foot pain Skin: No: Rash, Lesions, Jaundice, Bruising, Other Neurological: No: Weakness, Numbness, Incoordination, Change in speech, Confusion, Seizures, Other Allergies: Coded Allergies: NO KNOWN ALLERGIES (Unverified , 07/22/19) Medications Current Medications Medications Dose Ordered Sig/Dahlia Route Start Time Stop Time Status Last Admin Dose Admin Amlodipine Besylate 5 mg DAILY PO 01/23/25 10:00 Aspirin 81 mg DAILY PO 01/23/25 10:00 Multivit/Ca Carb/ B Cmplx/FA/Prenat 1 tab DAILY PO 01/23/25 10:00 Sevelamer HCl 800 mg TIDWM PO 01/23/25 08:00 Hydralazine HCl 10 mg Q6HP PRN IV 01/22/25 19:00 Famotidine 20 mg Q12HR IV 01/22/25 22:00 Sodium Chloride 10 ml Q8HR IV 01/22/25 22:00 Acetaminophen/ Hydrocodone Bitart 1 tab Q4HP PRN PO 01/22/25 19:00 Ondansetron HCl 4 mg Q4HP PRN IV 01/22/25 19:00 Docusate Sodium 100 mg BIDPRN PRN PO 01/22/25 19:00 Acetaminophen 650 mg Q6HP PRN PO 01/22/25 19:00 Exam Vital Signs Vital Signs Date Time Temp Pulse Resp B/P (MAP) Pulse Ox O2 Delivery O2 Flow Rate FiO2 01/22/25 20:08 103/56 01/22/25 18:15 85 15 97 01/22/25 17:00 Non-Rebreather 15 N/A 01/22/25 16:45 98.5 98.5 General Appearance: Alert, Oriented X3, Cooperative, No acute distress HEENT: Atraumatic, PERRLA, EOMI, Mucous membr. moist/pink Respiratory: Normal air movement Cardiovascular: Regular rate, Normal S1, Normal S2, No murmurs Abdominal: Normal bowel sounds, Soft, No hepatospenomegaly, No masses, Other (Reports tenderness) Extremities: No clubbing, No cyanosis, No edema, Normal pulses, No tenderness/swelling Skin: No rashes, No significant lesion Neuro: Normal speech, Normal tone, Sensation intact, Cranial nerves 3-12 NL, Reflexes 2+, Other (Generalized weakness) Psych/Mental Status: Mental status NL, Mood NL Labs/Xrays Labs Test 01/22/25 20:25 01/22/25 17:05 Range/Units White Blood Count 9.8 4.4-10.8 10^3/uL Red Blood Count 3.24 L 4.5-5.90 10^6/uL Hemoglobin 10.8 L 13.5-17.5 g/dL Hematocrit 31.0 L 41.0-53.0 % Mean Corpuscular Volume 95.6 80.0-100.0 fL Mean Corpuscular Hemoglobin 33.2 H 28.0-32.0 pg Mean Corpuscular Hemoglobin Concent 34.7 32.0-36.0 g/dL Red Cell Distribution Width 13.7 11.8-14.3 % Platelet Count 89 L 140-450 10^3/uL Mean Platelet Volume 9.5 6.9-10.8 fL Neutrophils (%) (Auto) 86.1 H 37.0-80.0 % Lymphocytes (%) (Auto) 7.0 L 10.0-50.0 % Monocytes (%) (Auto) 4.8 0.0-12.0 % Eosinophils (%) (Auto) 2.0 0.0-7.0 % Basophils (%) (Auto) 0.1 0.0-2.0 % Neutrophils # (Auto) 8.4 1.6-8.6 10 ^3/uL Lymphocytes # (Auto) 0.7 0.4-5.4 10 ^3/uL Monocytes # (Auto) 0.5 0-1.3 10 ^3/uL Eosinophils # (Auto) 0.2 0-0.8 10 ^3/uL Basophils # (Auto) 0 0-0.2 10 ^3/uL Nucleated Red Blood Cells 0.0 % Sodium Level 136 136-145 mmol/L Potassium Level 4.7 3.5-5.1 mmol/L Chloride Level 97 L 98-107 mmol/L Carbon Dioxide Level 26 20-31 mmol/L Anion Gap 13 5-15 Blood Urea Nitrogen 48 H 9-23 mg/dL Creatinine 12.72 *H 0.700-1.30 mg/dL Glomerular Filtration Rate Calc 4 >90 mL/min BUN/Creatinine Ratio 3.8 L 10.0-20.0 Serum Glucose 135 H 74-106 mg/dL Calcium Level 8.3 L 8.7-10.4 mg/dL Total Bilirubin 0.3 0.2-1.0 mg/dL Aspartate Amino Transferase (AST) 12 L 13-40 U/L Alanine Aminotransferase (ALT) 20 7-40 U/L Alkaline Phosphatase 92 46-116 U/L B-Type Natriuretic Peptide 33.91 0-100 pg/mL Total Protein 6.8 5.7-8.2 g/dL Albumin 4.0 3.2-4.8 g/dL Lipase 36 12-53 U/L PATIENT: ALAYNA BOWERS ACCT: [id number] UNIT: [id number] : 1960 LOC: ER ROOM / BED: / AGE / SEX: 64 / M ADM STATUS: REG ER SERVICE [id number] ORDERING PHYSICIAN: JO MATIAS PAC PROCEDURE(s): ABPL - CT AB PEL WO CON-NO ORAL OR IV REASON: Diffuse abdominal pain ORDER NUMBER(s): [id number], ACCESSION NUMBER(s): [id number] CT CT AB PEL WO CON-NO ORAL OR IV INDICATION: Diffuse abdominal pain EXAM DATE: 01/22/2025 04:06 PM COMPARISON: [facility] on DOS: 11/20/21 RADIATION DOSE: CTDIvol: 24.68 mGy, DLP: 1370.21 mGy*cm PROCEDURE: Helical CT images were obtained of the abdomen and pelvis without IV contrast Sagittal and coronal reconstructions are provided. ORAL CONTRAST: None. ADDITIONAL IMAGES/REFORMATS: None All CT scans at this medical facility are performed using dose modulation techniques as appropriate to a performed exam including the following: Automated exposure control was utilized; adjustment of the MA and/or KV according to patient size; and use of iterative reconstruction technique. FINDINGS: LUNG BASE: There is bibasilar atelectasis. LIVER: There appears to be postsurgical change from a liver transplant. Gastroesophageal varices are seen. GALLBLADDER AND BILIARY TREE: No calcified gallstones. Normal caliber wall. No intra- or extrahepatic biliary ductal dilation. There is a small amount of pneumobilia. PANCREAS: Normal. SPLEEN: Normal. BOWEL: Normal. ADRENALS: Normal. KIDNEYS AND URETER: The kidneys are atrophic bilaterally. BLADDER: Normal. REPRODUCTIVE ORGANS: A penis pump is visualized. LYMPH NODES:No lymphadenopathy. PERITONEUM: Small amount of ascites. A peritoneal dialysis catheter is seen. VESSELS: Scattered atherosclerotic calcifications are noted. RETROPERITONEUM: Normal. ABDOMINAL WALL: A rim calcified elongated fluid collection is seen in the low anterior abdominal wall soft tissues. BONES: Scattered osseous degenerative changes are noted. IMPRESSION: Peritoneal dialysis catheter with small amount of ascites. Postsurgical changes from liver transplant. Small gastroesophageal varices are seen. Small amount of pneumobilia, is nonspecific. A rim calcified elongated fluid collection is seen in the low anterior abdominal wall soft tissues. SEPSIS Sepsis Screen Date sepsis recognized/suspect: Jan 22, 2025 Time Sepsis recognized/suspect: 170 Recent Procedure: No On Antibiotic Therapy: No Respiratory Rate >20: No Heart Rate >90: No Temp<36 C (96.8 F) or >38.3 C: No SBP <90 or MAP <65 mmHG: Yes New Acute Mental Status Change: No Is the patient on CPAP, BIPAP,: No IV fluid challenge completed?: No Physician Orders Troponin-I Hs (01/22/25 18:56) Electrocardigram (01/22/25 15:56) Ct Ab Pel Wo Con-No Oral Or Iv (01/22/25 15:56) Sodium Chloride 0.9% (01/22/25 16:30) Heplock Iv (01/22/25 ) Amlodipine Tablet (Norvasc Tablet) (01/23/25 10:00) Aspirin Tablet (01/23/25 10:00) B-Complex W/ C & Folic Tablet (Nephro-Vi (01/23/25 10:00) Sevelamer (Renagel) (01/23/25 08:00) *[facility] (01/22/25 18:58) Hydralazine Injection (Apresoline Inject (01/22/25 19:00) Famotidine Injection (Pepcid Injection) (01/22/25 22:00) Allergies (01/22/25 18:58) Code Status (01/22/25 18:58) Renal Standard(2gna,3gk,Lopho) (01/23/25 Breakfast) Sodium Chloride Lock (Saline Lock Ns) (01/22/25 22:00) Oxygen Per Hour (01/22/25 18:58) Hydrocodone-Acet 5/325mg Tab (Brocket 5/32 (01/22/25 19:00) Ondansetron Hcl (Zofran) (01/22/25 19:00) Docusate Sodium Capsule (Colace Capsule) (01/22/25 19:00) Complete Blood Count (01/23/25 04:00) Comprehensive Metabolic Panel (01/23/25 04:00) Condition: Serious (01/22/25 18:58) Acetaminophen Tablet (Tylenol Tablet) (01/22/25 19:00) Bedrest With Bathroom Privileg (01/22/25 18:58) Sequential Compression Device (01/22/25 ) Vital Signs Date Time Temp Pulse Resp B/P (MAP) Pulse Ox O2 Delivery O2 Flow Rate FiO2 01/22/25 20:08 103/56 01/22/25 18:15 85 15 106/65 (79) 97 01/22/25 17:45 83 16 105/55 (72) 98 01/22/25 17:15 80 13 103/65 (78) 98 01/22/25 17:00 100 Non-Rebreather 15 N/A 01/22/25 16:45 98.5 80 15 85/56 (66) 97 98.5 01/22/25 16:31 83 01/22/25 15:35 98.5 86 20 84/59 (67) 98 98.5 Laboratory Tests Test 01/22/25 17:05 01/22/25 20:25 Lactic Acid Level 2.5 mmol/L (0.4-2.0) *H Pending White Blood Count 9.8 10^3/uL (4.4-10.8) Medications Medications Dose Ordered Sig/Dahlia Route Start Time Stop Time Status Last Admin Dose Admin Dicyclomine HCl 20 mg ONCE ONCE IM 01/22/25 16:00 01/22/25 16:01 DC 01/22/25 17:06 20 MG Fentanyl Citrate 25 mcg ONCE ONCE IV 01/22/25 19:15 01/22/25 19:16 DC 01/22/25 20:08 25 MCG Ondansetron HCl 4 mg ONCE ONCE PO 01/22/25 16:00 01/22/25 16:01 DC 01/22/25 16:53 4 MG Sodium Chloride 1,000 ml @ 200 mls/hr Q5H ONCE IV 01/22/25 16:30 01/22/25 21:29 01/22/25 17:06 200 MLS/HR Assessment/Plan Assessment/Plan End-stage renal disease on peritoneal dialysis Hypotension Intractable abdominal pain Thrombocytopenia Elevated lactic acid level Anemia of chronic disease Generalized weakness Plan 1. Admit to telemetry unit 2. Breathing treatment 3. Pain control management 4. Management of fluids and electrolytes 5. Consultation for Nephrology 6. Diagnostic tests abdomen/pelvis CT 7. DVT prophylaxis-on SCDs 8. Repeat labs CBC, CMP in a.m. 9. Continue with current medical management 10. Treatment plan discussed with patient and RN. Patient verbalized understanding. Plan discussed with: Patient, Other (RN) My Orders Orders - VÍCTOR REED DNP Procedure Category Date Status Time Amlodipine Tablet PHA 01/23/25 In Process (Norvasc Tablet) 10:00 Aspirin Tablet PHA 01/23/25 In Process 10:00 B-Complex W/ C & PHA 01/23/25 In Process Folic Tablet 10:00 Sevelamer (Renagel) PHA 01/23/25 In Process 08:00 *Dr. [facility] CONS 01/22/25 Transmitted -[place] 18:58 Hydralazine Injection PHA 01/22/25 In Process (Apresoline Inject 19:00 Famotidine Injection PHA 01/22/25 In Process (Pepcid Injection) 22:00 Allergies JUAN A 01/22/25 In Process 18:58 Code Status CODE 01/22/25 Transmitted 18:58 Renal DIET 01/23/25 Transmitted Standard(2gna,3gk,Lopho) Breakfast Sodium Chloride Lock PHA 01/22/25 In Process (Saline Lock Ns) 22:00 Oxygen Per Hour RT 01/22/25 Transmitted 18:58 Hydrocodone-Acet PHA 01/22/25 In Process 5/325mg Tab (Brocket 19:00 Ondansetron Hcl PHA 01/22/25 In Process (Zofran) 19:00 Docusate Sodium PHA 01/22/25 In Process Capsule (Colace 19:00 Complete Blood Count LAB 01/23/25 Verified 04:00 Comprehensive LAB 01/23/25 Verified Metabolic Panel 04:00 Condition: Serious JUAN A 01/22/25 In Process 18:58 Acetaminophen Tablet PHA 01/22/25 In Process (Tylenol Tablet) 19:00 Bedrest With Bathroom [facility] 01/22/25 In Process Privileg 18:58 Sequential [facility] 01/22/25 In Process Compression Device Problem List: (1) End-stage renal disease on peritoneal dialysis (2) Hypotension (3) Intractable abdominal pain (4) Thrombocytopenia (5) Elevated lactic acid level (6) Anemia of chronic disease (7) Generalized weakness Date of Service: Jan 22, 2025 Billing Provider: VÍCTOR REED DNP Common Visit Codes: [id number] INP/OBS CARE (HIGH) VÍCTOR REED DNP Jan 22, 2025 21:03
[2025-01-22] MEDS: FAMOTIDINE (10MG/ML) 2ML VL IV SCH (22:18)
[2025-01-22] MEDS: SODIUM CHLOR 0.9% PF (SALINE LOCK) 10ML VIAL/SYR IV SCH (22:18)
[2025-01-23] VITALS (10 sets, daily range): BP systolic 90–123; BP diastolic 56–80; PULSE 72–88; RESP 16–19; TEMP 97.3–98.7; O2SAT 92–98
[2025-01-23] MEDS: HYDROcodone-ACET 5/325MG TAB PO PRN (01:44)
[2025-01-23 07:22] LABS: Hematocrit 26.9 % (41.0-53.0); Hemoglobin 9.4 g/dL (13.5-17.5); Mean Corpuscular Hemoglobin 33.4 pg (28.0-32.0); Mean Corpuscular Volume 95.3 fL (80.0-100.0); Nucleated Red Blood Cells % 0.0 %
[2025-01-23 07:46] LABS: Alanine Aminotransferase 14 U/L (7-40); Albumin 3.5 g/dL (3.2-4.8); Alkaline Phosphatase 71 U/L (46-116); Anion Gap 9 (5-15); BUN/Creatinine Ratio 3.9 (10.0-20.0); Calcium 8.9 mg/dL (8.7-10.4); Carbon Dioxide 26 mmol/L (20-31); Chloride 99 mmol/L (98-107); Glucose 94 mg/dL (74-106); Total Protein 6.3 g/dL (5.7-8.2)
[2025-01-23 07:49] LABS: Bilirubin, Total 0.2 mg/dL (0.2-1.0); Blood Urea Nitrogen 52 mg/dL (9-23); Sodium 134 mmol/L (136-145)
[2025-01-23 07:53] LABS: Potassium 5.6 mmol/L (3.5-5.1)
[2025-01-23] MEDS: B-COMPLEX W/ C & FOLIC ACID(NEPHROVITE TAB) PO SCH (09:04)
[2025-01-23] MEDS: SEVELAMER 800 MG TAB PO SCH (09:05)
[2025-01-23] MEDS ORDERED: VANCOMYCIN 1GM/200ML PM 250 ML IV ONE (16:45)
--- NOTE | 2025-01-23 17:44 | DVHINCON2 ---
Date of service: Jan 23, 2025 Referring Physician Bailey Reason for Consultation Abdominal pain History of Present Illness Patient is a 64-year-old male with history diabetes, hypertension, hyperlipidemia end-stage renal disease on peritoneal dialysis, history of liver transplant, who was admitted with abdominal pain, and symptoms of diarrhea. Patient was having these symptoms for two days. Patient's states he thinks it was after eating sushi. He denies any new medication or ill contacts. Patient has been receiving peritoneal dialysis for end-stage renal disease. He denies any fevers although he has had some chills. Denies any melena, hematochezia or hematemesis. Denies any recent diarrheal illnesses similar to this. Patient had a CT scan showing some varices consistent with possible cirrhosis. Past Medical History As above Past Surgical History As above Family History: Diabetes mellitus DAD, Onset:30s - 40 Kidney stones G8 MOTHER Family History No gastrointestinal diseases or malignancies Social History No Tobacco alcohol or recreational drug use Allergies: Coded Allergies: NO KNOWN ALLERGIES (Unverified , 07/22/19) Home Meds Active Scripts Apixaban Base (ELIQUIS) 5 Mg Tab, 10 MG PO BID for 7 Days, #14 TAB 10MG BID X 7 DAYS THEN 5MG PO BID FOR AT LEAST 6 MONTHS FOR DVT/PE TREATMENT Prov:JOANN MCGEE MD 11/21/21 Apixaban Base (ELIQUIS) 5 Mg Tab, 5 MG PO BID, #180 TAB Prov:JOANN MCGEE MD 11/21/21 Apixaban Base (ELIQUIS) 5 Mg Tab, 5 MG PO BID, #180 TAB Prov:JOANN MCGEE MD 11/21/21 Calcium Acetate (PHOSLO CAPSULE) 667 Mg Cp, 2 CAP PO TID, #180 CAP 5 Refills Prov:JOANN MCGEE MD 11/21/21 B-Complex W/ C & Folic Acid (Nephro-Steve Rx) 1 Tab Tb, 1 TAB PO DAILY, #90 TAB Prov:JOANN MCGEE MD 11/21/21 Ferrous Sulfate (Iron) 325 Mg Tab, 325 MG PO BID, #180 TAB Prov:JOANN MCGEE MD 08/08/21 Pantoprazole Sodium Sesquihydr (Protonix) 40 Mg Tab, 40 MG PO DAILY for 14 Days, #14 TAB Prov:TINY VILLA MD 02/15/20 Blood Glucose Monitoring Suppl (D-Care Glucometer Kit/Glu W/Device) 1 Kit Kit, KIT XX, #1 Prov:LENORA IRWIN MD 08/22/19 Aspirin (Aspir-Low Ec) 81 Mg Tb, 1 TAB PO DAILY, #30 TAB 3 Refills Prov:LENORA IRWIN MD 08/22/19 Sitagliptin Phosphate (Januvia) 50 Mg Tab, 1 TAB PO DAILY, #30 TAB 5 Refills Prov:LENORA IRWIN MD 08/22/19 Reported Medications Calcitriol (Calcitriol) 0.5 Mcg Cap, 1 CAP PO DAILY 05/25/21 Gabapentin (Gabapentin) 100 Mg Cap, 3 CAP PO TID 05/25/21 Fludrocortisone Acetate (Fludrocortisone Acetate) 0.1 Mg Tab, 1 TAB PO DAILY 05/25/21 Calcium Carbonate (Antacid) (Gnp Antacid) 500 Mg Chw, 1 TAB PO BID 05/25/21 Sodium Bicarbonate (Sodium Bicarbonate) 650 Mg Tab, 1 TAB PO DAILY 05/25/21 Hydralazine Hcl (Hydralazine Hcl) 50 Mg Tab, 1 TAB PO BID 05/25/21 Losartan Potassium (Losartan Potassium) 25 Mg Tab, 1 TAB PO HS 05/25/21 Tacrolimus (Tacrolimus) 1 Mg Cap, 0 PO UD TAKE 5 CAPS PO QAM & 4 CAPS PO QPM 09/29/20 Amlodipine Besylate (NORVASC TABLET) 5 Mg Tb, 1 TAB PO DAILY 09/29/20 Febuxostat (Febuxostat) 80 Mg Tab, 80 MG PO QAM 09/29/20 Mycophenolate Mofetil (Mycophenolate Mofetil) 250 Mg Cap, 250 MG PO BID 09/29/20 Cholecalciferol (D3 Maximum Strength) 5,000 Unit Cap, 5000 UNIT PO DAILY, CAP 08/15/19 Current Medications Current Medications Medications (Trade) Dose Ordered Sig/Dahlia Route PRN Reason Start Time Stop Time Status Last Admin Amlodipine Besylate (Norvasc Tablet) 5 mg DAILY PO 01/23/25 10:00 01/23/25 09:05 Aspirin 81 mg DAILY PO 01/23/25 10:00 Multivit/Ca Carb/ B Cmplx/FA/Prenat (Nephro-Steve Tablet) 1 tab DAILY PO 01/23/25 10:00 01/23/25 09:04 Sevelamer HCl (Renagel) 800 mg TIDWM PO 01/23/25 08:00 01/23/25 12:19 Hydralazine HCl (Apresoline Injection) 10 mg Q6HP PRN IV SBP>150 01/22/25 19:00 Famotidine (Pepcid Injection) 20 mg Q12HR IV 01/22/25 22:00 01/23/25 09:04 Sodium Chloride (Saline Lock Ns) 10 ml Q8HR IV 01/22/25 22:00 01/23/25 14:00 Acetaminophen/ Hydrocodone Bitart (Kemp 5/325MG Tab) 1 tab Q4HP PRN PO MODERATE PAIN (4-6 PAIN SCALE) 01/22/25 19:00 01/23/25 01:44 Ondansetron HCl (Zofran) 4 mg Q4HP PRN IV NAUSEA / VOMITING 01/22/25 19:00 Docusate Sodium (Colace Capsule) 100 mg BIDPRN PRN PO FOR CONSTIPATION 01/22/25 19:00 Acetaminophen (Tylenol Tablet) 650 mg Q6HP PRN PO PAIN SCALE 1-3 OR TEMP>100.4 01/22/25 19:00 Nitroglycerin (Ntrostat Sublingual) 0.4 mg Q5MINP PRN SL FOR CHEST PAIN 01/22/25 20:45 Morphine Sulfate 2 mg Q30M PRN IV FOR CHEST PAIN 01/22/25 20:45 Vancomycin HCl 250 ml @ 250 mls/hr Q1H IV 01/24/25 10:00 01/24/25 10:00 UNV Ceftazidime/ Dextrose 1 gm/ Sodium Chloride 50 ml @ 16.667 mls/ hr DAILY@2000 IV 01/24/25 20:00 Peritoneal Dialysis Solution 2,000 ml Q6HR IP 01/23/25 18:00 01/23/25 17:15 DC Vancomycin HCl 0 ml @ 0 mls/hr UD IV 01/24/25 10:00 01/23/25 17:31 DC Peritoneal Dialysis Solution 2,000 ml Q6HR IP 01/23/25 20:00 Review of Systems Review of systems as per HPI Vital Signs Vital Signs Date Time Temp Pulse Resp B/P (MAP) Pulse Ox O2 Delivery O2 Flow Rate FiO2 7/20/25 13:00 98.2 72 16 100/67 (78) 98 98.2 01/23/25 08:00 Room Air* 0 21 Physical Exam General: Alert and oriented male no distress HEENT: NC/AT EOMI PERRLA-will be cleared no JVD Heart: Regular rate and rhythm Abdomen: Soft, mild epigastric tenderness per patient nondistended No clubbing cyanosis or edema Cranial nerves grossly intact moves all four extremities Labs/Diagnostic Data Labs Test 01/23/25 07:11 01/22/25 20:25 01/22/25 17:05 Range/Units White Blood Count 6.7 # 4.4-10.8 10^3/uL Red Blood Count 2.82 L 4.5-5.90 10^6/uL Hemoglobin 9.4 L 13.5-17.5 g/dL Hematocrit 26.9 #L 41.0-53.0 % Mean Corpuscular Volume 95.3 80.0-100.0 fL Mean Corpuscular Hemoglobin 33.4 H 28.0-32.0 pg Mean Corpuscular Hemoglobin Concent 35.1 32.0-36.0 g/dL Red Cell Distribution Width 13.2 11.8-14.3 % Platelet Count 63 L 140-450 10^3/uL Mean Platelet Volume 8.9 6.9-10.8 fL Neutrophils (%) (Auto) 82.1 H 37.0-80.0 % Lymphocytes (%) (Auto) 8.4 L 10.0-50.0 % Monocytes (%) (Auto) 7.2 0.0-12.0 % Eosinophils (%) (Auto) 1.8 0.0-7.0 % Basophils (%) (Auto) 0.5 0.0-2.0 % Neutrophils # (Auto) 5.5 1.6-8.6 10 ^3/uL Lymphocytes # (Auto) 0.6 0.4-5.4 10 ^3/uL Monocytes # (Auto) 0.5 0-1.3 10 ^3/uL Eosinophils # (Auto) 0.1 0-0.8 10 ^3/uL Basophils # (Auto) 0 0-0.2 10 ^3/uL Nucleated Red Blood Cells 0.0 % Sodium Level 134 L 136-145 mmol/L Potassium Level 5.6 *H 3.5-5.1 mmol/L Chloride Level 99 98-107 mmol/L Carbon Dioxide Level 26 20-31 mmol/L Anion Gap 9 5-15 Blood Urea Nitrogen 52 H 9-23 mg/dL Creatinine 13.17 *H 0.700-1.30 mg/dL Glomerular Filtration Rate Calc 4 >90 mL/min BUN/Creatinine Ratio 3.9 L 10.0-20.0 Serum Glucose 94 74-106 mg/dL Calcium Level 8.9 8.7-10.4 mg/dL Total Bilirubin 0.2 0.2-1.0 mg/dL Aspartate Amino Transferase (AST) 9 L 13-40 U/L Alanine Aminotransferase (ALT) 14 7-40 U/L Alkaline Phosphatase 71 46-116 U/L Total Protein 6.3 5.7-8.2 g/dL Albumin 3.5 3.2-4.8 g/dL Lactic Acid Level 1.5 0.4-2.0 mmol/L Troponin I High Sensitivity 10 </=54 ng/L B-Type Natriuretic Peptide 33.91 0-100 pg/mL Lipase 36 12-53 U/L Assessment 1. History of liver transplantation 2. Cirrhosis 3. End-stage renal disease on peritoneal dialysis 4. Abdominal pain, questioned food poisoning versus infection versus other 5. Anemia 6. Diarrhea 7. Thrombocytopenia Problems(with codes): (1) Liver failure (2) End stage renal disease (3) Uncontrolled hypertension (4) Chronic kidney disease (5) Acute renal failure (6) Thrombocytopenia (7) Intractable abdominal pain Plan/Recommendation 1. Continue with antibiotics 2. Diet as tolerated 3. No endoscopy or colonoscopy indicated at this time 4. Follow labs 5. Patient will need EGD at some point in time given his cirrhosis and varices seen on imaging six. I will be signing off to Dr. Boswell Plan discussed with: Patient BRIAN REYES MD Jan 23, 2025 17:44
[2025-01-23] MEDS ORDERED: PERITONEAL DIALYSIS Soln 1.5% 2000ml IP SCH (18:00)
[2025-01-23] MEDS ORDERED: VANCOMYCIN PER PHARMACY 0 MG IV SCH (18:45)
--- NOTE | 2025-01-23 19:29 | DVHINCON2 ---
Date of service: Jan 23, [address] Madrid Reason for Consultation ESRD and PD therapy management History of Present Illness Florencia Moore is a 64-year-old M with Past Medical History pertinent for End-stage renal disease on peritoneal dialysis, Diabetes Mellitus, GERD, Hyperlipidemia, Liver disease, Hyperlipidemia and hypertension who presented to the hospital with complaint of abdominal pain. Patient reports he has been experiencing epigastric abdominal pain associated with nausea, vomiting, generalized weakness, shortness of breaths, progressively worsening prompting visit to ED. During ED course, initial labs were remarkable for WBC 9.8, Hgb 10.8, HCT 31.0, Platelets 89, Na 136, K 4.7, BUN 48, Creatinine 12.72, Glucose 135, Calcium 8.3, BNP 33.91, Lipase 36, Lactic acid 2.5. CT Abdomen/pelvis reported peritoneal dialysis catheter with small amount of ascites, postsurgical changes from liver transplant, small gastroesophageal varices seen, small amount of pneumobilia, is nonspecific. Allergies: Coded Allergies: NO KNOWN ALLERGIES (Unverified , 07/22/19) Home Meds Active Scripts Apixaban Base (ELIQUIS) 5 Mg Tab, 10 MG PO BID for 7 Days, #14 TAB 10MG BID X 7 DAYS THEN 5MG PO BID FOR AT LEAST 6 MONTHS FOR DVT/PE TREATMENT Prov:JOANN MCGEE MD 11/21/21 Apixaban Base (ELIQUIS) 5 Mg Tab, 5 MG PO BID, #180 TAB Prov:JOANN MCGEE MD 11/21/21 Apixaban Base (ELIQUIS) 5 Mg Tab, 5 MG PO BID, #180 TAB Prov:JOANN MCGEE MD 11/21/21 Calcium Acetate (PHOSLO CAPSULE) 667 Mg Cp, 2 CAP PO TID, #180 CAP 5 Refills Prov:JOANN MCGEE MD 11/21/21 B-Complex W/ C & Folic Acid (Nephro-Steve Rx) 1 Tab Tb, 1 TAB PO DAILY, #90 TAB Prov:JOANN MCGEE MD 11/21/21 Ferrous Sulfate (Iron) 325 Mg Tab, 325 MG PO BID, #180 TAB Prov:JOANN MCGEE MD 08/08/21 Pantoprazole Sodium Sesquihydr (Protonix) 40 Mg Tab, 40 MG PO DAILY for 14 Days, #14 TAB Prov:TINY VILLA MD 02/15/20 Blood Glucose Monitoring Suppl (D-Care Glucometer Kit/Glu W/Device) 1 Kit Kit, KIT XX, #1 Prov:LENORA IRWIN MD 08/22/19 Aspirin (Aspir-Low Ec) 81 Mg Tb, 1 TAB PO DAILY, #30 TAB 3 Refills Prov:LENORA IRWIN MD 08/22/19 Sitagliptin Phosphate (Januvia) 50 Mg Tab, 1 TAB PO DAILY, #30 TAB 5 Refills Prov:LENORA IRWIN MD 08/22/19 Reported Medications Calcitriol (Calcitriol) 0.5 Mcg Cap, 1 CAP PO DAILY 05/25/21 Gabapentin (Gabapentin) 100 Mg Cap, 3 CAP PO TID 05/25/21 Fludrocortisone Acetate (Fludrocortisone Acetate) 0.1 Mg Tab, 1 TAB PO DAILY 05/25/21 Calcium Carbonate (Antacid) (Gnp Antacid) 500 Mg Chw, 1 TAB PO BID 05/25/21 Sodium Bicarbonate (Sodium Bicarbonate) 650 Mg Tab, 1 TAB PO DAILY 05/25/21 Hydralazine Hcl (Hydralazine Hcl) 50 Mg Tab, 1 TAB PO BID 05/25/21 Losartan Potassium (Losartan Potassium) 25 Mg Tab, 1 TAB PO HS 05/25/21 Tacrolimus (Tacrolimus) 1 Mg Cap, 0 PO UD TAKE 5 CAPS PO QAM & 4 CAPS PO QPM 09/29/20 Amlodipine Besylate (NORVASC TABLET) 5 Mg Tb, 1 TAB PO DAILY 09/29/20 Febuxostat (Febuxostat) 80 Mg Tab, 80 MG PO QAM 09/29/20 Mycophenolate Mofetil (Mycophenolate Mofetil) 250 Mg Cap, 250 MG PO BID 09/29/20 Cholecalciferol (D3 Maximum Strength) 5,000 Unit Cap, 5000 UNIT PO DAILY, CAP 08/15/19 Current Medications Current Medications Medications (Trade) Dose Ordered Sig/Dahlia Route PRN Reason Start Time Stop Time Status Last Admin Amlodipine Besylate (Norvasc Tablet) 5 mg DAILY PO 01/23/25 10:00 01/23/25 09:05 Aspirin 81 mg DAILY PO 01/23/25 10:00 Multivit/Ca Carb/ B Cmplx/FA/Prenat (Nephro-Steve Tablet) 1 tab DAILY PO 01/23/25 10:00 01/23/25 09:04 Sevelamer HCl (Renagel) 800 mg TIDWM PO 01/23/25 08:00 01/23/25 17:56 Famotidine (Pepcid Injection) 20 mg Q12HR IV 01/22/25 22:00 01/23/25 09:04 Sodium Chloride (Saline Lock Ns) 10 ml Q8HR IV 01/22/25 22:00 01/23/25 14:00 Nitroglycerin (Ntrostat Sublingual) 0.4 mg Q5MINP PRN SL FOR CHEST PAIN 01/22/25 20:45 Morphine Sulfate 2 mg Q30M PRN IV FOR CHEST PAIN 01/22/25 20:45 Vancomycin HCl 250 ml @ 250 mls/hr Q1H IV 01/24/25 10:00 01/24/25 10:00 UNV Ceftazidime/ Dextrose 1 gm/ Sodium Chloride 50 ml @ 16.667 mls/ hr DAILY@2000 IV 01/24/25 20:00 Peritoneal Dialysis Solution 2,000 ml Q6HR IP 01/23/25 18:00 01/23/25 17:15 DC Vancomycin HCl 0 ml @ 0 mls/hr UD IV 01/23/25 18:45 Vancomycin HCl 0 ml @ 0 mls/hr UD IV 01/24/25 10:00 01/23/25 17:31 DC Peritoneal Dialysis Solution 2,000 ml Q6HR IP 01/23/25 20:00 Family History: Diabetes mellitus DAD, Onset:30's - 40 Kidney stones G8 MOTHER Review of Systems Constitutional: Yes: Weakness; No: Fever, Chills, Sweats, Malaise, Other Respiratory: Shortness of breath; No: Cough, Dry, SOB with excertion, Wheezing, Hemoptysis, Pleuritic Pain, Sputum, Wheezing, Other Cardiovascular: No: Chest Pain, Palpitations, Orthopnea, Paroxysmal Noc. Dyspnea, Edema, Lt Headedness, Other Gastrointestinal: Nausea, Vomiting, Abdominal Pain, Other (Peritoneal port); No: Diarrhea, Constipation, Melena, Hematochezia Neurological: No: Weakness, Numbness, Incoordination, Change in speech, Confusion, Seizures, Other Other systems reviewed and negative unless otherwise noted in HPI. H&P Exam Vital Signs/I&O Vital Sign Date Time Temp Pulse Resp B/P (MAP) Pulse Ox O2 Delivery O2 Flow Rate FiO2 01/23/25 17:00 97.8 84 18 123/80 (94) 97 97.8 01/23/25 08:00 Room Air* 0 21 Intake and Output 01/22/25 01/23/25 19:00 07:00 Intake Total 1300 ml Output Total 1 ml Balance 1299 ml Intake Oral 300 ml IV Total 1000 ml Output Stool Total 1 ml # Bowel Movements 1 Physical Exam Vitals and nursing notes reviewed. General Appearance: Cooperative, No acute distress HEENT: Atraumatic, PERRLA, EOMI, Mucous membr. moist/pink Respiratory: Normal air movement Cardiovascular: Regular rate, Normal S1, Normal S2, No murmurs Abdominal: Normal bowel sounds, Soft, No hepatospenomegaly, No masses, Other (Reports tenderness) Extremities: No clubbing, No cyanosis, No edema, Normal pulses, No tenderness/swelling Skin: No rashes, No significant lesion Neuro: Alert, Oriented X3, Normal speech, Normal tone, Sensation intact, Cranial nerves 3-12 NL, Reflexes 2+, Other (Generalized weakness) Psych/Mental Status: Mental status NL, Mood NL Labs/Diagnostic Data Labs/Diagnostic Data Laboratory Tests Test 01/23/25 07:11 01/22/25 20:25 01/22/25 18:16 01/22/25 17:05 Range/Units White Blood Count 6.7 # 9.8 4.4-10.8 10^3/uL Red Blood Count 2.82 L 3.24 L 4.5-5.90 10^6/uL Hemoglobin 9.4 L 10.8 L 13.5-17.5 g/dL Hematocrit 26.9 #L 31.0 L 41.0-53.0 % Mean Corpuscular Volume 95.3 95.6 80.0-100.0 fL Mean Corpuscular Hemoglobin 33.4 H 33.2 H 28.0-32.0 pg Mean Corpuscular Hemoglobin Concent 35.1 34.7 32.0-36.0 g/dL Red Cell Distribution Width 13.2 13.7 11.8-14.3 % Platelet Count 63 L 89 L 140-450 10^3/uL Mean Platelet Volume 8.9 9.5 6.9-10.8 fL Neutrophils (%) (Auto) 82.1 H 86.1 H 37.0-80.0 % Lymphocytes (%) (Auto) 8.4 L 7.0 L 10.0-50.0 % Monocytes (%) (Auto) 7.2 4.8 0.0-12.0 % Eosinophils (%) (Auto) 1.8 2.0 0.0-7.0 % Basophils (%) (Auto) 0.5 0.1 0.0-2.0 % Neutrophils # (Auto) 5.5 8.4 1.6-8.6 10 ^3/uL Lymphocytes # (Auto) 0.6 0.7 0.4-5.4 10 ^3/uL Monocytes # (Auto) 0.5 0.5 0-1.3 10 ^3/uL Eosinophils # (Auto) 0.1 0.2 0-0.8 10 ^3/uL Basophils # (Auto) 0 0 0-0.2 10 ^3/uL Nucleated Red Blood Cells 0.0 0.0 % Sodium Level 134 L 136 136-145 mmol/L Potassium Level 5.6 *H 4.7 3.5-5.1 mmol/L Chloride Level 99 97 L 98-107 mmol/L Carbon Dioxide Level 26 26 20-31 mmol/L Anion Gap 9 13 5-15 Blood Urea Nitrogen 52 H 48 H 9-23 mg/dL Creatinine 13.17 *H 12.72 *H 0.700-1.30 mg/dL Glomerular Filtration Rate Calc 4 4 >90 mL/min BUN/Creatinine Ratio 3.9 L 3.8 L 10.0-20.0 Serum Glucose 94 135 H 74-106 mg/dL Calcium Level 8.9 8.3 L 8.7-10.4 mg/dL Total Bilirubin 0.2 0.3 0.2-1.0 mg/dL Aspartate Amino Transferase (AST) 9 L 12 L 13-40 U/L Alanine Aminotransferase (ALT) 14 20 7-40 U/L Alkaline Phosphatase 71 92 46-116 U/L Total Protein 6.3 6.8 5.7-8.2 g/dL Albumin 3.5 4.0 3.2-4.8 g/dL Lactic Acid Level 1.5 2.5 *H 0.4-2.0 mmol/L Troponin I High Sensitivity 10 13 13 </=54 ng/L B-Type Natriuretic Peptide 33.91 0-100 pg/mL Lipase 36 12-53 U/L Assessment Intractable abdominal pain End-stage renal disease on peritoneal dialysis Hypotension Thrombocytopenia Elevated lactic acid level Anemia of chronic disease Generalized weakness Plan/Recommendation Agreement with your ongoing assessment and plan of care. GI consult as recommended. Obtain peritoneal fluid sample and send for culture testing. Resume PD with 1.5% dialysate. Empirical IV antibiotics with Vancomycin and Ceftazidime. Reconcile and resume home medications. Pain management prn. Additional plan as per the hospital course. Plan discussed with: Patient, Other (RN) DEQUAN MAN DO Jan 23, 2025 19:29
[2025-01-23] MEDS: cefTAZidime 1 GM in SODIUM CHL 0.9% 50 ML IV ONE (20:00)
[2025-01-23] MEDS: PERITONEAL DIALYSIS Soln 1.5% 2000ml IP SCH (20:25)
[2025-01-24] VITALS (7 sets, daily range): BP systolic 100–134; BP diastolic 55–73; PULSE 65–78; RESP 16–18; TEMP 97.7–98.8; O2SAT 95–100
[2025-01-24] MEDS: PERITONEAL DIALYSIS Soln 1.5% 2000ml IP SCH (02:00)
[2025-01-24 07:22] LABS: Alanine Aminotransferase 14 U/L (7-40); Alkaline Phosphatase 68 U/L (46-116); Anion Gap 13 (5-15); BUN/Creatinine Ratio 4.2 (10.0-20.0); Carbon Dioxide 24 mmol/L (20-31)
[2025-01-24 07:32] LABS: Albumin 2.9 g/dL (3.2-4.8); Bilirubin, Total < 0.2 mg/dL (0.2-1.0); Blood Urea Nitrogen 58 mg/dL (9-23); Calcium 7.5 mg/dL (8.7-10.4); Chloride 97 mmol/L (98-107); Glucose 115 mg/dL (74-106); Potassium 5.4 mmol/L (3.5-5.1); Sodium 134 mmol/L (136-145); Total Protein 5.1 g/dL (5.7-8.2)
[2025-01-24] MEDS ORDERED: VANCOMYCIN PER PHARMACY 0 MG IV SCH (10:00)
[2025-01-24] MEDS ORDERED: VANCOMYCIN 1GM/200ML PM 250 ML IV SCH (10:00)
--- NOTE | 2025-01-24 13:23 | DVHPN2 ---
Subjective Patient admits to feeling better Decrease abdominal pain No loose stool today No bowel movements today No melena or red blood in stool Changes from previous H/P or p: No Changes Eyes: No Pain, No Vision change, No Conjunctivae inflammation, No Eyelid inflammation, No Other, No Redness ENT: No Ear pain, No Ear discharge, No Nose pain, No Nose discharge, No Nose congestion, No Mouth pain, No Mouth swelling, No Throat pain, No Throat swelling, No Other Cardiovascular: No Chest Pain, No Palpitations, No Orthopnea, No Paroxysmal Noc. Dyspnea, No Edema, No Lt Headedness, No Other Respiratory: No Cough, No Dry; Shortness of breath; No SOB with excertion, No Wheezing, No Hemoptysis, No Pleuritic Pain, No Sputum, No Other Gastrointestinal: Nausea, Vomiting, Abdominal Pain; No Diarrhea, No Constipation, No Melena, No Hematochezia; Other (Peritoneal port) Genitourinary: No Dysuria, No Frequency, No Incontinence, No Hematuria, No Retention; Other (On peritoneal dialysis) Musculoskeletal: No other, No neck pain, No shoulder pain, No arm pain, No back pain, No hand pain, No leg pain, No foot pain Skin: No Rash, No Lesions, No Jaundice, No Bruising, No Other Objective Vitals Vital Signs Date Time Temp Pulse Resp B/P (MAP) Pulse Ox O2 Delivery O2 Flow Rate FiO2 01/24/25 09:00 98.6 68 18 100/64 (76) 95 98.6 01/24/25 08:00 Room Air* 0 21 Intake/Output Intake and Output 01/24/25 07:00 Intake Total 4558 ml Balance 4558 ml Intake Oral 358 ml IV Total 200 ml Other 4000 ml # Bowel Movements 1 General Appearance: Alert, Oriented X3, Cooperative, No acute distress, mild distress, moderate distress, severe distress, Other Lungs: Clear to auscultation, Normal air movement, Other Cardiovascular: Regular rate, Normal S1, Normal S2, No murmurs, Gallops, Rubs, Other Abdomen: Normal bowel sounds, Soft, No tenderness, No hepatospenomegaly, No masses, Other Medications Current Medications Medications Dose Ordered Sig/Dahlia Route Start Time Stop Time Status Last Admin Dose Admin Amlodipine Besylate 5 mg DAILY PO 01/23/25 10:00 01/24/25 07:55 5 MG Aspirin 81 mg DAILY PO 01/23/25 10:00 Multivit/Ca Carb/ B Cmplx/FA/Prenat 1 tab DAILY PO 01/23/25 10:00 01/24/25 07:55 1 TAB Sevelamer HCl 800 mg TIDWM PO 01/23/25 08:00 01/24/25 07:55 800 MG Hydralazine HCl 10 mg Q6HP PRN IV 01/22/25 19:00 Famotidine 20 mg Q12HR IV 01/22/25 22:00 01/24/25 07:54 20 MG Sodium Chloride 10 ml Q8HR IV 01/22/25 22:00 01/24/25 06:18 10 ML Acetaminophen/ Hydrocodone Bitart 1 tab Q4HP PRN PO 01/22/25 19:00 01/23/25 17:56 1 TAB Ondansetron HCl 4 mg Q4HP PRN IV 01/22/25 19:00 Docusate Sodium 100 mg BIDPRN PRN PO 01/22/25 19:00 Acetaminophen 650 mg Q6HP PRN PO 01/22/25 19:00 Nitroglycerin 0.4 mg Q5MINP PRN SL 01/22/25 20:45 Morphine Sulfate 2 mg Q30M PRN IV 01/22/25 20:45 Vancomycin HCl 250 ml @ 250 mls/hr Q1H IV 01/24/25 10:00 01/24/25 10:00 UNV Ceftazidime/ Dextrose 1 gm/ Sodium Chloride 50 ml @ 16.667 mls/ hr DAILY@2000 IV 01/24/25 20:00 Vancomycin HCl 0 ml @ 0 mls/hr UD IV 01/23/25 18:45 Peritoneal Dialysis Solution 2,000 ml Q6H IP 01/24/25 02:00 01/24/25 07:59 2,000 ML Laboratory Results Laboratory Tests 01/23/25 07:11 01/24/25 05:05 Chemistry Test 01/24/25 05:05 Albumin 2.9 g/dL (3.2-4.8) L Calcium Level 7.5 mg/dL (8.7-10.4) L Total Protein 5.1 g/dL (5.7-8.2) L LFT Test 01/24/25 05:05 Alanine Aminotransferase (ALT) 14 U/L (7-40) Alkaline Phosphatase 68 U/L (46-116) Aspartate Amino Transferase (AST) 12 U/L (13-40) L Total Bilirubin < 0.2 mg/dL (0.2-1.0) L Labs and/or images reviewed: Labs reviewed by me, Image(s) reviewed by me Assessment/Plan Assessment/Plan Abdominal pain improving History of liver transplant Cirrhosis ESRD on peritoneal dialysis Diarrhea improving Anemia Thrombocytopenia Plan Discussed with Dr. Boswell Continue current treatment Outpatient GI follow-up recommended for elective procedures as needed Diet as tolerated Patient wants to be discharged home for peritoneal dialysis Plan discussed with: Patient, Other (RN) Date of Service: Jan 24, 2025 Billing Provider: VICKI MCGEE Common Visit Codes: [id number] INP/OBS CARE(HIGH) VICKI MCGEE Jan 24, 2025 13:23
--- NOTE | 2025-01-24 14:31 | DVHPN2 ---
Reviewed: Care Plan, H&P, Labs, Medications, Previous Orders Changes from previous H/P or p: No Changes General: Per HPI Eyes: No Pain, No Vision change, No Conjunctivae inflammation, No Eyelid inflammation, No Other, No Redness ENT: No Ear pain, No Ear discharge, No Nose pain, No Nose discharge, No Nose congestion, No Mouth pain, No Mouth swelling, No Throat pain, No Throat swelling, No Other Cardiovascular: No Chest Pain, No Palpitations, No Orthopnea, No Paroxysmal Noc. Dyspnea, No Edema, No Lt Headedness, No Other Respiratory: No Cough, No Dry; Shortness of breath; No SOB with excertion, No Wheezing, No Hemoptysis, No Pleuritic Pain, No Sputum, No Other Gastrointestinal: Nausea, Vomiting, Abdominal Pain; No Diarrhea, No Constipation, No Melena, No Hematochezia; Other (Peritoneal port) Genitourinary: No Dysuria, No Frequency, No Incontinence, No Hematuria, No Retention; Other (On peritoneal dialysis) Musculoskeletal: No other, No neck pain, No shoulder pain, No arm pain, No back pain, No hand pain, No leg pain, No foot pain Skin: No Rash, No Lesions, No Jaundice, No Bruising, No Other Objective Vitals Vital Signs Date Time Temp Pulse Resp B/P (MAP) Pulse Ox O2 Delivery O2 Flow Rate FiO2 01/24/25 09:00 98.6 68 18 100/64 (76) 95 98.6 01/24/25 08:00 Room Air* 0 21 Intake/Output Intake and Output 01/24/25 07:00 Intake Total 4558 ml Balance 4558 ml Intake Oral 358 ml IV Total 200 ml Other 4000 ml # Bowel Movements 1 General Appearance: Alert, Oriented X3, Cooperative, No acute distress, mild distress, moderate distress, severe distress, Other Lungs: Clear to auscultation, Normal air movement, Other Cardiovascular: Regular rate, Normal S1, Normal S2, No murmurs, Gallops, Rubs, Other Abdomen: Normal bowel sounds, Soft, No tenderness, No hepatospenomegaly, No masses, Other Medications Current Medications Medications Dose Ordered Sig/Dahlia Route Start Time Stop Time Status Last Admin Dose Admin Amlodipine Besylate 5 mg DAILY PO 01/23/25 10:00 01/24/25 07:55 5 MG Aspirin 81 mg DAILY PO 01/23/25 10:00 Multivit/Ca Carb/ B Cmplx/FA/Prenat 1 tab DAILY PO 01/23/25 10:00 01/24/25 07:55 1 TAB Sevelamer HCl 800 mg TIDWM PO 01/23/25 08:00 01/24/25 07:55 800 MG Hydralazine HCl 10 mg Q6HP PRN IV 01/22/25 19:00 Famotidine 20 mg Q12HR IV 01/22/25 22:00 01/24/25 07:54 20 MG Sodium Chloride 10 ml Q8HR IV 01/22/25 22:00 01/24/25 06:18 10 ML Acetaminophen/ Hydrocodone Bitart 1 tab Q4HP PRN PO 01/22/25 19:00 01/23/25 17:56 1 TAB Ondansetron HCl 4 mg Q4HP PRN IV 01/22/25 19:00 Docusate Sodium 100 mg BIDPRN PRN PO 01/22/25 19:00 Acetaminophen 650 mg Q6HP PRN PO 01/22/25 19:00 Nitroglycerin 0.4 mg Q5MINP PRN SL 01/22/25 20:45 Morphine Sulfate 2 mg Q30M PRN IV 01/22/25 20:45 Vancomycin HCl 250 ml @ 250 mls/hr Q1H IV 01/24/25 10:00 01/24/25 10:00 UNV Ceftazidime/ Dextrose 1 gm/ Sodium Chloride 50 ml @ 16.667 mls/ hr DAILY@2000 IV 01/24/25 20:00 Vancomycin HCl 0 ml @ 0 mls/hr UD IV 01/23/25 18:45 Peritoneal Dialysis Solution 2,000 ml Q6H IP 01/24/25 02:00 01/24/25 07:59 2,000 ML Ceftazidime/ Dextrose 0.5 gm/ Sodium Chloride 50 ml @ 100 mls/hr DAILY@2200 IV 01/24/25 22:00 Laboratory Results Laboratory Tests 01/23/25 07:11 01/24/25 05:05 Chemistry Test 01/24/25 05:05 Albumin 2.9 g/dL (3.2-4.8) L Calcium Level 7.5 mg/dL (8.7-10.4) L Total Protein 5.1 g/dL (5.7-8.2) L LFT Test 01/24/25 05:05 Alanine Aminotransferase (ALT) 14 U/L (7-40) Alkaline Phosphatase 68 U/L (46-116) Aspartate Amino Transferase (AST) 12 U/L (13-40) L Total Bilirubin < 0.2 mg/dL (0.2-1.0) L Assessment/Plan Assessment/Plan End-stage renal disease on peritoneal dialysis Hypotension Intractable abdominal pain Thrombocytopenia Elevated lactic acid level Anemia of chronic disease Generalized weakness suspected gastroenteritis started on abx nephrology consulted Plan discussed with: Patient Date of Service: Jan 23, 2025 Billing Provider: HARVEY GLASGOW DO Common Visit Codes: [id number] INP/OBS CARE(HIGH) HARVEY GLASGOW DO Jan 24, 2025 14:31
[2025-01-24] MEDS ORDERED: METR-344 PO (14:45)
--- NOTE | 2025-01-24 14:50 | DVHDS2 ---
Discharge Summary Date of Admission Jan 22, 2025 at 20:37 Date of Discharge: Jan 24, 2025 Labs/Diagnostic Data: Laboratory Results Test 01/24/25 05:05 01/23/25 07:11 01/22/25 20:25 01/22/25 17:05 Sodium Level 134 mmol/L (136-145) Potassium Level 5.4 mmol/L (3.5-5.1) Chloride Level 97 mmol/L (98-107) Carbon Dioxide Level 24 mmol/L (20-31) Anion Gap 13 (5-15) Blood Urea Nitrogen 58 mg/dL (9-23) Creatinine 13.86 mg/dL (0.700-1.30) Glomerular Filtration Rate Calc 4 mL/min (>90) BUN/Creatinine Ratio 4.2 (10.0-20.0) Serum Glucose 115 mg/dL (74-106) Calcium Level 7.5 mg/dL (8.7-10.4) Total Bilirubin < 0.2 mg/dL (0.2-1.0) Aspartate Amino Transferase (AST) 12 U/L (13-40) Alanine Aminotransferase (ALT) 14 U/L (7-40) Alkaline Phosphatase 68 U/L (46-116) Total Protein 5.1 g/dL (5.7-8.2) Albumin 2.9 g/dL (3.2-4.8) Random Vancomycin Level 12.0 ug/mL (5-10) White Blood Count 6.7 10^3/uL (4.4-10.8) Red Blood Count 2.82 10^6/uL (4.5-5.90) Hemoglobin 9.4 g/dL (13.5-17.5) Hematocrit 26.9 % (41.0-53.0) Mean Corpuscular Volume 95.3 fL (80.0-100.0) Mean Corpuscular Hemoglobin 33.4 pg (28.0-32.0) Mean Corpuscular Hemoglobin Concent 35.1 g/dL (32.0-36.0) Red Cell Distribution Width 13.2 % (11.8-14.3) Platelet Count 63 10^3/uL (140-450) Mean Platelet Volume 8.9 fL (6.9-10.8) Neutrophils (%) (Auto) 82.1 % (37.0-80.0) Lymphocytes (%) (Auto) 8.4 % (10.0-50.0) Monocytes (%) (Auto) 7.2 % (0.0-12.0) Eosinophils (%) (Auto) 1.8 % (0.0-7.0) Basophils (%) (Auto) 0.5 % (0.0-2.0) Neutrophils # (Auto) 5.5 10 ^3/uL (1.6-8.6) Lymphocytes # (Auto) 0.6 10 ^3/uL (0.4-5.4) Monocytes # (Auto) 0.5 10 ^3/uL (0-1.3) Eosinophils # (Auto) 0.1 10 ^3/uL (0-0.8) Basophils # (Auto) 0 10 ^3/uL (0-0.2) Nucleated Red Blood Cells 0.0 % Lactic Acid Level 1.5 mmol/L (0.4-2.0) Troponin I High Sensitivity 10 ng/L (</=54) B-Type Natriuretic Peptide 33.91 pg/mL (0-100) Lipase 36 U/L (12-53) Other Laboratory Tests 01/24/25 05:05 01/23/25 07:11 Brief Hx & Hospital Course: End-stage renal disease on peritoneal dialysis Hypotension Intractable abdominal pain Thrombocytopenia Elevated lactic acid level Anemia of chronic disease Generalized weakness suspected gastroenteritis discharged to home with abx Condition at Discharge: Fair Final Diagnosis/Problems List see above Discharge Disposition: Home Discharge Instruct/Medications Diet: Cardiac 2g Na,low cholest Activity: No Restrictions, As Tolerated Scheduled Amlodipine Besylate (Norvasc Tablet), 1 TAB PO DAILY, (Reported) Apixaban Base (Eliquis), 5 MG PO BID Apixaban Base (Eliquis), 5 MG PO BID Apixaban Base (Eliquis), 10 MG PO BID Aspirin (Aspir-Low Ec), 1 TAB PO DAILY B-Complex W/ C & Folic Acid (Nephro-Steve Rx), 1 TAB PO DAILY Calcitriol (Calcitriol), 1 CAP PO DAILY, (Reported) Calcium Acetate (Phoslo Capsule), 2 CAP PO TID Calcium Carbonate (Antacid) (Gnp Antacid), 1 TAB PO BID, (Reported) Cholecalciferol (D3 Maximum Strength), 5,000 UNIT PO DAILY, (Reported) Febuxostat (Febuxostat), 80 MG PO QAM, (Reported) Ferrous Sulfate (Iron), 325 MG PO BID Fludrocortisone Acetate (Fludrocortisone Acetate), 1 TAB PO DAILY, (Reported) Gabapentin (Gabapentin), 3 CAP PO TID, (Reported) Hydralazine Hcl (Hydralazine Hcl), 1 TAB PO BID, (Reported) Losartan Potassium (Losartan Potassium), 1 TAB PO HS, (Reported) Metronidazole (Flagyl), 1 TAB PO TID Mycophenolate Mofetil (Mycophenolate Mofetil), 250 MG PO BID, (Reported) Pantoprazole Sodium Sesquihydr (Protonix), 40 MG PO DAILY Sitagliptin Phosphate (Januvia), 1 TAB PO DAILY Sodium Bicarbonate (Sodium Bicarbonate), 1 TAB PO DAILY, (Reported) Tacrolimus (Tacrolimus), 0 PO UD, (Reported) Durable Medical Equipment Blood Glucose Monitoring Suppl (D-Care Glucometer Kit/Glu W/Device), KIT XX, (DME) Discharge Statement: "Patient was advised to return to the ER or call 911 if any headaches, dizziness, shortness of breath, chest pain, abdominal pain, bleeding, fevers, or worsening of medical condition. Patient was counseled about treatment plan, medications, possible side effects, patientverbalized understanding. All questions were answered to the best of my ability. This discharge took greater then 30 minutes in planning, reviewing documentation, counseling the patient, and discussing with other team members." ASSESSMENT ASSESSMENT Assessment Date of Service: Jan 24, 2025 Billing Provider: HARVEY GLASGOW DO Common Visit Codes: [id number] DISCH DAY >30min HARVEY GLASGOW DO Jan 24, 2025 14:50
--- NOTE | 2025-01-24 19:01 | DVHPN2 ---
Progress Note - Dictate Date Seen: Jan 24, 2025 Has the PT tested + for MRSA If YES, has PT been informed?: No Medical Necessity Reason Pt with a Central, PICC or Fol: No Subjective Patient was seen and evaluated in follow up. No acute events overnight. Patient reports feeling better. Abdominal pain has improved. Denies any BM's today. He wants to be discharged home for dialysis. vital signs Vital Sign Date Time Temp Pulse Resp B/P (MAP) Pulse Ox O2 Delivery O2 Flow Rate FiO2 01/24/25 13:00 98.8 74 18 114/73 (87) 97 98.8 01/24/25 08:00 Room Air* 0 21 Total Intake and Output 01/23/25 01/23/25 01/24/25 15:00 23:00 07:00 Intake Total 2558 ml 2000 ml Balance 2558 ml 2000 ml medications Current Medications Medications Dose Ordered Sig/Dahlia Route Start Time Stop Time Status Last Admin Dose Admin Vancomycin HCl 250 ml @ 250 mls/hr Q1H IV 01/24/25 10:00 01/24/25 10:00 UNV objective Vitals and nursing notes reviewed. General Appearance: Cooperative, No acute distress HEENT: Atraumatic, PERRLA, EOMI, Mucous membr. moist/pink Respiratory: Normal air movement Cardiovascular: Regular rate, Normal S1, Normal S2, No murmurs Abdominal: Normal bowel sounds, Soft, No hepatospenomegaly, No masses Extremities: No clubbing, No cyanosis, No edema, Normal pulses, No tenderness/swelling Skin: No rashes, No significant lesion Neuro: Alert, Oriented X3, Normal speech, Normal tone, Sensation intact, Cranial nerves 3-12 NL, Reflexes 2+ Psych/Mental Status: Mental status NL, Mood NL laboratory and microbiology Laboratory Tests 01/24/25 05:05 01/23/25 07:11 Test 01/24/25 05:05 Range/Units Serum Glucose 115 H 74-106 mg/dL Problem List Intractable abdominal pain End-stage renal disease on peritoneal dialysis Hypotension Thrombocytopenia Elevated lactic acid level Anemia of chronic disease Generalized weakness Assessment/Plan Agree with current supportive medical care. GI consulted. F/u peritoneal fluid cultures. PD with 1.5% dialysate. Once discharged, resume per previous prescription. Empirical IV antibiotics with Vancomycin and Ceftazidime. Home medications resumed. Pain management prn. Additional plan as per the hospital course. Dietary Evaluation Review Comments: 1. CHO energy supported through daily dialysate solutions, r/t PD, aeb 1.5% dialysate per MD order. 2. High protein low Carb diet: CCHO-45 Renal-95g protein or higher each day Expected Outcomes/Goals: normal serum albumin and tProtein, controlled DM, gradual wt loss Plan discussed with: Patient, Other (RN) DEQUAN MAN DO Jan 24, 2025 19:01
[2025-01-24] MEDS ORDERED: cefTAZidime 1 GM in SODIUM CHL 0.9% 50 ML IV SCH (20:00)
[2025-01-24] MEDS ORDERED: cefTAZidime 0.5 GM in SODIUM CHL 0.9% 50 ML IV SCH (22:00)
--- NOTE | 2025-01-25 08:41 | ECG ---
[facility] Test Date: 2025-01-22 Test Time: 16:31:46 Pat Name: ALAYNA BOWERS Department: er Room: 0205T A Gender: M Endocrinology Physician: jess : [id number] Requested By: JO MATIAS Order Number: [id number] Reading MD: Rodolfo Laguerre Measurements Intervals [place] Rate: 83 P: 24 SD: 133 QRS: -23 QRSD: 89 T: 29 QT: 376 QTc: 442 Interpretive Statements Sinus rhythm Borderline left axis deviation Consider anterior infarct Baseline wander in lead(s) III,V2 Electronically Signed On 01-26-2025 15:51:30 PDT by Rodolfo Laguerre Please click the below link to view image of tracing.
[2025-01-26 12:07] LABS: Glucose, Body Fluid 422.0 mg/dL (.); LD, Body Fluid 87.0 IU/L (.)
== END 2025-01-24 17:15 | disposition home or self-care (01) | DRG 371 ==
LOC: ER 15:34 → OVERFLOW 20:37 → TELE-CENTR 23:55
PROVIDERS: ADMIT Internal Medicine; ATTEND Internal Medicine
DX: A04.9 Bacterial intestinal infection, unspecified (principal); N18.6 End stage renal disease; E87.20 Acidosis, unspecified; Z94.4 Liver transplant status; I12.0 Hypertensive chronic kidney disease with stage 5 chronic kidney disease or end stage renal disease; K74.60 Unspecified cirrhosis of liver; I95.9 Hypotension, unspecified; E78.5 Hyperlipidemia, unspecified; D69.6 Thrombocytopenia, unspecified; D63.8 Anemia in other chronic diseases classified elsewhere; M10.9 Gout, unspecified; K21.9 Gastro-esophageal reflux disease without esophagitis; E11.22 Type 2 diabetes mellitus with diabetic chronic kidney disease; Z79.01 Long term (current) use of anticoagulants; Z79.899 Other long term (current) drug therapy; Z99.2 Dependence on renal dialysis; Z83.3 Family history of diabetes mellitus
CPT/HCPCS: 36415; 74176; 80053; 80202; 82565; 83605; 83690; 83880; 84484; 85025; 87205; 89051; 93005; 96361; 96372; 96374; G0378; J3490; Q0162